=== PATIENT | male | born 1955 | race Caucasian/White ===

== ENCOUNTER 2017-03-09 07:59 | Inpatient (IN) | payer MEDICARE, BC ==
[~2017-03-09] VITALS: Ht 172.7 cm; Wt 93.0 kg
[~2017-03-09 07:59] MED LIST: AMLODIPINE BESY10 MG PO; GLIMEPIRIDE2 MG PO; GLIPIZIDE10 MG PO; LASIX20 MG PO; NEXIUM40 MG; PREDNISONE20 MG PO; SODIUM BICARBO454 GM PO
[2017-03-09] MEDS ORDERED: DEXTROSE 50% SYRINGE 50 ML IV STA (08:27)
[2017-03-09 08:32] LABS: BASOPHILS % 0.1 % (0.0-1.0); HEMATOCRIT 37.1 % (38.2-49.6); HEMOGLOBIN 12.5 g/dL (14.0-18.0); LYMPHOCYTES # (AUTO) 0.6 (1.0-3.2); LYMPHOCYTES % 3.2 % (18.0-39.1); MEAN CORPUSCULAR HEMOGLOBIN 32.9 pg (28-32); MEAN CORPUSCULAR HGB CONC 33.7 g/dL (31-35); MEAN CORPUSCULAR VOLUME 97.6 fL (81-99); MONOCYTES # (AUTO) 0.4 (0.2-0.8); MONOCYTES % 2.4 % (4.4-11.3); NEUTROPHILS # (AUTO) 16.2 (2.1-6.9); NEUTROPHILS % 93.4 % (38.7-80.0); PLATELET COUNT 135 x10e3/uL (140-360); RED CELL DISTRIBUTION WIDTH 15.9 % (11.7-14.4)
[2017-03-09 08:53] LABS: ALBUMIN 3.4 g/dL (3.5-5.0); ALBUMIN/GLOBULIN RATIO 0.8 (0.8-2.0); ANION GAP 24.4 mmol/L (8-16); CALCIUM 9.3 mg/dL (8.4-10.2); CREATININE, SERUM 9.68 mg/dL (0.72-1.25); POTASSIUM 4.4 mmol/L (3.5-5.1)
--- NOTE | 2017-03-09 08:58 | Diagnostic Imaging Report ---
PROCEDURE: CHEST SINGLE (PORTABLE) COMPARISON: 09/28/2014. INDICATIONS: SHORT OF BREATH, LOW BLOOD SUGAR FINDINGS: Lungs are well-inflated. Patchy consolidation laterally within the left midlung with loss of the left heart border at the apex.. No pleural effusion or pneumothorax. Stable cardiomediastinal contour with tortuosity of the thoracic aorta. Heart size is normal for technique. No acute osseous abnormality. CONCLUSION: Lingular pneumonia. Followup chest radiograph in 6-8 weeks is suggested to document resolution. Dictated by: Schuyler Mondragon M.D. on 03/09/2017 at 9:06 Electronically approved by: Schuyler Mondragon M.D. on 03/09/2017 at 9:06
[2017-03-09] MEDS ORDERED: CEFTRIAXONE SOD 1 GM VIAL IV SCH ×2 (09:45→12:15)
[2017-03-09] MEDS ORDERED: AZITHROMYCIN 500MG/NS 250 ML 250 ML IV ONE (09:45)
[2017-03-09] MEDS ORDERED: SODIUM CHLORIDE 0.9% 1000ML 1,000 ML IV SCH (12:07)
[2017-03-09] MEDS ORDERED: AZITHROMYCIN 500MG/SOD CHL 0.9% 250ML BAG IV SCH (12:15)
[2017-03-09] MEDS ORDERED: ALBUTEROL SULF 0.083% NEB SOLN 3 ML NEB NEB SCH (12:15)
[2017-03-09] MEDS: AZITHROMYCIN 500MG/NS 250 ML 250 ML IV SCH (12:28)
[2017-03-09] MEDS: IPRATROPIUM BROMIDE 0.02% 2.5 ML NEB NEB SCH ×2 (12:51→16:55)
[2017-03-09] MEDS: ALBUTEROL SULF 0.083% NEB SOLN 3 ML NEB NEB SCH ×2 (12:52→16:55)
[2017-03-09] MEDS: DEXTROSE 50% SYRINGE 50 ML IV PRN ×2 (14:10→17:09)
[2017-03-09] MEDS ORDERED: ATORVASTATIN CA20 MG PO (16:45)
[2017-03-09] MEDS ORDERED: ASPIR 8181 MG PO (16:45)
[2017-03-09] MEDS ORDERED: PLAVIX75 MG PO (16:45)
[2017-03-09] MEDS ORDERED: METOPROLOL SUCC25 MG PO (16:45)
[2017-03-09] MEDS: INSULIN REGULAR, HUMAN 100 UNIT/1 ML 3ML VIAL SQ SCH ×2 (17:09→20:59)
[2017-03-09] MEDS ORDERED: IPRATROPIUM BROMIDE 0.02% 2.5 ML NEB NEB SCH (18:00)
[2017-03-09] MEDS: DEXTROSE 5%/0.45% SOD CHL 1,000 ML IV SCH (18:06)
--- NOTE | 2017-03-09 18:58 | History and Physical ---
A 61-year-old male comes in with hypoglycemia and hyperglycemia. HISTORY OF PRESENT ILLNESS: Mr. Yuri Velazquez is a 61-year-old gentleman with a history of end-stage renal disease, who did not do his dialysis for the last Wednesday, which he was supposed to because of chills and rigors. The patient missed dialysis, and continued taking his medication. Today in the morning, the patient was feeling weak, fatigued and fell on his back. Checked his blood sugar and it was in the 30s. Fell on his back and EMS was activated. Came in and saw that his blood sugars were in the 30s. Transferred him here. Was found to have hypoglycemia, and also pneumonia. MEDICATIONS: At home are: 1. Amlodipine 10 mg. 2. Aspirin 81 mg. 3. Atorvastatin 20 mg. 4. Clopidogrel 75 mg. 5. Nexium 40 mg. 6. Lasix 20 mg. 7. Glimepiride 10 mg. 8. Glipizide 10 mg. 9. Metoprolol 25 mg. 10. Prednisone 20 mg. 11. Sodium bicarb 454 mg. 12. 100 mg twice a day. SURGICAL HISTORY: History of fistula in the past. The patient also had stents put in recently by Dr. Givens. MEDICAL HISTORY: History of hypertension, history of coronary artery disease, history of hyperlipidemia, history of reflux esophagitis, history of diabetes mellitus, end-stage renal disease. REVIEW OF SYSTEMS: Negative for chest pain. Positive for shortness of breath. Positive for some nausea. No vomiting. No diarrhea. No constipation or rectal bleeding. Positive for chills and rigors. No hematochezia. No hematemesis. No diplopia. No blurry vision. SOCIAL HISTORY: No ETOH. No IV drug abuse. PHYSICAL EXAMINATION GENERAL: The patient is alert and oriented times 3. VITAL SIGNS: He is also having some chills as we speak. Pulse is 94, respirations 18, blood pressure 144/80, and pulse ox 98%, temperature not recorded right now. Temperature is 97.9. HEENT: Normocephalic and atraumatic. Pupils reactive to light and accommodation. CV: S1 and S2. Tachy. ABDOMEN: Soft, nontender and nondistended. LUNGS: Positive for rhonchi bilaterally. Short inspiratory wheezes too. EXTREMITIES: No clubbing. No cyanosis. No edema. Decreased pulses in both bilateral extremities, but palpable. IMAGING: Chest x-ray shows lingular pneumonia. LABORATORY VALUES: White count is 17,000, hemoglobin 12.5, hematocrit 33.1. Neutrophil count was 16.2. Chemistry: Sodium 141, bicarb low at 20, BUN 18, creatinine 9.68. Estimated GFR of 5. Glucose is 48. Repeat was 77 and 86. Total bili was 0.9. AST and ALT normal. Albumin was low at 3.4. ASSESSMENT 1. Pneumonia, lingular. 2. Hypoglycemia secondary to use of glimepiride. Put the patient on D5-1/2 normal saline at 70 mL an hour. Once dialysis is done, the patient can be taken off of that. For right now, will continue the patient on Rocephin and Zithromax. Home medications will be restarted. Further recommendation per clinical course. Also, albuterol and Atrovent treatments, and O2 protocol will be reinstated. Job#: [id number] PR
[2017-03-09] MEDS: CEFTRIAXONE SOD 1 GM VIAL IV SCH (20:58)
[2017-03-09] MEDS: ATORVASTATIN 40 MG TAB PO SCH (20:59)
[2017-03-09] MEDS ORDERED: ATORVASTATIN 20 MG TAB PO SCH (21:00)
[2017-03-09] MEDS ORDERED: SODIUM CHLORIDE 0.9% 1000ML 2,000 ML ONE (22:29)
[2017-03-10] VITALS (8 sets, daily range): BP systolic 108–127; BP diastolic 60–75
[2017-03-10] MEDS: DEXTROSE 50% SYRINGE 50 ML IV PRN (00:17)
[2017-03-10] MEDS: IPRATROPIUM BROMIDE 0.02% 2.5 ML NEB NEB SCH ×4 (02:25→21:05)
[2017-03-10] MEDS: ALBUTEROL SULF 0.083% NEB SOLN 3 ML NEB NEB SCH ×6 (02:25→23:00)
[2017-03-10] MEDS: DEXTROSE 5%/0.45% SOD CHL 1,000 ML IV SCH (06:39)
[2017-03-10] MEDS: TRAMADOL HCL 50 MG TAB PO PRN ×2 (06:43→12:13)
[2017-03-10] MEDS: INSULIN REGULAR, HUMAN 100 UNIT/1 ML 3ML VIAL SQ SCH ×4 (07:30→21:14)
[2017-03-10] MEDS ORDERED: SODIUM CHLORIDE 0.9% 1000ML 2,000 ML ONE (08:01)
[2017-03-10] MEDS: METOPROLOL SUCCINATE 25 MG TAB XL PO SCH (09:00)
[2017-03-10] MEDS: AMLODIPINE BESYLATE 10 MG TAB PO SCH ×2 (09:00→15:56)
[2017-03-10] MEDS ORDERED: OSELTAMIVIR PHOSPHATE 75 MG CAP PO SCH (09:00)
[2017-03-10] MEDS ORDERED: SODIUM BICARBONATE PO SCH (09:00)
[2017-03-10] MEDS: AZITHROMYCIN 500MG/NS 250 ML 250 ML IV SCH (10:43)
[2017-03-10] MEDS: CEFTRIAXONE SOD 1 GM VIAL IV SCH ×2 (10:43→21:14)
[2017-03-10] MEDS: CLOPIDOGREL BISULFATE 75 MG TAB PO SCH (10:45)
[2017-03-10] MEDS: PANTOPRAZOLE SOD 40 MG TABEC PO SCH (10:45)
[2017-03-10] MEDS: ASPIRIN 81 MG CHEW TAB PO SCH (10:45)
[2017-03-10] MEDS: SODIUM BICARBONATE 650 MG TAB PO SCH ×2 (10:45→16:54)
[2017-03-10] MEDS ORDERED: SODIUM CHLORIDE 0.9% 1000ML 1,000 ML IV PRN (11:30)
[2017-03-10] MEDS ORDERED: MANNITOL 25% 12.5GM/50 ML VIAL IV PRN (11:30)
[2017-03-10] MEDS ORDERED: HEPARIN SOD (PORCINE) 1000 UNIT/ML SDV IV PRN (11:30)
[2017-03-10] MEDS ORDERED: ALBUMIN HUMAN 50 ML IV PRN (11:30)
[2017-03-10] MEDS ORDERED: VANCOMYCIN HCL 1 GM in SODIUM CHLORIDE 0.9% 250ML 250 ML IV SCH ×2 (14:45→15:00)
--- NOTE | 2017-03-10 15:38 | Consultation ---
DATE OF CONSULTATION: REASON FOR CONSULTATION: Pneumonia. HISTORY OF PRESENT ILLNESS: This is a very pleasant, 61-year-old white gentleman who has history of end-stage disease on hemodialysis. Apparently, he missed his dialysis day on Wednesday. History of hypertension. History of hypercholesterolemia and asthma. The patient is telling me that he is coming with 2 days' history of fever, chills, not feeling well, shortness of breath, cough. He came to the emergency room. In the emergency room, he had a glucose of 30. He was evaluated. He was admitted. Infectious disease was consulted today. He said he is feeling better. PAST MEDICAL HISTORY: Hypertension, coronary artery disease, hyperlipidemia, reflux esophagitis, end-stage renal disease on hemodialysis, diabetes mellitus. PAST SURGICAL HISTORY: IV access for dialysis, AV fistula. ALLERGIES: NKA. SOCIAL HISTORY: He denies smoking, drug abuse or alcohol abuse. FAMILY HISTORY: Hypertension. HOME MEDICATIONS: Amlodipine, aspirin, atorvastatin, clopidogrel, Nexium, Lasix, glipizide and prednisone. Medication list reviewed. LABORATORY DATA: Reviewed. His white count is 17.3, hemoglobin 12.5, hematocrit 37. His influenza A was positive. His blood cultures are showing gram-positive cocci. PHYSICAL EXAMINATION GENERAL: He is alert and oriented, does not seem to be in acute distress. VITALS: Stable, currently afebrile. HEENT: He is not icteric. NECK: Supple. CHEST: A few crackles bilateral. COR: No murmur. ABDOMEN: Soft. Bowel sounds present. EXTREMITIES: No edema. SKIN: No rash. IMPRESSION 1. Sepsis. 2. Influenza. 3. Chronic kidney disease. 4. Bacteremia, gram-positive cocci, concern about the source. 5. Pneumonia. Will put him on vancomycin. Continue Rocephin. Continue azithromycin. Continue Tamiflu. Will adjust for his kidney function. Will follow with you. Recheck CBC. Recheck chem panel. Further recommendations depending on his finding of the cultures. Job#: [id number]
[2017-03-10] MEDS: ATORVASTATIN 40 MG TAB PO SCH (21:14)
[2017-03-11] VITALS (7 sets, daily range): BP systolic 107–143; BP diastolic 58–89
[2017-03-11] MEDS: IPRATROPIUM BROMIDE 0.02% 2.5 ML NEB NEB SCH ×4 (03:00→20:15)
[2017-03-11] MEDS: ALBUTEROL SULF 0.083% NEB SOLN 3 ML NEB NEB SCH ×5 (03:00→20:15)
[2017-03-11] MEDS: INSULIN REGULAR, HUMAN 100 UNIT/1 ML 3ML VIAL SQ SCH ×4 (07:30→20:45)
[2017-03-11 08:03] LABS: BASOPHILS % 0.6 % (0.0-1.0); EOSINOPHILS % 0.6 % (0.0-6.0); HEMATOCRIT 31.8 % (38.2-49.6); HEMOGLOBIN 10.6 g/dL (14.0-18.0); LYMPHOCYTES # (AUTO) 1.2 (1.0-3.2); MEAN CORPUSCULAR HEMOGLOBIN 32.8 pg (28-32); MEAN CORPUSCULAR HGB CONC 33.3 g/dL (31-35); MEAN CORPUSCULAR VOLUME 98.5 fL (81-99); MONOCYTES # (AUTO) 0.3 (0.2-0.8); MONOCYTES % 6.5 % (4.4-11.3); NEUTROPHILS # (AUTO) 3.5 (2.1-6.9); NEUTROPHILS % 68.9 % (38.7-80.0); PLATELET COUNT 117 x10e3/uL (140-360); RED BLOOD COUNT 3.23 x10e6/uL (4.3-5.7); RED CELL DISTRIBUTION WIDTH 16.1 % (11.7-14.4)
[2017-03-11] MEDS: ASPIRIN 81 MG CHEW TAB PO SCH (08:26)
[2017-03-11] MEDS: SODIUM BICARBONATE 650 MG TAB PO SCH ×2 (08:26→17:26)
[2017-03-11] MEDS: CLOPIDOGREL BISULFATE 75 MG TAB PO SCH (08:26)
[2017-03-11] MEDS: CEFTRIAXONE SOD 1 GM VIAL IV SCH ×2 (08:26→20:45)
[2017-03-11] MEDS: AZITHROMYCIN 500MG/NS 250 ML 250 ML IV SCH (08:26)
[2017-03-11] MEDS: OSELTAMIVIR PHOSPHATE 75 MG CAP PO SCH (08:26)
[2017-03-11] MEDS: PANTOPRAZOLE SOD 40 MG TABEC PO SCH (08:26)
[2017-03-11 08:30] LABS: ANION GAP 18.3 mmol/L (8-16); CALCIUM 8.8 mg/dL (8.4-10.2); CREATININE, SERUM 7.17 mg/dL (0.72-1.25); POTASSIUM 4.3 mmol/L (3.5-5.1)
[2017-03-11] MEDS: AMLODIPINE BESYLATE 10 MG TAB PO SCH ×2 (09:00→17:26)
[2017-03-11] MEDS: METOPROLOL SUCCINATE 25 MG TAB XL PO SCH (09:00)
[2017-03-11] MEDS: TRAMADOL HCL 50 MG TAB PO PRN (09:07)
[2017-03-11] MEDS: ATORVASTATIN 40 MG TAB PO SCH (20:45)
[2017-03-12 00:32] VITALS: BP 140/83
[2017-03-12] MEDS: IPRATROPIUM BROMIDE 0.02% 2.5 ML NEB NEB SCH ×5 (02:45→19:15)
[2017-03-12] MEDS: ALBUTEROL SULF 0.083% NEB SOLN 3 ML NEB NEB SCH ×6 (02:45→23:00)
[2017-03-12 04:28] VITALS: BP 136/82
[2017-03-12] MEDS: PANTOPRAZOLE SOD 40 MG TABEC PO SCH (07:30)
[2017-03-12] MEDS: INSULIN REGULAR, HUMAN 100 UNIT/1 ML 3ML VIAL SQ SCH ×4 (07:30→21:00)
[2017-03-12 08:00] VITALS: BP 149/69
[2017-03-12] MEDS: CLOPIDOGREL BISULFATE 75 MG TAB PO SCH (09:00)
[2017-03-12] MEDS: AMLODIPINE BESYLATE 10 MG TAB PO SCH ×2 (09:00→17:34)
[2017-03-12] MEDS: CEFTRIAXONE SOD 1 GM VIAL IV SCH ×2 (09:00→22:25)
[2017-03-12] MEDS: SODIUM BICARBONATE 650 MG TAB PO SCH ×2 (09:00→17:33)
[2017-03-12] MEDS: AZITHROMYCIN 500MG/NS 250 ML 250 ML IV SCH (09:00)
[2017-03-12] MEDS: METOPROLOL SUCCINATE 25 MG TAB XL PO SCH (09:00)
[2017-03-12] MEDS: ASPIRIN 81 MG CHEW TAB PO SCH (09:00)
[2017-03-12 12:00] VITALS: BP 140/70
[2017-03-12 16:00] VITALS: BP 145/87
[2017-03-12] MEDS: OSELTAMIVIR PHOSPHATE 75 MG CAP PO SCH (17:32)
[2017-03-12 20:00] VITALS: BP 150/79
[2017-03-12] MEDS: ATORVASTATIN 40 MG TAB PO SCH (22:25)
[2017-03-12] MEDS: TRAMADOL HCL 50 MG TAB PO PRN (22:36)
[2017-03-13] VITALS: BP 138/68
[2017-03-13] MEDS: IPRATROPIUM BROMIDE 0.02% 2.5 ML NEB NEB SCH ×4 (02:00→21:45)
[2017-03-13] MEDS: ALBUTEROL SULF 0.083% NEB SOLN 3 ML NEB NEB SCH ×5 (02:00→21:45)
[2017-03-13 04:00] VITALS: BP 128/77
[2017-03-13 08:00] VITALS: BP 147/81
[2017-03-13] MEDS: PANTOPRAZOLE SOD 40 MG TABEC PO SCH (09:01)
[2017-03-13] MEDS: INSULIN REGULAR, HUMAN 100 UNIT/1 ML 3ML VIAL SQ SCH ×4 (09:40→21:30)
[2017-03-13] MEDS: AMLODIPINE BESYLATE 10 MG TAB PO SCH ×2 (09:51→17:34)
[2017-03-13] MEDS: AZITHROMYCIN 500MG/NS 250 ML 250 ML IV SCH (09:51)
[2017-03-13] MEDS: OSELTAMIVIR PHOSPHATE 75 MG CAP PO SCH (09:51)
[2017-03-13] MEDS: CLOPIDOGREL BISULFATE 75 MG TAB PO SCH (09:51)
[2017-03-13] MEDS: ASPIRIN 81 MG CHEW TAB PO SCH (09:51)
[2017-03-13] MEDS: SODIUM BICARBONATE 650 MG TAB PO SCH ×2 (09:51→17:34)
[2017-03-13] MEDS: CEFTRIAXONE SOD 1 GM VIAL IV SCH ×2 (09:51→21:30)
[2017-03-13] MEDS: METOPROLOL SUCCINATE 25 MG TAB XL PO SCH (09:52)
[2017-03-13 12:00] VITALS: BP 130/65
[2017-03-13 16:00] VITALS: BP 84/63
[2017-03-13 20:00] VITALS: BP 139/71
[2017-03-13] MEDS: ATORVASTATIN 40 MG TAB PO SCH (21:30)
[2017-03-14] MEDS: ALBUTEROL SULF 0.083% NEB SOLN 3 ML NEB NEB SCH ×6 (02:45→23:30)
[2017-03-14] MEDS: IPRATROPIUM BROMIDE 0.02% 2.5 ML NEB NEB SCH ×5 (02:45→23:30)
[2017-03-14 04:00] VITALS: BP 145/80
[2017-03-14 08:00] VITALS: BP 149/88
[2017-03-14] MEDS: CEFTRIAXONE SOD 1 GM VIAL IV SCH ×2 (08:53→20:52)
[2017-03-14] MEDS: PANTOPRAZOLE SOD 40 MG TABEC PO SCH (08:53)
[2017-03-14] MEDS: CLOPIDOGREL BISULFATE 75 MG TAB PO SCH (08:54)
[2017-03-14] MEDS: SODIUM BICARBONATE 650 MG TAB PO SCH ×2 (08:54→16:51)
[2017-03-14] MEDS: METOPROLOL SUCCINATE 25 MG TAB XL PO SCH (08:54)
[2017-03-14] MEDS: OSELTAMIVIR PHOSPHATE 75 MG CAP PO SCH (08:54)
[2017-03-14] MEDS: AMLODIPINE BESYLATE 10 MG TAB PO SCH ×2 (08:54→16:51)
[2017-03-14] MEDS: AZITHROMYCIN 500MG/NS 250 ML 250 ML IV SCH (08:54)
[2017-03-14] MEDS: ASPIRIN 81 MG CHEW TAB PO SCH (08:54)
[2017-03-14] MEDS: INSULIN REGULAR, HUMAN 100 UNIT/1 ML 3ML VIAL SQ SCH ×4 (08:57→20:53)
[2017-03-14 16:00] VITALS: BP 134/80
[2017-03-14 20:00] VITALS: BP_SYST 106; BP_SYST 143; BP_DIAS 62; BP_DIAS 88
[2017-03-14] MEDS: ATORVASTATIN 40 MG TAB PO SCH (20:53)
[2017-03-15] VITALS: BP 141/80
[2017-03-15] MEDS: ALBUTEROL SULF 0.083% NEB SOLN 3 ML NEB NEB SCH ×4 (02:47→14:58)
[2017-03-15 04:00] VITALS: BP 136/81
[2017-03-15] MEDS: IPRATROPIUM BROMIDE 0.02% 2.5 ML NEB NEB SCH ×2 (07:00→13:00)
[2017-03-15] MEDS: INSULIN REGULAR, HUMAN 100 UNIT/1 ML 3ML VIAL SQ SCH ×3 (07:30→16:27)
[2017-03-15] MEDS: PANTOPRAZOLE SOD 40 MG TABEC PO SCH (07:30)
[2017-03-15 08:00] VITALS: BP 136/81
[2017-03-15 08:23] VITALS: BP 136/78
[2017-03-15] MEDS: CLOPIDOGREL BISULFATE 75 MG TAB PO SCH (09:00)
[2017-03-15] MEDS ORDERED: MANNITOL 25% 12.5GM/50 ML VIAL IV PRN (09:00)
[2017-03-15] MEDS: SODIUM BICARBONATE 650 MG TAB PO SCH ×2 (09:00→16:28)
[2017-03-15] MEDS ORDERED: ALBUMIN HUMAN 12.5GM / 50ML IV PRN (09:00)
[2017-03-15] MEDS: AMLODIPINE BESYLATE 10 MG TAB PO SCH ×2 (09:00→16:28)
[2017-03-15] MEDS ORDERED: SODIUM CHLORIDE 0.9% 1000ML 2,000 ML IV PRN (09:00)
[2017-03-15] MEDS: OSELTAMIVIR PHOSPHATE 75 MG CAP PO SCH (09:00)
[2017-03-15] MEDS: CEFTRIAXONE SOD 1 GM VIAL IV SCH (09:00)
[2017-03-15] MEDS ORDERED: SODIUM CHLORIDE 0.9% 250ML 500 ML IV PRN (09:00)
[2017-03-15] MEDS: ASPIRIN 81 MG CHEW TAB PO SCH (09:00)
[2017-03-15] MEDS: AZITHROMYCIN 500MG/NS 250 ML 250 ML IV SCH (09:00)
[2017-03-15] MEDS: METOPROLOL SUCCINATE 25 MG TAB XL PO SCH (09:00)
[2017-03-15 11:46] LABS: BASOPHILS % 0.4 % (0.0-1.0); EOSINOPHILS # (AUTO) 0.2 (0.0-0.4); EOSINOPHILS % 2.2 % (0.0-6.0); HEMATOCRIT 33.2 % (38.2-49.6); HEMOGLOBIN 11.4 g/dL (14.0-18.0); LYMPHOCYTES # (AUTO) 1.2 (1.0-3.2); LYMPHOCYTES % 13.7 % (18.0-39.1); MEAN CORPUSCULAR HEMOGLOBIN 32.7 pg (28-32); MEAN CORPUSCULAR HGB CONC 34.3 g/dL (31-35); MEAN CORPUSCULAR VOLUME 95.1 fL (81-99); MONOCYTES # (AUTO) 0.4 (0.2-0.8); MONOCYTES % 4.9 % (4.4-11.3); NEUTROPHILS # (AUTO) 6.5 (2.1-6.9); NEUTROPHILS % 77.8 % (38.7-80.0); RED BLOOD COUNT 3.49 x10e6/uL (4.3-5.7); RED CELL DISTRIBUTION WIDTH 15.3 % (11.7-14.4)
[2017-03-15 11:48] LABS: PLATELET COUNT 150 x10e3/uL (140-360)
[2017-03-15 12:20] VITALS: BP 109/75
[2017-03-15 12:20] LABS: ANION GAP 14.7 mmol/L (8-16); CALCIUM 8.9 mg/dL (8.4-10.2); CREATININE, SERUM 3.78 mg/dL (0.72-1.25); POTASSIUM 3.7 mmol/L (3.5-5.1)
[2017-03-15] MEDS ORDERED: VANCOMYCIN 1GM/NS 250 ML 250 ML IV SCH (14:00)
--- NOTE | 2017-03-15 15:45 | Progress Note ---
DATE: March 15, 2017 Mr. Velazquez does not want me to examine him, but he is overall doing much better. He has no complaints and he wants to talk to his doctor. He was very comfortable. He just had hemodialysis. Laboratory data reviewed and chart reviewed. PHYSICAL EXAMINATION: Refused. IMPRESSION: 1. Gram-positive cocci bacteremia, resolved. 2. Influenza, doing well. 3. Pneumonia, doing well. PLAN: Can discharge home with Z-Darrell and Augmentin for 5 more days. Job#: [id number]
[2017-03-15] MEDS ORDERED: AUGMENTIN 875-1 EACH PO (16:10)
[2017-03-15] MEDS ORDERED: AZITHROMYCIN250 MG PO (16:10)
[2017-03-15 16:33] VITALS: BP 119/74
[2017-03-15] MEDS ORDERED: VANCOMYCIN HCL 1 GM in SODIUM CHLORIDE 0.9% 250ML 250 ML IV SCH (16:45)
== END 2017-03-15 17:33 | disposition home or self-care (01) | DRG 871 ==
LOC: ER 07:59 → ERHOLD 12:34 → MED/SURG2 03-10 00:26
PROVIDERS: ADMIT Internal Medicine; ATTEND Internal Medicine
PROC: 5A1D70Z Performance of Urinary Filtration, Intermittent, Less than 6 Hours Per Day (ICD-10-PCS; principal; 2017-03-09)
DX: A41.9 Sepsis, unspecified organism (principal); N18.6 End stage renal disease; J11.00 Influenza due to unidentified influenza virus with unspecified type of pneumonia; E11.22 Type 2 diabetes mellitus with diabetic chronic kidney disease; E11.649 Type 2 diabetes mellitus with hypoglycemia without coma; I12.0 Hypertensive chronic kidney disease with stage 5 chronic kidney disease or end stage renal disease; Z99.2 Dependence on renal dialysis; J45.909 Unspecified asthma, uncomplicated; D64.9 Anemia, unspecified; T38.3X5A Adverse effect of insulin and oral hypoglycemic [antidiabetic] drugs, initial encounter; Z79.4 Long term (current) use of insulin; Z87.891 Personal history of nicotine dependence
CPT/HCPCS: 36415; 71010; 80048; 80053; 82948; 85025; 86706; 87040; 87071; 87186; 87205; 87400; 93005; 99284; J0456; J0696; J2150; J3370; J7030; J7050; J7799

== ENCOUNTER 2018-04-14 00:05 | Emergency (ER) | payer MEDICARE ==
[~2018-04-14] VITALS: Ht 172.7 cm; Wt 97.5 kg
[~2018-04-14 00:05] MED LIST changes: +ASPIR 8181 MG PO; +ATORVASTATIN CA20 MG PO; +AUGMENTIN 875-1 EACH PO; +AZITHROMYCIN250 MG PO; +METOPROLOL SUCC25 MG PO; +PLAVIX75 MG PO
--- OUTSIDE RECORDS SUMMARY | 2018-04-14 00:07 | XMS REPORT ---
Author Author [facility] Address Unknown Phone Unavailable Care Team Providers Care It Quality Assurance Analyst Name Role Phone Cris LINTON Unavailable Unavailable Problems This patient has no known problems. Allergies, Adverse Reactions, Alerts This patient has no known allergies or adverse reactions. Medications This patient has no known medications. Results Test Description Test Time Test Comments Text Results Atomic Results Result Comments CHEST SINGLE (PORTABLE) [place] [address] Patient Name: MICHAEL MAGANA MR #: [id number] : 1955 Age/Sex: 61/M Req #: [id number] Adm Physician: Ordered by: CLIFTON LINTON MD Report #: [id number] Location: ER Room/Bed: Procedure: [id number] DX/CHEST SINGLE (PORTABLE) Exam Date: 03/09/17 Exam Time: 0830 REPORT STATUS: Signed PROCEDURE: CHEST SINGLE (PORTABLE) COMPARISON: 09/28/2014. INDICATIONS: SHORT OF BREATH, LOW BLOOD SUGAR FINDINGS: Lungs are well-inflated. Patchy consolidation laterally within the left midlung with loss of the left heart border at the apex.. No pleural effusion or pneumothorax. Stable cardiomediastinal contour with tortuosity of the thoracic aorta. Heart size is normal for technique. No acute osseous abnormality. CONCLUSION: Lingular pneumonia. Followup chest radiograph in 6-8 weeks is suggested to document resolution. Dictated by: Safia Zaragoza M.D. on 03/09/2017 at 9:06 Electronically approved by: Safia Zaragzoa M.D. on 03/09/2017 at 9:06 Dictated By: SAFIA ZARAGOZA MD 5 Transcribed By: TITUS on 03/09/17905 COPY TO: CLIFTON LINTON MD
[2018-04-14] MEDS ORDERED: PREDNISONE 20 MG TAB PO ONE (00:45)
== END 2018-04-14 03:50 | disposition home or self-care (01) ==
LOC: FSED 00:05
DX: R21 Rash and other nonspecific skin eruption (principal); I10 Essential (primary) hypertension; E11.9 Type 2 diabetes mellitus without complications; N28.9 Disorder of kidney and ureter, unspecified
CPT/HCPCS: 99282

== ENCOUNTER → 2018-08-23 | Day surgery (SDC) | payer MEDICARE, OTHER ==
[~2018-08-23] MED LIST changes: +CO Q-10200 MG PO; +FISH OIL PO; +GABAPENTIN300 MG PO; +MIDAZOLAM HCL 2 MG/2 ML VIAL ONE; +MORPHINE SULFATE INJ 10 MG/ML ONE; +OR PHACO EYE KIT ONE; +PREOP PHACO EYE KIT ONE; +PRO AIR INH; +RENVELA0.8 GM PO; +SODIUM CHLORIDE 0.9% 500ML 500 ML ONE; +TASIGNA150 MG PO; +ULTRAM 50MG50 MG PO; +VIT D PO
[2018-08-23 13:00] VITALS: BP 130/76
== END | disposition home or self-care (01) ==
LOC: OR 08:33
PROVIDERS: ATTEND Ophthalmology
DX: H25.11 Age-related nuclear cataract, right eye (principal); E11.22 Type 2 diabetes mellitus with diabetic chronic kidney disease; I12.0 Hypertensive chronic kidney disease with stage 5 chronic kidney disease or end stage renal disease; N18.6 End stage renal disease; I48.91 Unspecified atrial fibrillation; J45.909 Unspecified asthma, uncomplicated; M25.511 Pain in right shoulder; Z88.6 Allergy status to analgesic agent; Z88.1 Allergy status to other antibiotic agents; Z99.2 Dependence on renal dialysis; Z79.4 Long term (current) use of insulin; Z79.02 Long term (current) use of antithrombotics/antiplatelets; Z79.82 Long term (current) use of aspirin; Z85.6 Personal history of leukemia; Z87.891 Personal history of nicotine dependence
CPT/HCPCS: 36415; 66984; 84132; J2250; J2270; J7040; V2632

== ENCOUNTER → 2018-09-06 | Day surgery (SDC) | payer MEDICARE, OTHER ==
[2018-09-06 13:15] VITALS: BP 133/69
== END | disposition home or self-care (01) ==
LOC: OR 09:44
PROVIDERS: ATTEND Ophthalmology
DX: H25.12 Age-related nuclear cataract, left eye (principal); C91.10 Chronic lymphocytic leukemia of B-cell type not having achieved remission; E11.22 Type 2 diabetes mellitus with diabetic chronic kidney disease; I12.0 Hypertensive chronic kidney disease with stage 5 chronic kidney disease or end stage renal disease; N18.6 End stage renal disease; J45.909 Unspecified asthma, uncomplicated; I48.91 Unspecified atrial fibrillation; I25.10 Atherosclerotic heart disease of native coronary artery without angina pectoris; Z88.6 Allergy status to analgesic agent; Z88.1 Allergy status to other antibiotic agents; Z79.4 Long term (current) use of insulin; Z79.84 Long term (current) use of oral hypoglycemic drugs; Z79.02 Long term (current) use of antithrombotics/antiplatelets; Z79.82 Long term (current) use of aspirin; Z95.5 Presence of coronary angioplasty implant and graft
CPT/HCPCS: 36415; 66984; 82948; 84132; J2250; J2270; J7040; V2632

== ENCOUNTER 2019-04-25 14:00 | Inpatient (IN) | payer MEDICARE, OTHER ==
[2019-04-18 10:27] LABS: BASOPHILS # (AUTO) 0.1 (0.0-0.1); BASOPHILS % 0.9 % (0.0-1.0); EOSINOPHILS # (AUTO) 1.7 (0.0-0.4); EOSINOPHILS % 14.4 % (0.0-6.0); HEMATOCRIT 35.5 % (38.2-49.6); HEMOGLOBIN 11.6 g/dL (14.0-18.0); LYMPHOCYTES # (AUTO) 1.9 (1.0-3.2); LYMPHOCYTES % 15.8 % (18.0-39.1); MEAN CORPUSCULAR HEMOGLOBIN 33.3 pg (28-32); MEAN CORPUSCULAR HGB CONC 32.7 g/dL (31-35); MONOCYTES # (AUTO) 0.7 (0.2-0.8); MONOCYTES % 6.1 % (4.4-11.3); NEUTROPHILS # (AUTO) 7.3 (2.1-6.9); NEUTROPHILS % 61.5 % (38.7-80.0); PLATELET COUNT 154 x10e3/uL (140-360); RED BLOOD COUNT 3.48 x10e6/uL (4.3-5.7); RED CELL DISTRIBUTION WIDTH 21.7 % (11.7-14.4)
[2019-04-18 10:48] LABS: ALBUMIN 3.8 g/dL (3.5-5.0); ALBUMIN/GLOBULIN RATIO 1.2 (0.8-2.0); ANION GAP 19.5 mmol/L (8-16); CALCIUM 8.5 mg/dL (8.4-10.2); CREATININE, SERUM 6.28 mg/dL (0.72-1.25); POTASSIUM 4.5 mmol/L (3.5-5.1)
[2019-04-18 13:18] LABS: BAND NEUTROPHILS % (MANUAL) 1 %; EOSINOPHILS % (MANUAL) 9 % (0-7); LYMPHOCYTES % (MANUAL) 18 % (19-48); MONOCYTES % (MANUAL) 4 % (3.4-9.0); NEUTROPHILS % (MANUAL) 67 % (40-74)
[2019-04-18 13:19] LABS: RBC MORPHOLOGY COMMENT NORMAL
[2019-04-18 13:20] LABS: PLATELET ESTIMATE ADEQUATE; PLATELET MORPHOLOGY COMMENT FEW LARGE
[2019-04-25] VITALS (16 sets, daily range): BP systolic 132–155; BP diastolic 65–87
[~2019-04-25] VITALS: Ht 167.6 cm; Wt 92.5 kg
[~2019-04-25 14:00] MED LIST changes: +GABAPENTIN400 MG PO; +IBUPROFEN200 MG PO; -MIDAZOLAM HCL 2 MG/2 ML VIAL ONE; -MORPHINE SULFATE INJ 10 MG/ML ONE; -OR PHACO EYE KIT ONE; -PREOP PHACO EYE KIT ONE; +PROAIR HFA INH8.5 GM INH; -SODIUM CHLORIDE 0.9% 500ML 500 ML ONE; +VITAMIN D32000 UNI1 PO
[2019-04-25] MEDS ORDERED: HEPARIN SOD/SOD CHLORIDE 2,000 ML ONE (15:28)
[2019-04-25] MEDS ORDERED: MIDAZOLAM HCL 2 MG/2 ML VIAL ONE (15:28)
[2019-04-25] MEDS ORDERED: FENTANYL CITRATE/PF 100MCG/2 ML INJ ONE (15:28)
[2019-04-25] MEDS ORDERED: LIDOCAINE HCL 2% LOCAL 20 ML VIAL ONE (15:28)
[2019-04-25] MEDS ORDERED: SODIUM CHLORIDE 0.9% 1000ML 1,000 ML ONE (15:29)
[2019-04-25] MEDS ORDERED: IOPAMIDOL 300MG/ML 100 ML INFUS..BTL IV ONE (15:29)
[2019-04-25] MEDS ORDERED: ASPIRIN 325 MG TAB ONE (16:26)
[2019-04-25] MEDS ORDERED: PRASUGREL 10 MG TAB ONE (16:26)
[2019-04-25] MEDS ORDERED: PROTAMINE SULFATE 10 MG/ML 5 ML VIAL ONE (16:39)
--- NOTE | 2019-04-25 17:45 | NUR ---
1745spoke with Dr Givens ,Renal 1800 ADA ordered. states plan to dc pt in am for dialysis at [facility]. mitch/rn
--- NOTE | 2019-04-25 19:26 | NUR ---
Report called to Magdy Leigh 1 pt transferred via stretcher on telemetry pt A/A vss denies pain, dressing intact LT groin no s/sx hematoma bleeding noted.
--- NOTE | 2019-04-25 19:35 | NUR ---
Pt arrived to the unit from general laborer s/p peripheral angiogram. Pt alert and oriented x3. On strict bedrest till 2300. Pressure gauze dressing on left groin appear clean and dry. Pt having intermittent pain on right foot. Right foot covered with gauze and kerlix. Ulcer wound on right big toe and covered with dressing. Left upper arm fistula noted for hemodialysis. Call santamaria within reach. Bed alarm active.
--- NOTE | 2019-04-25 20:59 | Operative Report ---
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 PROCEDURES PERFORMED: 1. Unilateral extremity angiogram with third-order catheter placement from the left femoral artery to the right superficial femoral artery. 2. Stent placed in the right femoral artery. COMPLICATIONS: None. RECOMMENDATIONS: Dual-antiplatelet therapy for life. DESCRIPTION OF PROCEDURE: Access was obtained in the left femoral artery. A 6-Jordanian sheath was placed, advanced to the right femoral artery with third-order catheter placement. Aneurysm heavily calcified in the proximal right femoral artery was noted. The patient received heparin for anticoagulation. The aneurysm was crossed using a Glidewire. Wire was exchanged to a supporting wire. Predilatation with 5 mm balloon following which a single covered Viabahn stent 6 x 50 mm was deployed, post dilated with a 6 mm balloon with exclusion of the aneurysm. Left groin sheath was secured in place. The patient observed in the hospital overnight. Jose Alfredo Givens MD KSB/MODL /[id number]
[2019-04-25] MEDS ORDERED: TRAMADOL HCL 50 MG TAB PO SCH (23:15)
[2019-04-25] MEDS ORDERED: IBUPROFEN 200 MG TAB PO PRN (23:15)
[2019-04-25] MEDS ORDERED: ALBUTEROL SULFATE HFA 8GM INHALATION AEROSOL INH PRN (23:15)
[2019-04-25] MEDS: TRAMADOL HCL 50 MG TAB PO PRN (23:25)
[2019-04-26] VITALS (8 sets, daily range): BP systolic 112–159; BP diastolic 58–75
--- NOTE | 2019-04-26 05:00 | NUR ---
Dr. Cat came and visited pt in room. MD aware of pt condition. MD ordered nurse to undress the dressing on right foot around 0530 to assess the wound on the toes.
--- NOTE | 2019-04-26 05:30 | NUR ---
Dressing on right foot taken off. Gangrenous and ulcerated wounds noted on right big toe and 3rd right toe.
--- NOTE | 2019-04-26 05:35 | NUR ---
Dr. Cat came and saw pt. MD aware of pt condition. MD explained to patient that he will be the attending physician and that patient will have to stay and possibly be seen by Dr. Erickson ([employer]) for possible debridement of wounds on toes. Pt agreed to the plan.
--- NOTE | 2019-04-26 05:40 | NUR ---
Nurse performed dressing change on toes on right foot. 4x4 gauze inserted in between toes of right foot then covered with extra gauze and wrapped with kerlix. Dressing clean, dry and intact at this time.
[2019-04-26] MEDS: TRAMADOL HCL 50 MG TAB PO PRN ×2 (06:00→20:55)
[2019-04-26] MEDS ORDERED: CEFEPIME HCL 1 GM VIAL IV SCH (06:30)
--- NOTE | 2019-04-26 06:31 | Consultation ---
DATE OF CONSULTATION: HISTORY OF PRESENT ILLNESS: The patient is status post a femoral artery repair. He has some complaints of right foot pain from a bad toe, otherwise is unremarkable. PAST MEDICAL HISTORY: Significant for diabetes, end-stage renal disease, hypertension, hyperlipidemia. MEDICATIONS: See MAR. ALLERGIES: FENTANYL AND CLINDAMYCIN. SOCIAL HISTORY: Nonsmoker, nondrinker. FAMILY HISTORY: Hypertension. PHYSICAL EXAMINATION: VITAL SIGNS: Temperature 98.0, pulse 81, blood pressure 140/75, and saturations 92% on room air. GENERAL: No apparent distress. CARDIOVASCULAR: Regular rate and rhythm. NECK: Supple. LUNGS: Clear to auscultation bilaterally. ABDOMEN: Good bowel sounds. Soft, nontender. EXTREMITIES: No clubbing or cyanosis. Right foot shows avulsed toenail with some mild bleeding at the toe area. NEUROLOGIC: Nonfocal. ASSESSMENT AND PLAN: 1. Status post right femoral artery repair. Continue with postprocedure care per Dr. Givens. 2. End-stage renal disease. Continue with current care. 3. Diabetes. Continue with current care and monitoring. 4. Hyperlipidemia. Continue with his atorvastatin. 5. Hypertension. Continue with his medication. 6. Right toe pain. The patient would like to have Dr. Erickson see the patient. Please see hospital chart for full details. MD RAYMOND Villa/MODL /[id number]
--- NOTE | 2019-04-26 07:00 | NUR ---
bedside rounds complete no distress noted, updated on poc vocied understanding, denies pain at this time , r hand 20g no ss of infiltration noted, no other co voiced call light in reach will continue to monitor
[2019-04-26] MEDS ORDERED: DEXTROSE 50% SYRINGE 50 ML IV PRN (07:45)
[2019-04-26] MEDS ORDERED: CEFEPIME 1GM/NS 0.9% 50 ML 50 ML IV SCH (08:00)
[2019-04-26] MEDS ORDERED: VANCOMYCIN 1GM/NS 250 ML 250 ML IV SCH (09:00)
[2019-04-26] MEDS: UBIDECARENONE 200 MG PO SCH (09:00)
[2019-04-26 09:35] LABS: BASOPHILS % 0.2 % (0.0-1.0); EOSINOPHILS # (AUTO) 1.1 (0.0-0.4); EOSINOPHILS % 6.3 % (0.0-6.0); HEMATOCRIT 34.5 % (38.2-49.6); LYMPHOCYTES # (AUTO) 0.5 (1.0-3.2); LYMPHOCYTES % 2.8 % (18.0-39.1); MEAN CORPUSCULAR HGB CONC 31.9 g/dL (31-35); MEAN CORPUSCULAR VOLUME 103.6 fL (81-99); MONOCYTES # (AUTO) 0.7 (0.2-0.8); MONOCYTES % 3.8 % (4.4-11.3); NEUTROPHILS # (AUTO) 15.5 (2.1-6.9); NEUTROPHILS % 86.2 % (38.7-80.0); PLATELET COUNT 203 x10e3/uL (140-360); RED BLOOD COUNT 3.33 x10e6/uL (4.3-5.7); RED CELL DISTRIBUTION WIDTH 22.4 % (11.7-14.4)
[2019-04-26] MEDS ORDERED: SODIUM CHLORIDE 0.9% 250ML 250 ML ONE (09:35)
[2019-04-26] MEDS: SEVELAMER CARBONATE 800 MG TAB PO SCH ×3 (09:41→17:10)
[2019-04-26] MEDS: GLIMEPIRIDE 2 MG TAB PO SCH (09:41)
[2019-04-26] MEDS: ASPIRIN 81 MG CHEW TAB PO SCH (09:42)
[2019-04-26] MEDS: ATORVASTATIN 20 MG TAB PO SCH (09:42)
[2019-04-26] MEDS: AMLODIPINE BESYLATE 10 MG TAB PO SCH (09:43)
[2019-04-26] MEDS: CLOPIDOGREL BISULFATE 75 MG TAB PO SCH (09:43)
[2019-04-26] MEDS: OMEGA 3 POLYUNSAT FATTY ACIDS 1000 MG SOFTGEL PO SCH (09:43)
[2019-04-26] MEDS: METOPROLOL SUCCINATE 25 MG TAB XL PO SCH (09:47)
[2019-04-26] MEDS: NILOTINIB HCL 150 MG PO SCH ×2 (09:48→22:28)
[2019-04-26] MEDS: CHOLECALCIFEROL 1,000 UNIT TAB PO SCH (09:48)
--- NOTE | 2019-04-26 10:04 | NUR ---
right foot cleansed with diluted iodine, covered with 4x4 and kerlix, pt tolerated well, r hand 20g infiltrated, r ac 20g x 2 sticks tolerated well. left groin dsg intact, pedial pulses palpable, will continue to monitor
[2019-04-26] MEDS ORDERED: SODIUM CHLORIDE 0.9% 1000ML 2,000 ML ONE (11:15)
[2019-04-26] MEDS: INSULIN REGULAR, HUMAN 100 UNIT/1 ML 3ML VIAL SQ SCH ×3 (11:30→20:44)
[2019-04-26] MEDS: LINEZOLID 600 MG/D5W 300ML 300 ML IV SCH (12:28)
--- NOTE | 2019-04-26 12:37 | Diagnostic Imaging Report ---
EXAM: FOOT RIGHT COMPLETE DATE: 04/26/2019 9:16 AM INDICATION: Gangrene COMPARISON: None FINDINGS: There is an material overlies the forefoot. There is no evidence for acute fracture or dislocation. No osseous destructive process is identified. Degenerative changes noted within the midfoot and at the first interphalangeal joint. Mild vascular calcifications noted. There is soft tissue swelling without evidence for radiopaque foreign body. IMPRESSION: No radiographic evidence for osteomyelitis. If there is persistent clinical concern, further evaluation could be formed with dedicated MRI examination. Signed by: Dr. Regan Rodriguez MD on 04/26/2019 12:35 PM
--- NOTE | 2019-04-26 13:36 | Consultation ---
DATE OF CONSULTATION: REASON FOR CONSULTATION: Gangrene of the toe. HISTORY OF PRESENT ILLNESS: This patient, who is a 63-year-old white male, history of diabetes mellitus, hypertension, atherosclerotic disease, peripheral vascular disease, had right femoral artery repair. The patient, who also have end-stage renal disease, diabetes mellitus, hyperlipidemia, hypertension, comes in with right toe pain. Apparently, he has been sick for a while. There are gangrenous changes with bad odor. The patient came to the emergency room, where he is being admitted. The patient is currently lying in bed comfortably. PAST MEDICAL HISTORY: Diabetes mellitus, hypertension, end-stage renal disease with neuropathy, peripheral vascular disease, severe. PAST SURGICAL HISTORY: Multiple procedures on his artery. ALLERGIES: CLINDAMYCIN. SOCIAL HISTORY: There is no smoking, drug abuse, or alcohol abuse. FAMILY HISTORY: Hypertension and diabetes. REVIEW OF SYSTEMS: HEENT: Negative. PULMONARY: Negative. CARDIAC: Negative. : Negative. Besides the pain, he denies any other systems at present time. LABORATORY DATA: White count 17.9 and hemoglobin of 11. His sodium 143, potassium 4.5, and creatinine 6.28. MEDICATION LIST: He is on vitamin D, Toprol, and Plavix. He is on cefepime 1 g q.12 and vancomycin q.24. PHYSICAL EXAMINATION: GENERAL: He is currently alert and oriented. Does not seem to be in acute distress. VITAL SIGNS: Stable, currently afebrile. HEENT: He is not icteric. NECK: Supple. CHEST: Clear bilateral. COR: S1 and S2. No S3, S4, or murmur. ABDOMEN: Soft. Bowel sounds present. No tenderness. EXTREMITIES: No edema. The foot, there are gangrenous changes on the toe. There is redness and swelling noted. IMPRESSION: 1. Gangrene of toe with superinfection, cellulitis, probably going to end up with amputation at the level determined by vascular workup. 2. End-stage renal disease, may end up with dialysis. Renal has been consulted. Would recommend to discontinue cefepime and vancomycin for the time being since he has renal failure. We will put him on Zyvox for the time being and cefepime gram a day. Obtain blood cultures. Obtain x-ray of the foot. Vascular workup as above. 3. Neuropathy. 4. Diabetes mellitus. 5. Hypertension. 6. We will follow with you. Thank you for asking me to see this patient. MD TAMAR Corbin/MARCIA /[id number]
--- NOTE | 2019-04-26 14:21 | NUR ---
WOUND CARE CONSULT FOR 63 YO MALE HX OF PERIPHERAL INTERVENTION CATARINA 19 CONSERVATIVE PUP STATUS AND INTERVENTIONS AND VISCO MATTRESS LABS: WBC-PENDING HGB_ PENDING GLUCOSE-PENDING [id number] SKIN ASSESSMENT COMPLETE PATIENT PRESENTS WITH DARK NECROTIC 1ST ,2ND, 3RD RIGHT FOOT TOES RECOMMENDATIONS: NURSING TO CONTINUE TO MAINTAIN CONSERVATIVE PUP STATUS AND INTERVENTIONS AND VISCO MATTRESS NURSING TO CONTINUE TO ASSIST PATIENT OUT OF BED FOR MEALS AND MUCH TOLERATED NURSING TO CONTINUE TO ASSIST PATIENT NEEDED WITH MEALS AND NUTRITIONAL SUPPLEMENTS TO ENSURE PROPER REQUIREMENTS FOR HEALING NURSING TO CONTINUE TO OFFLOAD FEET AND HEELS NEEDED WITH PILLOW SUSPENSION WHEN IN BED PODIATRY CONSULTED ORDERS FOR TREATMENT LISTED IN PATIENT RECORDS Addendum: 04/26/19 at 1430 by Chilango Finley RN Amended: Links added.
[2019-04-26 14:48] LABS: ANION GAP 20.6 mmol/L (8-16); CALCIUM 7.7 mg/dL (8.4-10.2); CREATININE, SERUM 8.73 mg/dL (0.72-1.25); POTASSIUM 4.6 mmol/L (3.5-5.1)
--- NOTE | 2019-04-26 15:27 | Consultation ---
DATE OF CONSULTATION: 04/26/2019 REASON FOR CONSULTATION: Cellulitis with gangrenous changes noted to the right foot with the patient being a ver-ieilatn-cpmzdszve diabetes. HISTORY OF PRESENT ILLNESS: This is a pleasant 63-year-old white male, who was seen at bedside, who underwent surgical repair of his right femoral artery secondary to aneurysm per Dr. Givens. The patient relates he has had a discolored toe for several weeks now and noticed some blood yesterday. He is denying any history of fever, chills, nausea, or vomiting at this time. PAST MEDICAL HISTORY: Remarkable for end-stage renal disease, hypertension, hyperlipidemia, and xpo-yrarcsd-lvqiwcghy diabetes with hypercholesterolemia. PAST SURGICAL HISTORY: Remarkable for thoracentesis, heart catheterization, right lower extremity stenting, and repair of femoral artery per Dr. Givens. ALLERGIES: TO FENTANYL AND CLINDAMYCIN. SOCIAL HISTORY: Denies any smoking, drinking, or recreational drug use. Lives alone. Has no kids. FAMILY HISTORY: Remarkable for diabetes. CURRENT MEDICATIONS: Note listed in the chart including cefepime and vancomycin IV. REVIEW OF SYSTEMS: CARDIAC: He is denying any palpitations or arrhythmias. RESPIRATORY: Denies any shortness of breath or productive cough. GASTROINTESTINAL: Denies any diarrhea or constipation. PHYSICAL EXAMINATION: VITAL SIGNS: Afebrile, pulse rate 70, respirations 16, blood pressure 123/68, and O2 saturation 93%. Podiatric physical examination reveals the following: VASCULATURE: Pedal pulses of both the DP and PT are diminished to both lower extremities. Has gangrenous changes to the 1st, 2nd, and 3rd toes, right foot. DERMATOLOGICAL: As described above with severe foul smell noted to the forefoot aspect of the right foot secondary to the above. NEUROLOGICAL: Reveals a decreased and protective sensation when utilizing [place] 5.07 monofilament wire. MUSCULOSKELETAL: Reveals muscle mass to be asymmetrical. Some footdrop noted to the right lower extremity compared to the left with muscle strength to be 4/5 to the left lower extremity, 0-1/5 to all muscle groups of the right foot with equines deformity present. LABORATORY DATA: Noted has a white blood cell count of 11.8, hemoglobin 11.6, hematocrit 35.5 with a platelet count of 154. ASSESSMENT: Gangrenous changes with cellulitis right foot, peripheral arterial disease, diabetic neuropathy, equinus deformity, and footdrop. PLAN: We will order x-rays three views right foot. CBC with diff will be reordered with an INR. We will start diluted wet-to-dry Betadine b.i.d. to the right lower extremity. The patient will end up needing surgical intervention. We will discuss with Dr. Givens before definitive procedure is done. ELISA Alves/MARCIA /[id number]
--- NOTE | 2019-04-26 19:00 | NUR ---
RECEIVED PATIENT IN BEDSIDE SHIFT REPORT. PATIENT RESTING IN BED AT THIS TIME, RECEIVING HEMODIALYSIS. PAIN REPORTED, BUT PATIENT VERBALIZES HE WILL WAIT FOR PAIN MEDS UNTIL AFTER HD IS COMPLETE. DRESSING TO R FOOT C/D/I. NO S&S OF DISTRESS NOTED. BED LOCKED IN LOWEST POSITION, SIDE RAILS UPX2, CALL LIGHT IN REACH.
--- NOTE | 2019-04-26 20:23 | Consultation ---
DATE OF CONSULTATION: 04/26/2019 HISTORY OF PRESENT ILLNESS: Mr. Velazquez is a 63-year-old gentleman known to our Nephrology service with underlying history of end-stage renal disease secondary to type 2 diabetes, and dialysis at [facility] on Wednesday, Wednesday, and Wednesday. Apparently brought in here with pseudoaneurysm of right leg, has a prior PCI and stenting to right superficial femoral artery. Multiple comorbidities including history of CML, currently on Tasigna 150 mg capsule twice a day under the care of Dr. Kerr. History of hypertension, hyperlipidemia, type 2 diabetes, end-stage renal disease, history of prior [place]. Allergies to clindamycin and fentanyl. Currently awake, alert, resting, in no apparent distress. Has a dressing noted on right foot. Also, apparently slipped and has broken one of his toenails. Dr. Cat aware. LABORATORY DATA: Labs show white count 17.9, hemoglobin 11. Potassium is 4.5 with creatinine of 6.28. These labs were done on 04/18/2019. No repeat labs are done, so I am going to order stat chemistries right now. CURRENT MEDICATIONS: Include Renagel 800 mg p.o. t.i.d. with meals, Tasigna 150 mg p.o. q.12, coenzyme Q10 200 mg daily, insulin sliding scale, pantoprazole 25 mg daily, ibuprofen p.r.n. pain. He is on Amaryl 4 mg p.o. once a day, Plavix 75 mg daily, vitamin D3, atorvastatin, aspirin, amlodipine 10 mg daily, received one time dose of IV vancomycin. He is on cefepime 1 g IV daily, on linezolid 600 mg IV q.12. PHYSICAL EXAMINATION: GENERAL: Awake, alert, and oriented x3, lying supine, in no apparent distress. VITAL SIGNS: Blood pressure 122/58, pulse rate 74, afebrile. HEAD AND NECK: Cornea clear. Oral mucosa moist. LUNGS: Bibasilar rales. HEART: S1, S2 audible. ABDOMEN: Otherwise soft and nontender. No apparent visceromegaly. EXTREMITIES: Lower extremity, no edema. IMPRESSION: End-stage renal disease, mild fluid overload, multiple comorbidities. PLAN: Hemodialysis, dialysis nurse aware. Orders given. Stat labs ordered. Nurse to call me with the results. MD NICKI Perez/MARCIA /[id number]
--- NOTE | 2019-04-26 21:00 | NUR ---
HEMODIALYSIS COMPLETE. 3L REMOVED PER DIALYSIS NURSE.
--- NOTE | 2019-04-26 23:30 | NUR ---
PATIENT STOOD AT SIDE OF BED SO BEDDING COULD BE REARRANGED, PAIN IN HIS RIBS INCREASED DRAMATICALLY WITH MOVEMENT, CAUSING HIM TO BE NAUSEATED. PATIENT VOMITED 100ML OF EMESIS. SPOKE WITH MD FABIAN FOR PRN MEDS, NEW ORDERS RECEIVED.
[2019-04-26] MEDS: ONDANSETRON HCL 4 MG ORAL DISINTEGRATING TAB PO PRN (23:47)
[2019-04-26] MEDS: HYDROCODONE/APAP 10MG-325MG TAB PO PRN (23:47)
[2019-04-27] VITALS (8 sets, daily range): BP systolic 102–130; BP diastolic 59–75
[2019-04-27] MEDS: LINEZOLID 600 MG/D5W 300ML 300 ML IV SCH ×3 (00:09→23:13)
[2019-04-27 05:49] LABS: BASOPHILS # (AUTO) 0.1 (0.0-0.1); BASOPHILS % 0.4 % (0.0-1.0); EOSINOPHILS # (AUTO) 2.6 (0.0-0.4); EOSINOPHILS % 15.6 % (0.0-6.0); HEMOGLOBIN 11.3 g/dL (14.0-18.0); LYMPHOCYTES # (AUTO) 1.1 (1.0-3.2); LYMPHOCYTES % 6.6 % (18.0-39.1); MEAN CORPUSCULAR HEMOGLOBIN 32.4 pg (28-32); MEAN CORPUSCULAR HGB CONC 30.5 g/dL (31-35); MONOCYTES # (AUTO) 0.6 (0.2-0.8); MONOCYTES % 3.8 % (4.4-11.3); NEUTROPHILS # (AUTO) 12.1 (2.1-6.9); NEUTROPHILS % 72.9 % (38.7-80.0); PLATELET COUNT 172 x10e3/uL (140-360); RED BLOOD COUNT 3.49 x10e6/uL (4.3-5.7)
[2019-04-27 06:01] LABS: INR 1.08; PROTHROMBIN TIME 14.7 seconds (11.9-14.5)
[2019-04-27 06:02] LABS: PARTIAL THROMBOPLASTIN TIME 33.6 seconds (23.8-35.5)
[2019-04-27 06:09] LABS: ALBUMIN 3.4 g/dL (3.5-5.0); ALBUMIN/GLOBULIN RATIO 1.2 (0.8-2.0); ANION GAP 17.5 mmol/L (8-16); CALCIUM 8.3 mg/dL (8.4-10.2); CREATININE, SERUM 5.34 mg/dL (0.72-1.25); POTASSIUM 4.5 mmol/L (3.5-5.1)
--- NOTE | 2019-04-27 07:00 | NUR ---
BEDSIDE SHIFT REPORT RECEIVED, PT IN STABLE CONDITION, DENIES PAIN AT THIS TIME, LEFT FISTULA BRUIT AUSCULTATED, THRILL PALPATED, DSG TO RIGHT FOOT, NO OTHER CO VOICED CALL LIGHT IN REACH WILL CONTINUE TO MONITOR
[2019-04-27] MEDS: INSULIN REGULAR, HUMAN 100 UNIT/1 ML 3ML VIAL SQ SCH ×4 (07:30→20:14)
[2019-04-27] MEDS: GLIMEPIRIDE 2 MG TAB PO SCH (08:43)
[2019-04-27] MEDS: SEVELAMER CARBONATE 800 MG TAB PO SCH ×3 (08:43→17:27)
[2019-04-27] MEDS: UBIDECARENONE 200 MG PO SCH (08:43)
[2019-04-27] MEDS: CEFEPIME 1GM/NS 0.9% 50 ML 50 ML IV SCH (08:43)
[2019-04-27] MEDS: ATORVASTATIN 20 MG TAB PO SCH (08:43)
[2019-04-27] MEDS: ASPIRIN 81 MG CHEW TAB PO SCH (08:43)
[2019-04-27] MEDS: OMEGA 3 POLYUNSAT FATTY ACIDS 1000 MG SOFTGEL PO SCH (08:44)
[2019-04-27] MEDS: AMLODIPINE BESYLATE 10 MG TAB PO SCH (08:44)
[2019-04-27] MEDS: CLOPIDOGREL BISULFATE 75 MG TAB PO SCH (08:44)
[2019-04-27] MEDS: METOPROLOL SUCCINATE 25 MG TAB XL PO SCH (08:45)
[2019-04-27] MEDS: CHOLECALCIFEROL 1,000 UNIT TAB PO SCH (08:46)
[2019-04-27] MEDS: NILOTINIB HCL 150 MG PO SCH ×3 (08:46→22:00)
[2019-04-27] MEDS ORDERED: CEFEPIME HCL 1 GM VIAL IV SCH (09:00)
--- NOTE | 2019-04-27 12:05 | Progress Note ---
DATE: 04/27/2019 SUBJECTIVE: The patient is seen at bedside, doing somewhat better. Denies any history of fever, chills, nausea, or vomiting. Still having some swelling to the right lower extremity. OBJECTIVE: VITAL SIGNS: Afebrile, pulse rate 72, respirations 18, blood pressure 122/69, and O2 saturation 99%. EXTREMITIES: Has gangrenous changes noted to the 1st, 2nd, and 3rd toes, right foot. Right great toe the worst with grade 4 ulceration down to possibly bone. No evidence of osteomyelitis on the x-rays yet. Pedal pulses diminished. LABORATORY DATA: Noted. White blood cell count is now 16.6, hemoglobin 11.3 with a platelet count of 172. X-rays of the right foot were negative for any gas in the tissue. ASSESSMENT: Peripheral arterial disease with gangrene, cellulitis, and grade 4 ulcer, right foot. PLAN: We will continue local wound care. Continue IV antibiotics. Definitive procedure will be done sometime next week, which may even include transmetatarsal amputation with Achilles tendon lengthening and no guarantees can be given. We will communicate with Dr. Cat and Dr. Givens. ELISA Alves/MARCIA /[id number]
--- NOTE | 2019-04-27 13:24 | NUR ---
spoke with dr ritter re: dr rosario wants surgery performed wednesday afternoon or another day due to wednesday is pts dialysis day. dr rosario states sundays are only for emergency dialysis only, md dr ritter spoke with dr rosario on the phone. surgery still scheduled for wednesday at 0700 at this time, pt will receive dialysis after surgery. plavix on hold due to sx on wednesday
[2019-04-27] MEDS: HYDROCODONE/APAP 10MG-325MG TAB PO PRN (17:37)
--- NOTE | 2019-04-27 19:00 | NUR ---
RECEIVED PATIENT IN BEDSIDE SHIFT REPORT. PATIENT RESTING IN BED AT THIS TIME. NO PAIN REPORTED. NO S&S OF DISTRESS NOTED. DRESSING TO R FOOT C/D/I. BED LOCKED IN LOWEST POSITION, SIDE RAILS UPX2, CALL LIGHT IN REACH.
[2019-04-28] VITALS (9 sets, daily range): BP systolic 113–133; BP diastolic 59–91
[2019-04-28] MEDS: HYDROCODONE/APAP 10MG-325MG TAB PO PRN ×2 (01:01→05:22)
[2019-04-28] MEDS: ONDANSETRON HCL 4 MG ORAL DISINTEGRATING TAB PO PRN (05:54)
--- NOTE | 2019-04-28 07:08 | NUR ---
Received patient lying in bed with eyes open. Respiration even and unlabored without SOB. Call light in reach.
[2019-04-28] MEDS: INSULIN REGULAR, HUMAN 100 UNIT/1 ML 3ML VIAL SQ SCH ×4 (07:30→21:00)
[2019-04-28] MEDS: ASPIRIN 81 MG CHEW TAB PO SCH ×2 (09:00→09:07)
[2019-04-28] MEDS: AMLODIPINE BESYLATE 10 MG TAB PO SCH (09:00)
[2019-04-28] MEDS: METOPROLOL SUCCINATE 25 MG TAB XL PO SCH (09:00)
[2019-04-28] MEDS: UBIDECARENONE 200 MG PO SCH (09:00)
[2019-04-28] MEDS: SEVELAMER CARBONATE 800 MG TAB PO SCH ×3 (09:06→16:47)
[2019-04-28] MEDS: CHOLECALCIFEROL 1,000 UNIT TAB PO SCH (09:07)
[2019-04-28] MEDS: ATORVASTATIN 20 MG TAB PO SCH (09:07)
[2019-04-28] MEDS: OMEGA 3 POLYUNSAT FATTY ACIDS 1000 MG SOFTGEL PO SCH (09:07)
[2019-04-28] MEDS: CEFEPIME 1GM/NS 0.9% 50 ML 50 ML IV SCH (09:07)
[2019-04-28 09:53] LABS: ANION GAP 17.7 mmol/L (8-16); CREATININE, SERUM 7.37 mg/dL (0.72-1.25); POTASSIUM 4.7 mmol/L (3.5-5.1)
[2019-04-28] MEDS: NILOTINIB HCL 150 MG PO SCH ×2 (10:00→22:00)
[2019-04-28] MEDS: LINEZOLID 600 MG/D5W 300ML 300 ML IV SCH (13:02)
--- NOTE | 2019-04-28 15:10 | NUR ---
Report given to HERMES Bautista the receiving nurse.
--- NOTE | 2019-04-28 15:15 | NUR ---
Betadine wet to dry changed and kerlix applied to right foot. Respiration even and unlabored without SOB.
--- NOTE | 2019-04-28 15:27 | Progress Note ---
DATE: 04/28/2019 SUBJECTIVE: The patient at bedside, doing well. Denies any history of fever, chills, nausea, vomiting, chest pain or shortness of breath. OBJECTIVE: VITALS SIGNS: Afebrile, pulse rate 56, respirations 18, blood pressure 115/73, O2 saturation 94%. LABORATORY DATA: Labs show white blood cell count of 16.6, hemoglobin 11.3. INR of 1.08. Gangrenous changes noted to the right great toe and distal aspect of 3rd toe right foot with some changes also noted to the 2nd digit, right foot. There is erythema surrounding the 1st MPJ. Pedal pulses are diminished. Skin temperature warm and cool to touch. ASSESSMENT: Gangrene and cellulitis with osteo. PLAN: We will continue to the let the foot demarcate. Definitive procedure will be decided on Wednesday. Has decreased dorsiflexion of the right foot when compared to the left secondary to foot drop with also tightness of his Achilles tendon, so tentative procedures will be possible transmetatarsal amputation with Achilles tendon lengthening. We will continue to treat conservatively with local wound care, IV antibiotics. The patient will be getting dialyzed today. ELISA Alves/MARCIA /[id number]
--- NOTE | 2019-04-28 15:29 | NUR ---
Patient's blood sugar per fingerstick is 55. Given D50 IV as ordered PRN. Respiration even and unlabored.
--- NOTE | 2019-04-28 15:45 | NUR ---
Transported patient to room 295, all personal belongings are taken.
--- NOTE | 2019-04-28 17:36 | NUR ---
Pt received from [facility] at this time. 0 s/s of acute distress noted. Pt is aox4 and able to verbalize needs. Dressing to right foot is dry and intact.
--- NOTE | 2019-04-28 19:10 | NUR ---
RECEIVED THE PATIENT IN REPORT.LYEING IN THE BED.NO RESP.DISTRESS NO PAIN VOICED.BED LOCKED AND IN LOWEST POSITION.PHONE AND CALL LIGHT WITHIN REACH.INSTRUCTED TO CALL FOR ASSISTANCE NEEDED.STABLE CONDITION.
--- NOTE | 2019-04-28 20:00 | NUR ---
BLOOD SUGAR 50.PROVIDED APPLLE JUICE.KEEP MONITOR THE PATIENT.
[2019-04-29] VITALS (7 sets, daily range): BP systolic 101–140; BP diastolic 59–74
[2019-04-29] MEDS: LINEZOLID 600 MG/D5W 300ML 300 ML IV SCH ×2 (00:24→12:17)
[2019-04-29] MEDS: HYDROCODONE/APAP 10MG-325MG TAB PO PRN ×4 (00:30→22:26)
--- NOTE | 2019-04-29 00:36 | NUR ---
Hemodialysis completed.3 litre removed.
[2019-04-29] MEDS: TRAMADOL HCL 50 MG TAB PO PRN (02:20)
--- NOTE | 2019-04-29 04:00 | NUR ---
Patient is nauseated.medication given.blood sugar checked and noted 122.medicated with norco 10 mg po.
[2019-04-29] MEDS: ONDANSETRON HCL 4 MG ORAL DISINTEGRATING TAB PO PRN (04:40)
--- NOTE | 2019-04-29 07:00 | NUR ---
BED SIDE SHIFT REPORT GIVEN TO ONCOMING RN.
--- NOTE | 2019-04-29 07:20 | NUR ---
Bedside rounding has been completed and the pt. currently has no complaint.
[2019-04-29] MEDS: INSULIN REGULAR, HUMAN 100 UNIT/1 ML 3ML VIAL SQ SCH ×4 (07:30→21:00)
--- NOTE | 2019-04-29 08:50 | Progress Note ---
DATE: SUBJECTIVE: The patient is a 64-year-old gentleman with a history of end-stage renal disease on dialysis, comes in with the right lower extremity ulcer. The patient is scheduled for possible surgery of toe amputation on Wednesday by Dr. Huan Erickson. The patient is on IV antibiotic and was seen by Dr. Mendoza, currently getting IV antibiotics and schedule for dialysis tomorrow. The patient has dialysis yesterday. In good spirits. No chest pain. No shortness of breath. Pain in the lower extremities controlled with hydrocodone. PHYSICAL EXAMINATION: VITAL SIGNS: Temperature is 98.9, respirations of 18, blood pressure is 107/59, and pulse oximetry of 92%. HEENT: Normocephalic and atraumatic. Pupils are reactive to light and accommodation. CVS: S1 and S2 normal. Regular rate and rhythm. ABDOMEN: Nontender and nondistended. LUNGS: Clear to auscultation. EXTREMITIES: Right lower extremity in bandage. Bilateral lower extremity with erythema, decreased pulses. The patient also has excoriations on bilateral lower extremities. Foot wrapped. IMAGING STUDIES: X-ray shows no osteomyelitis. ASSESSMENT: Mr. Yuri Velazquez with: 1. End-stage renal disease. 2. Right foot diabetic infection foot ulcer. 3. Hypertension. 4. Hyperlipidemia. 5. Uncontrolled diabetes mellitus. 6. Neuropathy. 7. Gangrene of the toe superinfection and cellulitis. PLAN: Again, the patient is scheduled for surgery. Dialysis to be continued by Renal team. The patient is also getting Zyvox and cefepime a gram a day. Cultures are pending. The patient's vascular workup shows obstruction. The patient had a pseudoaneurysm and also a stent put in. As per Cardiology, the patient has had LV dysfunction with a calculated EF of 44%. Continue to monitor the patient. Further recommendation per clinical course. Currently on antibiotic. Labs to be done regularly and further information on clinical course. MD JUNG FloresJ/MODL /[id number]
[2019-04-29] MEDS: UBIDECARENONE 200 MG PO SCH (09:00)
[2019-04-29] MEDS: ASPIRIN 81 MG CHEW TAB PO SCH (09:00)
[2019-04-29] MEDS: SEVELAMER CARBONATE 800 MG TAB PO SCH ×3 (09:07→16:26)
[2019-04-29] MEDS: CEFEPIME 1GM/NS 0.9% 50 ML 50 ML IV SCH (09:07)
[2019-04-29] MEDS: OMEGA 3 POLYUNSAT FATTY ACIDS 1000 MG SOFTGEL PO SCH (09:08)
[2019-04-29] MEDS: AMLODIPINE BESYLATE 10 MG TAB PO SCH (09:08)
[2019-04-29] MEDS: ATORVASTATIN 20 MG TAB PO SCH (09:08)
[2019-04-29] MEDS: CHOLECALCIFEROL 1,000 UNIT TAB PO SCH (09:09)
[2019-04-29] MEDS: METOPROLOL SUCCINATE 25 MG TAB XL PO SCH (09:09)
[2019-04-29] MEDS: NILOTINIB HCL 150 MG PO SCH ×2 (09:15→21:55)
[2019-04-29 09:39] LABS: CALCIUM 8.4 mg/dL (8.4-10.2); CREATININE, SERUM 5.2 mg/dL (0.72-1.25)
--- NOTE | 2019-04-29 18:22 | Progress Note ---
DATE: 04/29/2019 SUBJECTIVE: The patient at bedside, doing somewhat better, having some discomfort to the right lower extremity, has gangrenous changes of foul smell noted to the 1st, 2nd, and 3rd digit, right foot. Positive edema with equinus deformity secondary to drop foot with a tight Achilles tendon, very hard to get past 90 degrees. ASSESSMENT: Gangrene, cellulitis with the equinus deformity. PLAN: We will continue local wound care with diluted wet-to-dry Betadine. Continue IV antibiotics. The patient will be taken for surgical intervention on Wednesday, which will consist of I and D, transmetatarsal amputation with rotational flap closure with Achilles tendon lengthening. The patient understands no guarantees or warranties can be given. The patient may be scheduled for a 2-hour dialysis tomorrow. ELISA Alves/MARCIA /[id number]
[2019-04-29] MEDS ORDERED: GABAPENTIN400 MG PO (22:02)
[2019-04-29] MEDS ORDERED: FLUCONAZOLE100 MG PO (22:04)
[2019-04-30] VITALS (8 sets, daily range): BP systolic 118–152; BP diastolic 67–89
[2019-04-30] MEDS: LINEZOLID 600 MG/D5W 300ML 300 ML IV SCH ×2 (01:00→14:00)
[2019-04-30] MEDS: INSULIN REGULAR, HUMAN 100 UNIT/1 ML 3ML VIAL SQ SCH ×4 (07:30→21:43)
[2019-04-30] MEDS: UBIDECARENONE 200 MG PO SCH (08:35)
[2019-04-30] MEDS: OMEGA 3 POLYUNSAT FATTY ACIDS 1000 MG SOFTGEL PO SCH (08:39)
[2019-04-30] MEDS: ATORVASTATIN 20 MG TAB PO SCH (08:39)
[2019-04-30] MEDS: SEVELAMER CARBONATE 800 MG TAB PO SCH ×3 (08:39→16:29)
[2019-04-30] MEDS: CHOLECALCIFEROL 1,000 UNIT TAB PO SCH (08:40)
[2019-04-30] MEDS: TRAMADOL HCL 50 MG TAB PO PRN ×3 (08:44→21:48)
[2019-04-30] MEDS: ASPIRIN 81 MG CHEW TAB PO SCH (08:46)
[2019-04-30] MEDS: NILOTINIB HCL 150 MG PO SCH ×2 (08:47→21:42)
[2019-04-30 09:17] LABS: ANION GAP 19.3 mmol/L (8-16); CALCIUM 7.8 mg/dL (8.4-10.2); CREATININE, SERUM 6.94 mg/dL (0.72-1.25); POTASSIUM 5.3 mmol/L (3.5-5.1)
--- NOTE | 2019-04-30 09:28 | NUR ---
Paged to notify K5.3. Dr. Person chronic disease epidemiologist. Awaiting call back
[2019-04-30] MEDS: CEFEPIME 1GM/NS 0.9% 50 ML 50 ML IV SCH (10:00)
--- NOTE | 2019-04-30 10:03 | NUR ---
Dr. Person aware of K5.3. No new orders at this time
[2019-04-30] MEDS ORDERED: SODIUM CHLORIDE 0.9% 1000ML 2,000 ML ONE (10:23)
--- NOTE | 2019-04-30 11:24 | Progress Note ---
DATE: SUBJECTIVE: A 64-year-old man with right-sided diabetic foot ulcer and cellulitis, currently on antibiotic. The patient had a good night, was his birthday yesterday. The patient just looked depressed, asked about it, he is worried about his foot and ongoing processes. OBJECTIVE: VITAL SIGNS: Temperature is 97.6, pulse of 78, respirations of 18, blood pressure is 151/89, and pulse oximetry of 93%. HEENT: Normocephalic and atraumatic. Pupils reactive to light and accommodation. CVS: S1 and S2 normal. Regular rate and rhythm. LUNGS: Clear to auscultation bilaterally. ABDOMEN: Nontender and nondistended. EXTREMITIES: Right side in a bandage and also erythema present in bilateral lower extremities with poor flow. ASSESSMENT: Mr. Yuri Velazquez with: 1. End-stage renal disease. 2. Right diabetic foot ulcer. 3. Hypertension. 4. Hyperlipidemia. 5. Peripheral arterial disease. 6. Neuropathy. 7. Gangrene. PLAN: 1. The patient is scheduled for the dialysis today. 2. Schedule for surgery tomorrow. 3. Continue on Zyvox and cefepime. 4. PAD, status post stent. Continue on current medications. The patient is on statins and will need anticoagulation after the surgery. Further recommendation per clinical course. Also, he is on insulin for diabetes coverage. MD RAMILA Flores/MODL /[id number]
[2019-04-30] MEDS: HYDROCODONE/APAP 10MG-325MG TAB PO PRN ×2 (11:35→19:16)
[2019-04-30] MEDS: METOPROLOL SUCCINATE 25 MG TAB XL PO SCH (16:29)
[2019-04-30] MEDS: AMLODIPINE BESYLATE 10 MG TAB PO SCH (16:29)
--- NOTE | 2019-04-30 17:01 | Progress Note ---
DATE: SUBJECTIVE: Mr. Velazquez is doing better. No new complaints, comfortable. REVIEW OF SYSTEMS: Unremarkable. The patient who has right foot diabetic ulcer with osteomyelitis, peripheral vascular disease, end-stage renal disease, on hemodialysis. The patient is on hemodialysis, cleared for surgery tomorrow. He is on Zyvox and cefepime. PHYSICAL EXAMINATION: GENERAL: He is currently alert, oriented, does not seem in acute distress. VITAL SIGNS: Stable, currently afebrile. HEENT: Not icteric. NECK: Supple. CHEST: Clear. HEART: S1, S2. No S3, S4, or murmur. ABDOMEN: Soft. IMPRESSION: 1. Osteomyelitis of right foot. 2. End-stage renal disease with dialysis. Amputation in the morning. Continue IV antibiotic for now. Depending on his progress further recommendations to follow. MD TAMAR Corbin/MODL /[id number]
--- NOTE | 2019-04-30 19:12 | NUR ---
Report given to oncoming nurse of patient's status. No s/s of acute distress noted.
--- NOTE | 2019-04-30 19:30 | NUR ---
RECIEVED BEDSIDE SHIFT REPORT, PATIENT SITTING ON SIDE OF BED WITH EYES CLOSED. MEDICATED FOR PAIN BY PREVIOUS SHIFT. DISCUSSED WITH PATIENT SAFETY AND FALL PRECAUTIONS AND MY CONCERNS FOR HIM SITTING ON THE SIDE OF THE BED AFTER NARCOTIC ADMINISTRATION, ASKED PATIENT TO KEEP ALL EXREAMITIES ON THE BED. PATIENT REFUSED AND STATED "I'M FINE I AM, DO NOT FUSS AT ME".
--- NOTE | 2019-04-30 20:02 | Progress Note ---
DATE: 04/30/2019 SUBJECTIVE: The patient is seen at bedside, getting dialyzed. Denies any history of fever, chills, nausea, or vomiting. OBJECTIVE: VITAL SIGNS: Afebrile, pulse 84, respirations 20, blood pressure 152/82, and O2 saturation 90%. EXTREMITIES: Has gangrenous changes to the forefoot aspect of right foot along the 1st, 2nd, and 3rd toes. Has equinus deformity secondary to foot drop with a tight Achilles tendon right lower extremity. Pedal pulses diminished. Skin temperature warm and cool to touch with some foul smell present to the forefoot aspect right foot. LABS: Noted. Last PT/INR was 1.08 on 04/27. Has a blood glucose of 211. White blood cell count of 16.6 as of 04/27/2019. ASSESSMENT: Gangrene, abscess, cellulitis, possible osteomyelitis with equinus deformity. PLAN: The patient will be taken for surgical intervention tomorrow. The patient is instructed no guarantees can be given. Surgery will consist of an I and D, transmetatarsal amputation, rotational flap closure with Achilles tendon lengthening. INR, PT, and PTT with potassium level be ordered at 5:00 a.m. also with a CBC with diff. The patient is willing to take the risk. Consent will be signed willingly. ELISA Alves/MARCIA /[id number]
--- NOTE | 2019-04-30 22:21 | NUR ---
PATIENT RESTING IN BED, SLIDING SCALE COVERAGE REQUIRED FOR BLOOD SUGAR OF 163. RE-ADDRESSED PLAN FOR NPO AFTER MIDNIGHT AND OFFERED PATIENT A SNACK, PATIENT REFUSED.
[2019-05-01] VITALS (8 sets, daily range): BP systolic 136–157; BP diastolic 68–86
[2019-05-01] MEDS ORDERED: SODIUM CHLORIDE 0.9% 250ML 250 ML ONE (00:23)
[2019-05-01] MEDS: LINEZOLID 600 MG/D5W 300ML 300 ML IV SCH ×2 (00:29→17:10)
[2019-05-01] MEDS: HYDROCODONE/APAP 10MG-325MG TAB PO PRN ×4 (00:31→23:41)
[2019-05-01 04:58] LABS: BASOPHILS # (AUTO) 0.1 (0.0-0.1); BASOPHILS % 0.5 % (0.0-1.0); EOSINOPHILS # (AUTO) 2.4 (0.0-0.4); EOSINOPHILS % 15.8 % (0.0-6.0); HEMATOCRIT 33.1 % (38.2-49.6); HEMOGLOBIN 10.6 g/dL (14.0-18.0); LYMPHOCYTES % 6.8 % (18.0-39.1); MEAN CORPUSCULAR HEMOGLOBIN 32.5 pg (28-32); MEAN CORPUSCULAR VOLUME 101.5 fL (81-99); MONOCYTES % 6.3 % (4.4-11.3); NEUTROPHILS # (AUTO) 10.7 (2.1-6.9); NEUTROPHILS % 69.4 % (38.7-80.0); PLATELET COUNT 149 x10e3/uL (140-360); RED BLOOD COUNT 3.26 x10e6/uL (4.3-5.7); RED CELL DISTRIBUTION WIDTH 20.8 % (11.7-14.4)
[2019-05-01 05:07] LABS: INR 1.08; PROTHROMBIN TIME 14.7 seconds (11.9-14.5)
[2019-05-01] MEDS ORDERED: LIDOCAINE HCL 1% LOCAL INJ 20 ML VIAL ONE (06:24)
[2019-05-01] MEDS ORDERED: MUPIROCIN 2% OINT 22 GM TUBE ONE (06:24)
[2019-05-01] MEDS ORDERED: BUPIVACAINE HCL 0.5% INJ 30 ML VIAL INJ ONE (06:24)
[2019-05-01] MEDS ORDERED: BETAMETHASONE DISODIUM PHOS 6 MG/ML VIAL ONE (06:25)
[2019-05-01 06:31] LABS: ANION GAP 17.2 mmol/L (8-16); CALCIUM 8.5 mg/dL (8.4-10.2); CREATININE, SERUM 6.31 mg/dL (0.72-1.25); POTASSIUM 4.2 mmol/L (3.5-5.1)
--- NOTE | 2019-05-01 06:38 | NUR ---
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
[2019-05-01] MEDS: INSULIN REGULAR, HUMAN 100 UNIT/1 ML 3ML VIAL SQ SCH ×4 (07:30→21:00)
[2019-05-01 07:53] LABS: EOSINOPHILS % (MANUAL) 17 % (0-7); LYMPHOCYTES % (MANUAL) 8 % (19-48); NEUTROPHILS % (MANUAL) 75 % (40-74)
[2019-05-01] MEDS: UBIDECARENONE 200 MG PO SCH (09:00)
[2019-05-01] MEDS: METOPROLOL SUCCINATE 25 MG TAB XL PO SCH (09:00)
[2019-05-01] MEDS: CLOPIDOGREL BISULFATE 75 MG TAB PO SCH (09:00)
[2019-05-01] MEDS: AMLODIPINE BESYLATE 10 MG TAB PO SCH (09:00)
[2019-05-01] MEDS: ASPIRIN 81 MG CHEW TAB PO SCH (09:12)
[2019-05-01] MEDS: CHOLECALCIFEROL 1,000 UNIT TAB PO SCH (09:12)
[2019-05-01] MEDS: OMEGA 3 POLYUNSAT FATTY ACIDS 1000 MG SOFTGEL PO SCH (09:12)
[2019-05-01] MEDS: ATORVASTATIN 20 MG TAB PO SCH (09:12)
[2019-05-01] MEDS: SEVELAMER CARBONATE 800 MG TAB PO SCH ×3 (09:13→18:47)
[2019-05-01] MEDS: CEFEPIME 1GM/NS 0.9% 50 ML 50 ML IV SCH (09:50)
[2019-05-01] MEDS: NILOTINIB HCL 150 MG PO SCH ×2 (10:00→21:10)
--- NOTE | 2019-05-01 12:45 | Diagnostic Imaging Report ---
EXAM: Right upper quadrant abdominal ultrasound INDICATION: Right upper quadrant pain COMPARISON: None. TECHNIQUE: Transverse and longitudinal images of the right upper quadrant abdomen were obtained FINDINGS: Liver: Size: 15.9 cm in the right midclavicular line, normal Appearance: Increased echogenicity, mildly nodular surface contour Mass: No focal masses Gallbladder: The patient was not fasting and the gallbladder is contracted. Gallbladder wall measures 4 mm. Bile Ducts: Intrahepatic Ducts: No dilatation Extrahepatic Ducts: Common bile duct measures 4 mm Pancreas: Visualized portions of the pancreatic head, neck and proximal body are normal. Kidney: The right kidney measures 10.5 cm without evidence of hydronephrosis or stone. Vessels: Aorta: Visualized portions are normal Inferior Vena Cava: Visualized portions are normal Main Portal Vein: 1.3 cm, normal size with hepatopetal flow. Free Fluid: No ascites or pleural effusion IMPRESSION: Hepatic steatosis. Mildly nodular liver surface contour may represent early cirrhosis. Contracted gallbladder. The patient was not fasting. Negative sonographic Moses's sign. Signed by: Brigido Lee MD on 05/01/2019 12:42 PM
[2019-05-01] MEDS ORDERED: SODIUM CHLORIDE 0.9% 1000ML 2,000 ML ONE (13:46)
--- NOTE | 2019-05-01 13:50 | Progress Note ---
DATE: 05/01/2019 SUBJECTIVE: Mostly concerned with chest pain particularly when he takes deep breath. He tells me he has a rib fracture. 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 He does have some nausea. He was scheduled for debridement and followed by flap closure of his right foot that has since been held. He is on IV antibiotics. He denies any dyspnea as such. PHYSICAL EXAMINATION: GENERAL: Appears to be in some pain. VITAL SIGNS: Temperature 97.4, blood pressure 152/86, and pulse 78. EXTREMITIES: Trace edema. Right foot in bandage. CHEST: Clear, perhaps slightly diminished breath sounds at the bases. NEUROLOGIC: Appears to be alert, appropriate. Speech is normal. LABORATORY DATA: Potassium is 4.2, serum CO2 is 28, creatinine is 6.3, BUN 28. No phosphorus is available. ASSESSMENT: 1. End-stage renal disease secondary to hyperparathyroid and underlying chronic myeloid leukemia. 2. Per patient rib fracture. 3. Hypertension. 4. History of diabetes with end-organ damage. 5. Secondary hyperparathyroid. PLAN: 1. Start [facility], hemodialysis today, 4-hour run, 3-4 L fluid removal. 2. Potassium bath, blood flow rate 350 mL/minute. Dialysate flow rate 700 mL/minute. We will follow along. MD JULIAN VivasK/MARCIA /[id number]
--- NOTE | 2019-05-01 19:15 | NUR ---
Patient visited in room during nursing rounds. Patient alert and oriented x3. Pt has no IV access and pt refuse new IV insertion. Dr Cueto aware. Pt also refuses telemetry and Dr. Cueto aware. S/P hemodialysis today per report with access on left upper arm fistula. Pt ambulatory with standyby assist. Call santamaria within reach.
--- NOTE | 2019-05-01 19:32 | Progress Note ---
DATE: SUBJECTIVE: Mr. Welch is a 64-year-old gentleman comes in with cellulitis of the right lower extremity with diabetic foot ulcer, scheduled for surgery today. The patient had some chest pain, therefore, schedule was placed to Wednesday. Currently, no chest pain. No shortness of breath. Complained of right upper quadrant pain. PHYSICAL EXAMINATION: VITAL SIGNS: Temperature is 98.7, pulse of 89, respirations of 19, blood pressure is 157/68, pulse oximeter of 94%. HEENT: Normocephalic and atraumatic. Pupils are reactive to light and accommodation. CVS: S1 and S2 normal. Regular rate and rhythm. ABDOMEN: Nontender and nondistended. EXTREMITIES: No clubbing. Positive for edema, positive for erythema. Positive for bandage. LABORATORY VALUES: White count 15,000, hemoglobin of 10.6, hematocrit of 33.1. BUN 28 and creatinine of 6.31. ASSESSMENT: Mr. Velazquez with osteomyelitis of the right foot. Right foot diabetic ulcer, end-stage renal disease. The patient was supposed to get surgery, we have switched it to Wednesday for incision and drainages and transmetatarsal amputation. We will continue to monitor the patient. Further recommendation per clinical course. The patient is currently on Zyvox. For further information, look in the chart. MD RAMILA Flores/MODL /[id number]
--- NOTE | 2019-05-01 19:32 | Progress Note ---
DATE: 05/01/2019 SUBJECTIVE: The patient is seen at bedside, having some back pain. He is denying any history of fever, chills, nausea, or vomiting. Still has some discomfort to the right lower extremity. The patient had his surgery canceled due to the fact that he related he had chest pain this morning. Upon questioning him, he relates he may have been misunderstood and maybe had related back pain. OBJECTIVE: VITAL SIGNS: Afebrile, pulse rate 81, respirations 21, blood pressure 136/79, and O2 saturation 98%. EXTREMITIES: Ulcerations and status of right foot the same. Has equinus deformity with gangrenous changes and abscess noted to the forefoot aspect of the right foot with some foul smell present. Pedal pulses are diminished. Skin temperature warm and cool to touch. ASSESSMENT: 1. Gangrene, abscess, equinus deformity with possible osteo with grade 4 ulcer down to bone, right great toe. 2. Peripheral arterial disease, gangrene osteo, cellulitis with equinus deformity, right foot. PLAN: 1. We will continue local wound care with diluted wet-to-dry Betadine. Continue IV antibiotics. CBC with diff will be reordered tomorrow. The patient getting dialyzed at this point. Potassium level was noted to be 4.2. 2. The patient will be reschedule for surgical intervention on Wednesday morning following cardiac clearance per Dr. Givens/Dr. Tompkins. Continue local wound care. Continue offloading. Continue IV antibiotics. We will continue to follow. ELISA Alves/MARCIA /[id number]
[2019-05-02] VITALS (7 sets, daily range): BP systolic 132–165; BP diastolic 60–96
--- NOTE | 2019-05-02 05:00 | NUR ---
Removed old dressing to right foot. Gangrenous ulcer wounds noted on right big toe, right 2nd toe, and 3rd tight toe and were cleaned with NS, placed gauze between toes and wrapped with kerlix.
[2019-05-02 06:16] LABS: HEMATOCRIT 32.9 % (38.2-49.6); HEMOGLOBIN 10.4 g/dL (14.0-18.0); MEAN CORPUSCULAR HEMOGLOBIN 31.9 pg (28-32); MEAN CORPUSCULAR HGB CONC 31.6 g/dL (31-35); MEAN CORPUSCULAR VOLUME 100.9 fL (81-99); PLATELET COUNT 185 x10e3/uL (140-360); RED BLOOD COUNT 3.26 x10e6/uL (4.3-5.7); RED CELL DISTRIBUTION WIDTH 20.8 % (11.7-14.4)
[2019-05-02 06:30] LABS: CALCIUM 8.8 mg/dL (8.4-10.2); CREATININE, SERUM 5.33 mg/dL (0.72-1.25)
[2019-05-02] MEDS: HYDROCODONE/APAP 10MG-325MG TAB PO PRN ×3 (07:12→20:14)
--- NOTE | 2019-05-02 07:12 | NUR ---
Notified Dr Cueto when he here for rounds, regarding patient refused IV and Tele monitor. No new orders now, keep monitoring patient, he is not in any distress
[2019-05-02] MEDS: INSULIN REGULAR, HUMAN 100 UNIT/1 ML 3ML VIAL SQ SCH ×4 (07:38→20:20)
[2019-05-02] MEDS: SEVELAMER CARBONATE 800 MG TAB PO SCH ×3 (08:43→17:02)
[2019-05-02] MEDS: ATORVASTATIN 20 MG TAB PO SCH (08:46)
[2019-05-02] MEDS: OMEGA 3 POLYUNSAT FATTY ACIDS 1000 MG SOFTGEL PO SCH (08:46)
[2019-05-02] MEDS: CHOLECALCIFEROL 1,000 UNIT TAB PO SCH (08:46)
[2019-05-02] MEDS: AMLODIPINE BESYLATE 10 MG TAB PO SCH (08:46)
[2019-05-02] MEDS: CLOPIDOGREL BISULFATE 75 MG TAB PO SCH (08:46)
[2019-05-02] MEDS: METOPROLOL SUCCINATE 25 MG TAB XL PO SCH (08:46)
[2019-05-02] MEDS: ASPIRIN 81 MG CHEW TAB PO SCH (08:46)
[2019-05-02] MEDS: CEFEPIME 1GM/NS 0.9% 50 ML 50 ML IV SCH (09:00)
[2019-05-02] MEDS: UBIDECARENONE 200 MG PO SCH (09:00)
[2019-05-02] MEDS: TRAMADOL HCL 50 MG TAB PO PRN ×2 (09:18→21:50)
--- NOTE | 2019-05-02 09:41 | NUR ---
Dr Tompkins here for rounds for cardiac clearance, stated 'Patient is OK to go for surgery'.
[2019-05-02] MEDS: NILOTINIB HCL 150 MG PO SCH ×2 (11:52→21:50)
[2019-05-02] MEDS: LINEZOLID 600 MG/D5W 300ML 300 ML IV SCH ×2 (13:29)
--- NOTE | 2019-05-02 15:06 | Progress Note ---
DATE: 05/02/2019 SUBJECTIVE: The patient at bedside, doing significantly better. Denies any history of fever, chills, nausea, vomiting, or chest pain. Does have a little back pain due to the patient relates a broken rib. OBJECTIVE: VITAL SIGNS: Afebrile, pulse rate 84, respirations 18, blood pressure 160/96, and O2 saturation 95%. EXTREMITIES: Has gangrenous changes with abscess to the forefoot aspect, right foot with equines deformity second drop foot with a tight Achilles tendon. LABORATORY DATA: Labs show white blood cell count dropping to 14.15, hemoglobin 10.4 with a platelet count of 185. Potassium of 4.0. ASSESSMENT: Abscess, grade 4 ulcer osteo with gangrene dorsal aspect right foot with equinus type of deformity with drop foot and tight Achilles tendon with decreased pedal pulses. PLAN: The patient will be kept n.p.o. after midnight tonight. CBC with diff will be reordered. INR, PT, PTT, and the potassium levels will be done tomorrow morning. The proposed surgery plus risks and complications were reviewed in great detail with the patient. The patient was given time to ask questions. All questions were answered. The patient understands no warrantees or guarantees can be given. The proposed surgery will be I and D of abscess, transmetatarsal amputation, rotational flap closure with Achilles tendon lengthening. ELISA Alves/MARCIA /[id number]
[2019-05-02] MEDS: HYDROMORPHONE 1MG/1ML INJ IV PRN ×2 (15:58→23:53)
[2019-05-02 16:14] LABS: BASOPHILS # (AUTO) 0.1 (0.0-0.1); BASOPHILS % 0.7 % (0.0-1.0); EOSINOPHILS # (AUTO) 1.1 (0.0-0.4); EOSINOPHILS % 8.1 % (0.0-6.0); HEMATOCRIT 31.5 % (38.2-49.6); HEMOGLOBIN 10.4 g/dL (14.0-18.0); LYMPHOCYTES % 7.4 % (18.0-39.1); MEAN CORPUSCULAR HEMOGLOBIN 32.7 pg (28-32); MEAN CORPUSCULAR VOLUME 99.1 fL (81-99); MONOCYTES % 7.1 % (4.4-11.3); NEUTROPHILS # (AUTO) 10.5 (2.1-6.9); NEUTROPHILS % 75.5 % (38.7-80.0); PLATELET COUNT 185 x10e3/uL (140-360); RED BLOOD COUNT 3.18 x10e6/uL (4.3-5.7); RED CELL DISTRIBUTION WIDTH 20.4 % (11.7-14.4)
--- NOTE | 2019-05-02 17:37 | Consultation ---
DATE OF CONSULTATION: Cardiology Consultation REASON FOR CONSULTATION: Chest pain. 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 He is scheduled to undergo a transmetatarsal amputation. Per nursing staff, he reported chest pain. Upon talking with the patient, the patient states that he has right flank pain and back discomfort. The patient states that he fell and hit his back on a coffee table at home. He also reports that he has mild episodes of confusion and he states that he likely said chest pain when he really meant back and flank pain. Currently for me, he is denying any chest pain or chest discomfort. Otherwise, feeling well. REVIEW OF SYSTEMS: A 12-point review of system was conducted, is negative except as stated above in the HPI. PAST FAMILY HISTORY: Noncontributory. SOCIAL HISTORY: No illicit drug, alcohol, or tobacco use. ALLERGIES: CLINDAMYCIN, FENTANYL. MEDICATIONS: See medication reconciliation form. PHYSICAL EXAMINATION: VITAL SIGNS: Temperature is 98.2, heart rate is 98, respirations are 20, blood pressure is 135/82, oxygen saturation 96% on room air. GENERAL: Chronically ill-appearing man, seated at bedside, in no apparent distress. Alert and oriented x3. HEAD: Normocephalic, atraumatic. Eyes, the extraocular muscles are intact. Conjunctivae are clear. NECK: No jugular venous distention. No bruits. CARDIOVASCULAR: Regular rate and rhythm. No murmurs. LUNGS: Diminished breath sounds at bases. ABDOMEN: Soft, nontender, nondistended. EXTREMITIES: Right foot wound is dressed and wrapped. NEUROLOGIC: No focal deficits noted. LABORATORY DATA: Reviewed. Troponin is negative x2. A 12-lead electrocardiogram showed normal sinus rhythm with anterior infarct, age undetermined, which is stable from his previous electrocardiogram. Coronary angiography recently showed moderate coronary artery disease and no intervention was deemed necessary. Echocardiogram recently showed stable left ventricular ejection fraction of 40% to 45%. IMPRESSION: 1. Musculoskeletal pain. 2. Coronary artery disease. 3. Chronic systolic congestive heart failure. 4. Hypertension. 5. Hyperlipidemia. 6. Right diabetic foot wound with osteomyelitis. RECOMMENDATIONS: This patient may proceed with scheduled surgery. He ruled out for acute myocardial infarction. He has had stable cardiac testing and no intervention is required at this point in time. He may proceed with [id number] risk. DO MARCUS Santa/MARCIA /[id number]
--- NOTE | 2019-05-02 19:15 | NUR ---
Patient visited in room during nursing rounds. Patient alert and oriented x3. Pt scheduled for surgery tomorrow (05/03/19) on right foot and hemodialysis after surgery.Pt ambulatory with standy-by assist. Call santamaria within reach.
--- NOTE | 2019-05-02 21:54 | Progress Note ---
DATE: SUBJECTIVE: The patient is here for cellulitis and osteomyelitis of the right foot. The patient complains of back pain today, scale of 9/10. The patient received IV Dilaudid. The patient is feeling better now, scheduled for surgery for transmetatarsal amputation tomorrow. Currently, otherwise no complaints. The patient has some depression, voiced reasoning for antidepressant, but the patient refused to have one at this time. OBJECTIVE: VITAL SIGNS: Temperature is 97.9, pulse of 71, respirations of 21, blood pressure is 132/71, pulse oximetry of 96% on room air. HEENT: Normocephalic and atraumatic. Pupils reactive. CVS: S1 and S2 normal. Regular rate and rhythm. ABDOMEN: Protuberant. EXTREMITIES: Bandage to right lower extremity. LABORATORY VALUES: White count is 13,000, hemoglobin 10.4, hematocrit 31.5. Chemistries show sodium 138, potassium 4.0, BUN of 25, creatinine of 5.33. ASSESSMENT: 1. Mr. Yuri Velazquez with abscess, ulceration and gangrene of the right foot with osteomyelitis. The patient with a foot drop. Plan surgery tomorrow. 2. End-stage renal disease. Continue dialysis. 3. Peripheral artery disease. 4. Coronary artery disease. 5. Hypertension. 6. Hyperlipidemia. PLAN: Continue medications. Scheduled for surgery tomorrow. Proceed with surgery, the patient is at moderate risk for surgery. MD RAMILA Flores/MODL /[id number]
[2019-05-02] MEDS ORDERED: SODIUM CHLORIDE 0.9% 250ML 250 ML ONE (23:54)
[2019-05-03] VITALS (8 sets, daily range): BP systolic 127–175; BP diastolic 68–89
--- NOTE | 2019-05-03 06:30 | NUR ---
Changed dressing on right foot with gauze and kerlix. Wound has funky smell and very gangrenous. Pt scheduled for surgery this morning.
[2019-05-03 06:40] LABS: INR 1.1; PROTHROMBIN TIME 14.9 seconds (11.9-14.5)
[2019-05-03 06:54] LABS: ANION GAP 20.2 mmol/L (8-16); CALCIUM 8.6 mg/dL (8.4-10.2); CREATININE, SERUM 7.08 mg/dL (0.72-1.25); POTASSIUM 4.2 mmol/L (3.5-5.1)
[2019-05-03] MEDS ORDERED: BUPIVACAINE HCL 0.5% INJ 30 ML VIAL INJ ONE (07:03)
[2019-05-03] MEDS ORDERED: LIDOCAINE HCL 1% LOCAL INJ 20 ML VIAL ONE (07:03)
[2019-05-03] MEDS ORDERED: BETAMETHASONE DISODIUM PHOS 6 MG/ML VIAL ONE (07:03)
[2019-05-03] MEDS ORDERED: SODIUM CHLORIDE 0.9% 500ML 500 ML ONE (07:05)
[2019-05-03] MEDS ORDERED: BACITRACIN ZINC 15 GM OINT ONE (07:15)
[2019-05-03] MEDS ORDERED: MUPIROCIN 2% OINT 22 GM TUBE ONE (07:15)
[2019-05-03] MEDS ORDERED: BACITRACIN 50,000 UNIT VIAL ONE (07:15)
[2019-05-03] MEDS: INSULIN REGULAR, HUMAN 100 UNIT/1 ML 3ML VIAL SQ SCH ×4 (07:30→21:00)
[2019-05-03] MEDS: SEVELAMER CARBONATE 800 MG TAB PO SCH ×3 (08:00→16:46)
[2019-05-03] MEDS ORDERED: CEFEPIME 1GM/NS 0.9% 50 ML 50 ML IV ONE (08:42)
[2019-05-03] MEDS: CEFEPIME 1GM/NS 0.9% 50 ML 50 ML IV SCH (08:46)
[2019-05-03] MEDS: CLOPIDOGREL BISULFATE 75 MG TAB PO SCH (09:00)
[2019-05-03] MEDS: UBIDECARENONE 200 MG PO SCH (09:00)
--- NOTE | 2019-05-03 09:26 | Diagnostic Imaging Report ---
EXAM: FOOT RIGHT AP LAT DATE: 05/03/2019 8:19 AM INDICATION: Postop COMPARISON: 04/26/2019 FINDINGS/IMPRESSION: There are expected postsurgical changes from interval transmetatarsal amputation of all 5 digits within the right foot. There is no evidence for acute fracture or dislocation. There is diffuse soft tissue edema without evidence for radiopaque foreign body. Signed by: Dr. Regan Rodriguez MD on 05/03/2019 9:23 AM
[2019-05-03] MEDS: ASPIRIN 81 MG CHEW TAB PO SCH (09:40)
[2019-05-03] MEDS: ATORVASTATIN 20 MG TAB PO SCH (09:40)
[2019-05-03] MEDS: CHOLECALCIFEROL 1,000 UNIT TAB PO SCH (09:40)
[2019-05-03] MEDS: OMEGA 3 POLYUNSAT FATTY ACIDS 1000 MG SOFTGEL PO SCH (09:41)
[2019-05-03] MEDS: METOPROLOL SUCCINATE 25 MG TAB XL PO SCH (09:41)
[2019-05-03] MEDS: AMLODIPINE BESYLATE 10 MG TAB PO SCH (09:41)
--- NOTE | 2019-05-03 09:52 | Progress Note ---
DATE: SUBJECTIVE: The patient is a 64-year-old gentleman with right foot cellulitis, abscess, osteomyelitis and infection. The patient is scheduled for a transmetatarsal ectomy today with Dr. Erickson. Currently pain control is obtained by Dilaudid and [place]. No chest pain. No shortness of breath at this time. OBJECTIVE: VITAL SIGNS: Temperature is 97.3, pulse of 90, respirations of 18, blood pressure is 175/85. HEENT: Normocephalic and atraumatic. Pupils are reactive to light and accommodation. CVS: S1 and S2 normal. Regular rate and rhythm. ABDOMEN: Nontender, nondistended. EXTREMITIES: Right lower extremity foot great toe with gangrene. Decreased pulses. LAB[place]ORY [place]: [place] [address], hemoglobin of 10.4, hematocrit 31.5. Chemistries; sodium 137, potassium 4.2, BUN of 44, creatinine of 7.08. ASSESSMENT: Mr. Yuri Velazquez with: 1. Acute osteomyelitis of the right foot, scheduled for transmetatarsal ectomy on antibiotics. 2. End-stage renal disease. 3. Hypertension. 4. Hyperlipidemia. 5. Peripheral arterial disease, status post stent. 6. Obesity. 7. depression. PLAN: Scheduled for surgery today. Continue with ongoing treatment. Consultants on board. Dialysis tomorrow. MD RAMILA Flores/CRISTHIANL /[id number]
[2019-05-03] MEDS ORDERED: SODIUM CHLORIDE 0.9% 1000ML 2,000 ML ONE (10:29)
[2019-05-03] MEDS: NILOTINIB HCL 150 MG PO SCH ×2 (10:59→21:10)
[2019-05-03] MEDS ORDERED: EPOETIN ALFA-EPBX 10,000 UNIT/ML VIAL SC ONE (12:00)
[2019-05-03] MEDS: LINEZOLID 600 MG/D5W 300ML 300 ML IV SCH ×2 (12:00)
--- NOTE | 2019-05-03 13:42 | Progress Note ---
DATE: 05/03/2019 SUBJECTIVE: He is due for dialysis today. He is status post transmetatarsal amputation of the right foot with Achilles tendon lengthening. He denies any dyspnea. He was found to have osteomyelitis of the right foot additionally. PHYSICAL EXAMINATION: GENERAL: Sitting up, no distress. He appears to recover from anesthesia. Alert, appropriate. VITAL SIGNS: Temperature 97.3, pulse 82, blood pressure 140/79. CHEST: Clear. EXTREMITIES: Trace edema on the right, none on the left. ABDOMEN: Benign. NEURO: Appears to be alert, appropriate. LABORATORY DATA: Last hemoglobin was 10.4. Last potassium was 4.2. ASSESSMENT: 1. End-stage renal disease, hypertension, underlying diabetes, history of chronic myeloid leukemia. 2. Peripheral vascular disease with repair of right femoral artery aneurysm and covered stent placement. 3. Gangrene, which did not get better with supportive care, now requiring transmetatarsal amputation. 4. Secondary hyperparathyroidism, history of poorly controlled phosphorus in the past. PLAN: 1. Hemodialysis today. 2. 4 hour run. 3. F160 filter. 4. Blood flow rate 350 mL/minute. 5. Dialysate flow rate 400 mL/minute. 6. Try to remove 3-4 L of fluid with a 2k bath 7. Keep salt and water restricted. 8. One dose of DUNG. MD JULIAN VivasK/CRISTHIANL /[id number] MTDD
--- NOTE | 2019-05-03 13:58 | NUR ---
Nutrition Screen Note RD Recommendation for Physician: -Continue current diet per MD. -Consider adding 1800 ADA diet pending glucose trends. Plan of Care: RD following, monitoring for tolerance and adequacy. Education provided. Nutrition reason for involvement: (LOS) Primary Diagnose(s): PAD PMH: End-stage renal disease secondary to type 2 diabetes, and dialysis Ht: 66 in Wt: 204 lb BMI: 32.9 kg/m2 IBW: [address] Assessment: (05/03) 64 YOM admitted for PAD with PMH listed above. The pt was seen resting in bed, he just came back from his surgery. Pt reported that he has a good appetite but does not always like the restrictions here. Educated pt on the renal diet and provided him with educational handout. He verbalized understanding. The pt reported no V/C/D/chewing or swallowing issues as well as any food allergies. The pt did report some nausea. Chart reviewed. Labs and meds reviewed. Spoke about pt in rounds- pt will probably receive dialysis today. Pt has been consuming 25-100% of his meals per FS. POC GM: 127-143. Will continue to monitor. Current Diet: renal Malnutrition Evaluation (05/03) The patient does not meet criteria for a specified degree of malnutrition at this time. Will re-evaluate at follow-up as appropriate. Diet Education Needs Assessment: Diet education indicated, pt accepted. Diet Adequacy: (Meeting calorie needs, Meeting protein needs Learner(s): pt Barriers: none Cultural/Language Modifications: none Readiness: acceptance Method: discussion, handout Topics: Renal diet on dialysis Understanding/Compliance: verbalized understanding, anticipate poor to fair compliance Nutrition Care Level: low Signed: Liliya Mcdaniel RD, LD
[2019-05-03] MEDS: HYDROCODONE/APAP 10MG-325MG TAB PO PRN ×2 (15:05→19:36)
--- NOTE | 2019-05-03 15:47 | Operative Report ---
DATE OF PROCEDURE: 05/03/2019 SURGEON: Huan Erickson DPM PREOPERATIVE DIAGNOSES: 1. Grade 4 ulcer with osteomyelitis and gangrene, right foot. 2. Equinus deformity, right foot. 3. Osteomyelitis, right foot. 4. Abscess, right foot. POSTOPERATIVE DIAGNOSES: Confirmed. OPERATIVE PROCEDURES: 1. I and D of abscess down to bone. 2. Achilles tendon lengthening, right foot. 3. Transmetatarsal amputation, right foot. 4. Rotational flap closure, right foot. 5. Intraoperative use of fluoroscopy. 6. Application of posterior splint. ANESTHESIA: General. HEMOSTASIS: Pneumatic calf tourniquet at 250 mmHg. PROCEDURE IN DETAIL: The patient was taken into the operating room, placed on the operating room table in supine position. Following induction of general anesthesia by the anesthesiologist, Webril wraps were placed on the patient's right calf followed by application of right calf tourniquet. The right lower extremity was then prepped and draped in the usual aseptic manner following procedures then performed: Procedure #1: I and D of abscess, right foot. Attention was directed to the distal aspect of the 1st metatarsophalangeal joint. A 3 cm linear incision was performed down to bone. Abscess was encountered and cultured for aerobic and anaerobic growth. Severe foul smell and drainage noted. Procedure #2: Achilles tendon lengthening, right foot. Attention was then directed to the posterior aspect of the right ankle and right leg, where three stab incisions were performed 2 cm from the insertion of the Achilles tendon into the posterior aspect of the calcaneus and 2 cm apart. The most distal and most proximal stab incision was entered midline through the tendon and exited laterally. A stab incision was then inserted into the 4 cm dank and entered midline through the tendon and exited medially. At this point, the foot was then dorsiflexed at 90 degrees and the Achilles tendon was felt to lengthen. Procedure #3: Transmetatarsal amputation, right foot. Attention was then redirected back to the dorsal aspect of the right foot where a curvilinear incision was performed overlying the dorsal aspect of metatarsals 1 through 5. Incision was deepened down to the bone utilizing a periosteal elevator. All soft tissue attachments were released from the metatarsal shaft. Preserving the metatarsal parabola, the forefoot was then disarticulated utilizing an oscillating saw. Secondary to the necrosis. The forefoot was then sent for pathological analysis. Procedure #4: Rotational flap closure. The plantar flap had to be modified to allow for proper closure with minimal skin tension. The incision was then deepened dorsal medially and plantar laterally to create a plantar flap to allow for proper closure with minimal skin tension. The flap was then dorsally displaced and after properly and copiously flushing the area with saline and at this point, the calf tourniquet was then released and all ligators or pumpers were ligated or bovied as necessary. The plantar flap was then reapproximated utilizing 3-0 Vicryl and 3-0 nylon for subcutaneous tissue and skin respectively. Procedure #5: Intraoperative use of fluoroscopy was used to make sure proper parabola was preserved. Closure was obtained as described above utilizing 3-0 Vicryl and 3-0 nylon. Procedure #6: After properly anesthetizing the foot and utilizing a sterile dressing, a properly placed posterior splint was applied keeping the foot at 90 degrees with respect to the leg to try for any type of postop complications and allow for preservation of the Achilles tendon lengthening. The patient was then transferred from the OR to recovery room with vital signs stable and neurovascular status intact. No intraoperative complications were encountered. Blood loss from the surgery was minimal. The patient is to remain in the hospital for a couple of days for IV antibiotics and patient will remain nonweightbearing with the crutches for at least 2-4 weeks minimal. ELISA Alves/CRISTHIANL /[id number]
[2019-05-03] MEDS: HYDROMORPHONE 1MG/1ML INJ IV PRN (18:03)
[2019-05-03] MEDS ORDERED: ONDANSETRON HCL INJ 2MG/ML 2ML 2 MG/ML VIAL ONE (18:41)
[2019-05-03] MEDS ORDERED: PROPOFOL IV EMULSION 10 MG/ML 20 ML VIAL ONE (18:41)
[2019-05-03] MEDS ORDERED: LIDOCAINE HCL 2% LOCAL INJ 5 ML SDV VIAL INJ ONE (18:41)
[2019-05-03] MEDS ORDERED: SEVOFLURANE INHAL SOLN 250 ML PEN BTL ONE (18:41)
--- NOTE | 2019-05-03 19:15 | NUR ---
Patient visited in room during nursing rounds. Patient alert and oriented x3. S/P total amputation of all right toes and achilles lengthening. Right leg to foot covered with surgical dressing and katie wrap bandage appearing clean and dry. Pt also had hemodialysis today. Pt on bedrest at this time with both legs elevated (with pillow) especially the right leg. Call santamaria within reach.
[2019-05-03] MEDS ORDERED: MIDAZOLAM HCL 2 MG/2 ML VIAL ONE (20:07)
[2019-05-04] VITALS (8 sets, daily range): BP systolic 121–169; BP diastolic 65–80
[2019-05-04] MEDS: HYDROMORPHONE 1MG/1ML INJ IV PRN ×4 (06:07→18:40)
[2019-05-04 06:56] LABS: CALCIUM 8.6 mg/dL (8.4-10.2); CREATININE, SERUM 5.16 mg/dL (0.72-1.25)
[2019-05-04] MEDS: INSULIN REGULAR, HUMAN 100 UNIT/1 ML 3ML VIAL SQ SCH ×4 (07:30→21:37)
--- NOTE | 2019-05-04 07:35 | NUR ---
PATIENT IN BED WITH HEAD OF BED ELEVATED, NO DISTRESS NOTED. DRESSING INTACT TO RIGHT FOOT. BED IN LOWER POSITION, CALL LIGHT AT REACH.
[2019-05-04] MEDS: SEVELAMER CARBONATE 800 MG TAB PO SCH ×3 (08:45→17:21)
[2019-05-04] MEDS: UBIDECARENONE 200 MG PO SCH (09:00)
[2019-05-04 09:04] LABS: BASOPHILS # (AUTO) 0.1 (0.0-0.1); EOSINOPHILS # (AUTO) 1.4 (0.0-0.4); EOSINOPHILS % 10.1 % (0.0-6.0); HEMATOCRIT 34.3 % (38.2-49.6); HEMOGLOBIN 10.8 g/dL (14.0-18.0); LYMPHOCYTES # (AUTO) 1.2 (1.0-3.2); LYMPHOCYTES % 9.2 % (18.0-39.1); MEAN CORPUSCULAR HEMOGLOBIN 32.1 pg (28-32); MEAN CORPUSCULAR HGB CONC 31.5 g/dL (31-35); MEAN CORPUSCULAR VOLUME 102.1 fL (81-99); MONOCYTES # (AUTO) 1.1 (0.2-0.8); NEUTROPHILS # (AUTO) 9.5 (2.1-6.9); NEUTROPHILS % 70.6 % (38.7-80.0); PLATELET COUNT 217 x10e3/uL (140-360); RED BLOOD COUNT 3.36 x10e6/uL (4.3-5.7); RED CELL DISTRIBUTION WIDTH 20.6 % (11.7-14.4)
[2019-05-04] MEDS: CEFEPIME 1GM/NS 0.9% 50 ML 50 ML IV SCH (09:35)
[2019-05-04] MEDS: ASPIRIN 81 MG CHEW TAB PO SCH (09:36)
[2019-05-04] MEDS: ATORVASTATIN 20 MG TAB PO SCH (09:37)
[2019-05-04] MEDS: CHOLECALCIFEROL 1,000 UNIT TAB PO SCH (09:37)
[2019-05-04] MEDS: AMLODIPINE BESYLATE 10 MG TAB PO SCH (09:37)
[2019-05-04] MEDS: CLOPIDOGREL BISULFATE 75 MG TAB PO SCH (09:37)
[2019-05-04] MEDS: OMEGA 3 POLYUNSAT FATTY ACIDS 1000 MG SOFTGEL PO SCH (09:37)
[2019-05-04] MEDS: METOPROLOL SUCCINATE 25 MG TAB XL PO SCH (09:38)
[2019-05-04] MEDS: HYDROCODONE/APAP 10MG-325MG TAB PO PRN ×3 (09:40→21:55)
[2019-05-04] MEDS: NILOTINIB HCL 150 MG PO SCH ×2 (10:24→22:00)
--- NOTE | 2019-05-04 10:54 | NUR ---
PATIENT ASSISTED TO THE RESTROOM AND BACK TO BED. REFUSED TELEMETRY BOX AFTER 2 ATTEMPTS. IN BED WITH CALL LIGHT AT REACH.
[2019-05-04] MEDS: LINEZOLID 600 MG/D5W 300ML 300 ML IV SCH ×2 (12:20)
--- NOTE | 2019-05-04 15:13 | NUR ---
MD IN TO SEE PATIENT. NO NEW ORDER RECEIVED.
--- NOTE | 2019-05-04 16:44 | Progress Note ---
DATE: 05/04/2019 SUBJECTIVE: The patient is seen at bedside, doing significantly better. Denies any history of fever, chills, nausea, or vomiting. OBJECTIVE: VITAL SIGNS: Afebrile. Vital signs are stable. GENERAL: Dressing dry and intact to the right lower extremity. ASSESSMENT: Status post right foot surgery multiple procedures including I and D of abscess, transmetatarsal amputation, Achilles tendon lengthening with rotational flap closure. PLAN: CBC with diff will be ordered today. The patient's white blood cell becomes normal. Okay to be discharged when okay with Dr. Henry. ELISA Alves/MARCIA /[id number]
--- NOTE | 2019-05-04 17:20 | Progress Note ---
DATE: SUBJECTIVE: Mr. Velazquez is doing well. No new complaints. REVIEW OF SYSTEMS: Otherwise unremarkable. He did underwent a TMA and the culture showing gram-positive cocci, gram-negative bacilli. We do not have all cultures results yet. His white count is come down to 13.4 with a hemoglobin of 10. Sodium 135, potassium 4.0. His review of systems otherwise unremarkable. PHYSICAL EXAMINATION: GENERAL: He is currently alert, oriented, does not seem to be in acute distress. VITAL SIGNS: Stable. Currently afebrile. HEENT: Not icteric. NECK: Supple. CHEST: Clear bilateral. HEART: S1, S2. No S3, S4, or murmur. ABDOMEN: Soft. Bowel sounds present. No tenderness. EXTREMITIES: No edema. IMPRESSION: 1. Osteomyelitis status post TMA. Can discharge home with doxycycline 100 mg p.o. b.i.d. for 2 weeks, Cipro 250 mg p.o. b.i.d. for 2 weeks plus local care. 2. End-stage renal disease, on hemodialysis. 3. Discussed with the medical team. Other medical problem as above stable. MD TAMAR Corbin/MARCIA /[id number]
--- NOTE | 2019-05-04 18:05 | Progress Note ---
DATE: SUBJECTIVE: A 64-year-old man, status post podiatric surgery, transmetatarsalectomy. The patient is doing well. No complaints. Pain controlled, in good spirits. Talking about discharge and also wanting home health aide and home health at home. Otherwise, no complaints. OBJECTIVE: VITAL SIGNS: Temperature is 96.4, pulse of 69, respirations of 16, and blood pressure is 131/73. HEENT: Normocephalic and atraumatic. Pupils are reactive to light and accommodation. CVS: S1 and S2 normal. Regular rate and rhythm. ABDOMEN: Nontender and nondistended. EXTREMITIES: Right lower extremity in bandage, status post surgery. MICROBIOLOGY: Gram-negative rods and Streptococcus species isolated in wound. LABORATORY VALUES: White count is 13,000, hemoglobin of 10.8, and hematocrit of 34.3. Chemistries; potassium 4 and sodium 135. ASSESSMENT: 1. Acute osteomyelitis, status post transmetatarsalectomy, on antibiotics. 2. End-stage renal disease. 3. Hypertension. 4. Hyperlipidemia. 5. Peripheral arterial disease. 6. Obesity. 7. Depression. PLAN: Continue to monitor the patient. Physical therapy, wound care, antibiotics, and dialysis as per Renal team. Further recommendation per clinical course. MD RAMILA Flores/MODL /[id number]
--- NOTE | 2019-05-04 19:25 | NUR ---
Patient states he wants to use the rest room, beside commode arranged for patient, patient stated he will not use the s word, patient was also asked if he needs help to go to the rest room he got mad and stated get out of my room, patient refused bed alarm, tank shop supervisor was made aware. Patient is currently sitting on his bed. patient educated on fall risk and also his Doctor has placed him on non weight bearing on affected leg(R).
--- NOTE | 2019-05-04 21:46 | NUR ---
patient refusing tele, Dr. Cat office called, waiting for call back, acid supervisor made aware.
[2019-05-05] VITALS (8 sets, daily range): BP systolic 120–161; BP diastolic 59–78
[2019-05-05] MEDS: HYDROMORPHONE 1MG/1ML INJ IV PRN ×5 (00:12→18:57)
--- NOTE | 2019-05-05 01:43 | NUR ---
Patient trying to get out of bed to bathroom, informed of the availability of beside commode and urinal, patient refused, also refusing cosmetic sales assistant to rest room, supervisor net making informed.
[2019-05-05] MEDS: HYDROCODONE/APAP 10MG-325MG TAB PO PRN ×4 (04:10→21:50)
--- NOTE | 2019-05-05 06:55 | NUR ---
patient endorsed to next shift for continuity of care.
--- NOTE | 2019-05-05 07:10 | NUR ---
PATIENT IN STABLE CONDITION WITH NO S/S OF RESPIRATORY DISTRESS PATIENT REFUSED BED ALARM. DRESSING TO RIGHT FOOT IS DRY AND INTACT. NON-WEIGHT BEARING TO RIGHT FOOT. CALL LIGHT IS WITHIN REACH, PATIENT INSTRUCTED TO CALL FOR ASSISTANCE NEEDED.
[2019-05-05] MEDS: INSULIN REGULAR, HUMAN 100 UNIT/1 ML 3ML VIAL SQ SCH ×4 (07:30→21:50)
[2019-05-05] MEDS: CLOPIDOGREL BISULFATE 75 MG TAB PO SCH (08:19)
[2019-05-05] MEDS: CHOLECALCIFEROL 1,000 UNIT TAB PO SCH (08:19)
[2019-05-05] MEDS: UBIDECARENONE 200 MG PO SCH (08:20)
[2019-05-05] MEDS: ASPIRIN 81 MG CHEW TAB PO SCH (08:20)
[2019-05-05] MEDS: ATORVASTATIN 20 MG TAB PO SCH (08:20)
[2019-05-05] MEDS: SEVELAMER CARBONATE 800 MG TAB PO SCH ×3 (08:20→16:51)
[2019-05-05] MEDS: OMEGA 3 POLYUNSAT FATTY ACIDS 1000 MG SOFTGEL PO SCH (08:20)
[2019-05-05] MEDS: CEFEPIME 1GM/NS 0.9% 50 ML 50 ML IV SCH (08:25)
[2019-05-05] MEDS ORDERED: SODIUM CHLORIDE 0.9% 1000ML 1,000 ML ONE (08:54)
[2019-05-05] MEDS: NILOTINIB HCL 150 MG PO SCH ×2 (10:00→21:50)
[2019-05-05 10:11] LABS: ANION GAP 19.7 mmol/L (8-16); CALCIUM 8.3 mg/dL (8.4-10.2); CREATININE, SERUM 6.25 mg/dL (0.72-1.25); POTASSIUM 3.7 mmol/L (3.5-5.1)
[2019-05-05] MEDS: LINEZOLID 600 MG/D5W 300ML 300 ML IV SCH ×2 (12:33)
--- NOTE | 2019-05-05 14:00 | Progress Note ---
DATE: 05/05/2019 SUBJECTIVE: Seen on dialysis. He is in quite a bit of pain. Potassium has been adequate. PHYSICAL EXAMINATION: GENERAL: Lying in bed, appears to be in some pain. VITAL SIGNS: Temperature is 98.6, blood pressure 140/69, O2 saturation 97%, pulse 72, regular. EXTREMITIES: Trace edema on the right. Evidence of amputation with bandage on the right foot. No edema on the left. CHEST: Clear, but appears to be splinting on the left, presumably from his old rib fracture. CARDIAC: Normal heart tones. Rhythm sounds regular. NEUROLOGIC: Alert and appropriate. Speech is normal. LABORATORY DATA: Hemoglobin is 10.8 yesterday, potassium 3.7, serum CO2 of 24. ASSESSMENT: 1. End-stage renal disease. 2. Chronic myeloid leukemia. 3. Peripheral vascular disease. 4. Type 2 diabetes. 5. End-organ damage. 6. Hypertension. PLAN: 1. Original plan was for 3-1/2 hours of dialysis. We will cut short if he is unable to tolerate the pain. Recheck a potassium on Wednesday. Plan was for 3-1/2 hours. 2. F160 filter. 3. Blood flow rate 400 mL/minute. 4. Dialysate flow rate 800 mL/minute. 5. 3 to 4 L fluid removal. 6. Two potassium baths. MD JULIAN VivasK/MODL /[id number]
--- NOTE | 2019-05-05 14:54 | NUR ---
ORDERS RECEIVED FOR HOME WOUND CARE. CM MET W THE PT AT THE BEDSIDE. PHYSICAL THERAPY ASKED THAT THE PT RECEIVE HOME PT AND NEEDS A WALKER AND WC. STATES THEY WILL INFORM [facility]. DISCUSSED HOME WOUND CARE ORDER WRITTEN BY DR. MELGAR. PT STATES HE WOULD LIKE TO USE THE AGENCY THE RECOMMENDED. CHOICE LETTER WAS SIGNED FOR [facility] @ OFF: [phone] / FAX: [phone]; CONTACT WENDY @ [phone]. PT ALSO SIGNED CHOICE FOR DME. STATES HE ONLY HAS CRUTCHES AND HAS NOT NEEDED DME IN THE PAST.
[2019-05-05] MEDS ORDERED: SODIUM CHLORIDE 0.9% 1000ML 2,000 ML IV PRN (15:30)
[2019-05-05] MEDS ORDERED: ALBUMIN 25% 12.5GM 0.25 GM/ML BTL IV PRN (15:30)
[2019-05-05] MEDS ORDERED: SODIUM CHLORIDE 0.9% 250ML 500 ML IV PRN (15:30)
--- NOTE | 2019-05-05 15:31 | Progress Note ---
DATE: 05/05/2019 SUBJECTIVE: The patient is seen at bedside, doing significantly better. Denies any history of fever, chills, nausea, or vomiting. OBJECTIVE: VITAL SIGNS: Afebrile, pulse rate 68, respirations 20, blood pressure 128/66, O2 saturation 94%. Dressing dry and intact. ASSESSMENT: Status post two days right foot surgery, multiple procedures including I and D, rotational flap closure, Achilles tendon lengthening with transmetatarsal amputation. PLAN: After dialysis if okay with Dr. Cueto, the patient can go home. We will continue wound care with [facility]. The patient to follow up within one week in the office. Strict nonweightbearing. ELISA Alves/CRISTHIANL /[id number]
[2019-05-05] MEDS: METOPROLOL SUCCINATE 25 MG TAB XL PO SCH (16:51)
[2019-05-05] MEDS: AMLODIPINE BESYLATE 10 MG TAB PO SCH (16:51)
--- NOTE | 2019-05-05 18:57 | NUR ---
PATIENT IN STABLE CONDITION WITH NO S/S OF RESPIRATORY DISTRESS. DILAUDID ADMINISTERED TO PATIENT FOR GENERALIZE PAIN 10/15. PATIENT REFUSED BED ALARM. DRESSING TO RIGHT FOOT REMAINS INTACT, CLEAN, AND DRY. CALL LIGHT IS WITHIN REACH, PATIENT INSTRUCTED TO CALL FOR ASSISTANCE NEEDED. BEDSIDE SHIFT REPORT GIVEN TO ONCOMING NURSE.
--- NOTE | 2019-05-05 19:52 | Progress Note ---
DATE: SUBJECTIVE: This patient came in with acute osteomyelitis, gangrene of the foot. The patient is status post surgery with Podiatry. Pain is controlled. No chest pain. No shortness of breath. No nausea, vomiting, or diarrhea. Medications reviewed. The patient is on hydrocodone, cefepime, and Zyvox. Also had dialysis today. Currently, no chest pain. No shortness of breath. No nausea, vomiting, or diarrhea. No constipation. No rectal bleeding. No hematochezia. No hematemesis. OBJECTIVE: VITAL SIGNS: Temperature is 98.5, pulse of 82, respirations 20, blood pressure is 161/76, and pulse oximeter 96%. HEENT: Normocephalic and atraumatic. Pupils reactive to light and accommodation. CVS: S1 and S2 normal. Regular rate and rhythm. ABDOMEN: Nontender and nondistended. EXTREMITIES: No clubbing, no cyanosis, no edema. Decreased sensation. BACK: Status post incision and drainage with some drainage still present. LABORATORY DATA: The patient's blood sugars were running in the 200+. White count is 13,000 yesterday, hemoglobin of 10.8, hematocrit of 34.3. Chemistry, sodium 135, potassium of 3.7, BUN of 45, and creatinine of 6.25. with incision and drainage and right lower extremity with surgery bandage in place. ASSESSMENT: 1. Mr. Yuri Velazquez with end stage renal disease. 2. Acute osteomyelitis status post surgery. 3. Hypertension. 4. Hyperlipidemia. 5. Peripheral artery disease. 6. Obesity. 7. Depression. PLAN: Continue to monitor the patient. Antibiotics on board. Dialysis as per Renal team. Further recommendation per clinical course. We will continue to monitor the patient. Discharge planning as per Case Management and plan to discharge with IV antibiotics. MD RAMILA Flores/CRISTHIANL /[id number]
--- NOTE | 2019-05-05 20:02 | NUR ---
Received bedside report from day nurse. Patient awake and resting in bed, no s/s of distress or c/o pain at this time. Refusing bed alarm. Educated on safety precautions. Call light placed within reach, instructed to call for assistance if needed, verbalized understanding. Will continue to monitor.
[2019-05-06] VITALS (8 sets, daily range): BP systolic 115–159; BP diastolic 62–74
[2019-05-06] MEDS: LINEZOLID 600 MG/D5W 300ML 300 ML IV SCH (01:00)
[2019-05-06] MEDS: HYDROMORPHONE 1MG/1ML INJ IV PRN ×4 (01:00→19:12)
[2019-05-06] MEDS: ONDANSETRON HCL 4 MG ORAL DISINTEGRATING TAB PO PRN ×2 (02:42→21:49)
[2019-05-06] MEDS: HYDROCODONE/APAP 10MG-325MG TAB PO PRN ×4 (04:30→21:09)
--- NOTE | 2019-05-06 07:09 | NUR ---
Bedside report given to day nurse. Patient awake and sitting up on side of bed, no s/s of distress at this time. All safety measures in place.
--- NOTE | 2019-05-06 07:15 | NUR ---
pt up on side of bed,pain level 3,
[2019-05-06] MEDS: INSULIN REGULAR, HUMAN 100 UNIT/1 ML 3ML VIAL SQ SCH ×4 (07:30→21:09)
--- NOTE | 2019-05-06 08:35 | NUR ---
CONTACTED WENDY @ [phone], LET HIM KNOW THE PT IS STILL AT HOSPITAL, HE STATES THEY WILL SET UP DME, HOME HEALTH AND PHYSICAL THERAPY FAXED ORDERS TO HIM. PT READY FOR DISCHARGE PER CASE MANAGEMENT SIDE.
[2019-05-06] MEDS: OMEGA 3 POLYUNSAT FATTY ACIDS 1000 MG SOFTGEL PO SCH (09:00)
[2019-05-06] MEDS: UBIDECARENONE 200 MG PO SCH (09:00)
--- NOTE | 2019-05-06 09:44 | Progress Note ---
DATE: SUBJECTIVE: The patient is here, status post surgery for right foot osteomyelitis and gangrene. No complaints today. Pain is controlled at 2/10. Has been getting pain medication. The patient is very eager and anxious about going home and need of physical therapy and need of a wheelchair and DME to be set up. Currently, no complaints other than that. OBJECTIVE: VITAL SIGNS: Temperature is 97.6, pulse of 70, respirations of 18, and blood pressure is 120/71. HEENT: Normocephalic and atraumatic. Pupils are reactive. CVS: S1 and S2 normal. Ejection systolic murmur ABDOMEN: The abdomen is nontender, nondistended, protuberant. EXTREMITIES: Right foot in bandage and in the cast. LABORATORY VALUES: White count is normal from 27. Chemistries; BUN and creatinine of 45 and 6.25 from yesterday. Microbiology shows Proteus vulgaris and Enterococcus avium growth. The patient is currently on linezolid, which is Zyvox and cefepime. The Enterococcus is sensitive to Zyvox and the Proteus is sensitive to Maxipime. PLAN: Continue on the current antibiotic regimen. Physical therapy to be instituted. The patient will need DMEs and rehab set up as an outpatient with home health. Continue with end- stage on hemodialysis. Further recommendation per clinical course. Possible discharge on Wednesday. MD RAMILA Flores/MODL /[id number]
[2019-05-06] MEDS: SEVELAMER CARBONATE 800 MG TAB PO SCH ×3 (09:51→17:00)
[2019-05-06] MEDS: ATORVASTATIN 20 MG TAB PO SCH (09:52)
[2019-05-06] MEDS: CEFEPIME 1GM/NS 0.9% 50 ML 50 ML IV SCH (09:52)
[2019-05-06] MEDS: ASPIRIN 81 MG CHEW TAB PO SCH (09:52)
[2019-05-06] MEDS: AMLODIPINE BESYLATE 10 MG TAB PO SCH (09:52)
[2019-05-06] MEDS: CLOPIDOGREL BISULFATE 75 MG TAB PO SCH (09:53)
[2019-05-06] MEDS: METOPROLOL SUCCINATE 25 MG TAB XL PO SCH (09:54)
[2019-05-06] MEDS: CHOLECALCIFEROL 1,000 UNIT TAB PO SCH (09:54)
[2019-05-06] MEDS: NILOTINIB HCL 150 MG PO SCH ×2 (10:00→21:10)
--- NOTE | 2019-05-06 18:31 | NUR ---
IV RESTARTED TO RT UPPER CHEST 20 G BY CHARGE NURSE.
--- NOTE | 2019-05-06 18:32 | NUR ---
PT UP IN BED ,PAIN LEVEL 3 SEVEROG CD&I,
--- NOTE | 2019-05-06 19:03 | NUR ---
Received bedside report from day nurse. Patient resting in bed, no s/s of distress at this time. Refusing bed alarm. Educated on safety precautions. Call light placed within reach, instructed to call for assistance, verbalized understanding. All safety measures in place. Will continue to monitor.
[2019-05-07] VITALS (9 sets, daily range): BP systolic 111–147; BP diastolic 58–74
[2019-05-07] MEDS: HYDROMORPHONE 1MG/1ML INJ IV PRN ×4 (01:40→20:10)
[2019-05-07] MEDS: HYDROCODONE/APAP 10MG-325MG TAB PO PRN ×4 (04:50→23:12)
--- NOTE | 2019-05-07 06:53 | NUR ---
Bedside report given to day nurse. Patient resting in bed, no s/s of distress at this time. All safety measures in place.
[2019-05-07 07:15] LABS: ANION GAP 20.7 mmol/L (8-16); CALCIUM 8.5 mg/dL (8.4-10.2); CREATININE, SERUM 8.01 mg/dL (0.72-1.25); POTASSIUM 4.7 mmol/L (3.5-5.1)
--- NOTE | 2019-05-07 07:20 | NUR ---
PT UP ON SIDE OF BED ,PAIN LEVEL 3,DSRG TO RT FOOT CD&I.
[2019-05-07] MEDS: INSULIN REGULAR, HUMAN 100 UNIT/1 ML 3ML VIAL SQ SCH ×4 (07:30→20:47)
--- NOTE | 2019-05-07 07:58 | Progress Note ---
DATE: SUBJECTIVE: The patient is a 64-year-old male, status post amputation. The patient is currently doing well. No complaints. No chest pain. The patient also has a wheelchair and DME setup. The patient is awaiting transfer to home. OBJECTIVE: VITAL SIGNS: Temperature is 98.3, pulse of 95, respirations of 18, blood pressure is 120/69, pulse oximetry of 99%. HEENT: Normocephalic and atraumatic. Pupils reactive to light and accommodation. CVS: S1 and S2 normal. Regular rate and rhythm. ABDOMEN: Nontender, nondistended. EXTREMITIES: No clubbing. No cyanosis. Foot with bandage. LABORATORY DATA: The patient's cultures as noted, grew Proteus vulgaris and Enterococcus, sensitive to both antibiotics. ASSESSMENT: Mr. Welch is with: 1. Osteomyelitis of the foot. 2. End-stage renal disease. 3. Hypertension. 4. Hyperlipidemia. 5. Peripheral artery disease. 6. Obesity. PLAN: Continue with wound care. The patient can go home on p.o. antibiotics, doxycycline twice a day for 2 weeks and Cipro 250 twice a day for 2 weeks. Continue with dialysis. Continue to monitor the patient, can be discharged. Further recommendation per clinical course. MD RAMILA Flores/MARCIA /[id number]
[2019-05-07] MEDS: SEVELAMER CARBONATE 800 MG TAB PO SCH ×3 (08:00→17:00)
--- NOTE | 2019-05-07 08:00 | NUR ---
C/O PAIN LEVEL 6 MEDICATED
[2019-05-07] MEDS: UBIDECARENONE 200 MG PO SCH (09:00)
[2019-05-07] MEDS: CLOPIDOGREL BISULFATE 75 MG TAB PO SCH (09:00)
[2019-05-07] MEDS: ASPIRIN 81 MG CHEW TAB PO SCH (09:00)
[2019-05-07] MEDS: METOPROLOL SUCCINATE 25 MG TAB XL PO SCH (09:00)
[2019-05-07] MEDS: AMLODIPINE BESYLATE 10 MG TAB PO SCH (09:00)
[2019-05-07] MEDS: OMEGA 3 POLYUNSAT FATTY ACIDS 1000 MG SOFTGEL PO SCH (09:00)
[2019-05-07] MEDS: CHOLECALCIFEROL 1,000 UNIT TAB PO SCH (09:00)
[2019-05-07] MEDS: ATORVASTATIN 20 MG TAB PO SCH (09:00)
[2019-05-07] MEDS: NILOTINIB HCL 150 MG PO SCH ×2 (09:49→22:00)
--- NOTE | 2019-05-07 10:58 | NUR ---
PT REQUESTING PO PAIN MEDS
--- NOTE | 2019-05-07 18:12 | NUR ---
PT UP IN W/C ,NO S/S DISCOMFORT,DRSG TO RT FOOT CD&I
--- NOTE | 2019-05-07 19:00 | NUR ---
BEDSIDE REPORT TAKEN, PT SITTING ON THE SIDE OF THE BED, RIGHT FOOT DRESSING INTACT, CALL LIGHT IN REACH, TABLE IN REACH
--- NOTE | 2019-05-07 20:15 | NUR ---
INITIAL ASSESSMENT COMPLETE, RIGHT FOOT INTACT DRESSING, IV INTACT TO RIGHT SHOULDER, LEFT FOOT WITH 3+EDEMA, UP TO BATHROOM WITH ASSIST, CALL LIGHT IN REACH, BM TODAY, PUTS OUT URINE, DIALYSIS IN AM, NO OTHER NEEDS,
--- NOTE | 2019-05-07 23:00 | NUR ---
pt awake, sitting up, pain meds given, encouraged to lay down, does not want to at this time, call light in reach, vs wnl
[2019-05-08] MEDS: HYDROMORPHONE 1MG/1ML INJ IV PRN ×2 (02:00→16:44)
--- NOTE | 2019-05-08 02:00 | NUR ---
pt laying in bed, pain meds given, call light in reach, vs wnl,
--- NOTE | 2019-05-08 04:00 | NUR ---
dr Cat here to see pt, vs wnl, call light in reach
[2019-05-08 04:50] VITALS: BP 127/71
[2019-05-08] MEDS: HYDROCODONE/APAP 10MG-325MG TAB PO PRN ×2 (05:05→11:49)
--- NOTE | 2019-05-08 05:25 | NUR ---
pain meds given, continue to monitor pt, vs wnl, call light in reach
--- NOTE | 2019-05-08 06:56 | NUR ---
Received bedside shift report from off going nurse. Patient is resting in bed. No acute distress noted. Call light within reach. Bed in the lowest position.
[2019-05-08] MEDS: INSULIN REGULAR, HUMAN 100 UNIT/1 ML 3ML VIAL SQ SCH ×3 (07:30→16:49)
[2019-05-08 08:00] VITALS: BP 135/69
[2019-05-08] MEDS: SEVELAMER CARBONATE 800 MG TAB PO SCH ×3 (08:28→16:50)
[2019-05-08] MEDS: OMEGA 3 POLYUNSAT FATTY ACIDS 1000 MG SOFTGEL PO SCH (08:29)
[2019-05-08] MEDS: ATORVASTATIN 20 MG TAB PO SCH (08:29)
[2019-05-08] MEDS: CHOLECALCIFEROL 1,000 UNIT TAB PO SCH (08:29)
[2019-05-08] MEDS: UBIDECARENONE 200 MG PO SCH (08:29)
[2019-05-08 08:47] VITALS: BP 135/69
[2019-05-08] MEDS: NILOTINIB HCL 150 MG PO SCH (09:00)
[2019-05-08] MEDS ORDERED: CEFEPIME HCL 1 GM VIAL IV SCH (09:00)
[2019-05-08] MEDS ORDERED: CEFEPIME 1GM/NS 0.9% 50 ML 50 ML IV SCH ×2 (09:00→16:00)
--- NOTE | 2019-05-08 09:34 | NUR ---
Patient started dialysis at this time.
[2019-05-08 11:31] VITALS: BP 157/88
--- NOTE | 2019-05-08 12:53 | Progress Note ---
DATE: 05/08/2019 SUBJECTIVE: Due for dialysis today. No new dyspnea. Still learning to walk, right foot partial amputation noted. PHYSICAL EXAMINATION: VITAL SIGNS: Temperature 97.3, pulse 86, blood pressure 135/69. CHEST: Clear. EXTREMITIES: Trace edema. VASCULAR: Pain in left upper extremity, AV fistula. Right foot is in a bandage. LABORATORY DATA: Hemoglobin is 10.8. Last potassium was 4.7. ASSESSMENT: 1. End-stage renal disease, diabetic nephropathy, at one point had some possibly interstitial nephritis. 2. Chronic myelogenous leukemia. 3. Peripheral vascular disease, status post Achilles tendon transmetatarsal amputation with tendon lengthening and flap closure. PLAN: Hemodialysis today. Try 4 hour run. Blood flow rate 350 mL/minute, dialysate flow rate 700 mL/minute, F160 filter, two potassium bath. We will follow along. MD JULIAN VivasK/MODL /[id number]
--- NOTE | 2019-05-08 13:34 | NUR ---
Dialysis finished at this time. 4L of fluid removed.
--- NOTE | 2019-05-08 13:46 | NUR ---
JONATHAN, BEDSIDE NURSE STATES DR. FABIAN STATED HE WOULD NOT DC THE PT W/O THE WC AND WALKER IN THE ROOM PRIOR TO DC. CALL TO DR. FABIAN. NO ANSWER. LEFT MESSAGE TO INFORM THAT THE PT WILL ONLY BE ABLE TO RECEIVE THE WC OR THE WALKER AT DC. CALL TO [facility]. STATES THEY CAN PROVIDE THE PT A LOANER WC UNTIL THEY CAN GET AUTH FOR THE WC, BUT CAN ONLY DELIVER TO THE PT WHEN THEY ADMIT HIM TOMORROW. NOTIFIED NURSING. AWAITING CALL BACK FROM DR. FABIAN.
--- NOTE | 2019-05-08 13:59 | Progress Note ---
DATE: SUBJECTIVE: Mr. Velazquez is lying in bed comfortably. Discussed with Dr. Erickson. The patient has no new complaints. REVIEW OF SYSTEMS: HEENT: Negative. PULMONARY: Negative. CARDIAC: Negative, status post TMA. PHYSICAL EXAMINATION: GENERAL: Currently alert and oriented, does not seem in acute distress. VITAL SIGNS: Stable, currently afebrile. HEENT: Not icteric. NECK: Supple. CHEST: Clear. HEART: S1, S2. No S3, S4, or murmur. ABDOMEN: Soft. Bowel sounds present. No tenderness. EXTREMITIES: No edema. IMPRESSION: Osteomyelitis, status post TMA. PLAN: 1. Can be discharged home with oral antibiotic tomorrow. Continue with local care. 2. His cultures showed multiple gram-negative, can discharge home with Cipro 250 mg p.o. b.i.d. 3. Chronic kidney disease. 4. Diabetes mellitus with neuropathy. 5. Other medical problem as above. Continue with local care. 6. We will follow. MD TAMAR Corbin/MARCIA /[id number]
--- NOTE | 2019-05-08 14:00 | NUR ---
Nurse asked Dr. Cat if patient is ok for discharge since dialysis finished and home health set up. Per MD patient needs wheelchair and medical equipment in room before he can discharge. Notified case management. Per case management, home health agent will be able to provide equipment tomorrow morning when patient admits with them. Notified Dr. Cat, awaiting on response.
[2019-05-08] MEDS ORDERED: CIPRO500 MG PO (15:28)
--- NOTE | 2019-05-08 15:42 | NUR ---
Per Dr. Emory lane for patient to be discharged home. Per case management, walker will be provided by us. Wheelchair to be delivered to patient's home tomorrow morning by home health.
[2019-05-08 15:52] VITALS: BP 115/69
--- NOTE | 2019-05-08 16:13 | NUR ---
CM ATTEMPTED TO DELIVER WALKER TO THE PT. PT STATES HE HAS NOT BEEN USING THE WALKER IN THE ROOM AND WILL NEED THE WC. MECHE CASTILLO, TANIYA PRESENT. SW WILL ATTEMPT TO GET PT A WC.
[2019-05-08] MEDS: AMLODIPINE BESYLATE 10 MG TAB PO SCH (16:15)
[2019-05-08] MEDS: CLOPIDOGREL BISULFATE 75 MG TAB PO SCH (16:15)
[2019-05-08] MEDS: ASPIRIN 81 MG CHEW TAB PO SCH (16:15)
[2019-05-08] MEDS: METOPROLOL SUCCINATE 25 MG TAB XL PO SCH (16:16)
--- NOTE | 2019-05-08 16:37 | NUR ---
Patient states he can't use a walker, so case management is to provide wheelchair tonight before patient gets discharged.
--- NOTE | 2019-05-08 17:49 | NUR ---
REFERRAL WAS GIVEN TO MENA SALAZAR. STATES HE WILL PROVIDE THE PT A WHEELCHAIR TO [facility] TODAY. MENA OFF: [phone] / FAX: [phone]
--- NOTE | 2019-05-08 17:53 | NUR ---
NOTIFIED [facility] PT IS BEING PROVIDED A WC.
--- NOTE | 2019-05-08 18:40 | NUR ---
Received discharge order from MD. Patient is in stable condition. IV line to right chest discontinued with tip intact, pressure applied to site, no bleeding noted. Wheelchair delivered to patient. Home medications returned, brother at bedside at this time. Discharge teaching provided to patient, he verbalized understanding. Discharge folder with paperwork and prescription on hand. All personal items on hand. Patient accompanied to private auto via wheelchair by staff.
== END 2019-05-08 18:44 | disposition home health service (06) | DRG 853 ==
LOC: CATH LAB 14:00 → MED/SURG 15:59 → OBSVTOIN 04-27 12:53 → MED/SURG3 04-28 15:53
PROVIDERS: ADMIT Internal Medicine; ATTEND Internal Medicine
PROC: 04VK3DZ Restriction of Right Femoral Artery with Intraluminal Device, Percutaneous Approach (ICD-10-PCS; principal; 2019-04-25)
PROC: 5A1D70Z Performance of Urinary Filtration, Intermittent, Less than 6 Hours Per Day (ICD-10-PCS; 2019-04-26)
PROC: 0Y6M0Z9 Detachment at Right Foot, Partial 1st Ray, Open Approach (ICD-10-PCS; 2019-05-03)
PROC: 0Y6M0ZB Detachment at Right Foot, Partial 2nd Ray, Open Approach (ICD-10-PCS; 2019-05-03)
PROC: 0Y6M0ZC Detachment at Right Foot, Partial 3rd Ray, Open Approach (ICD-10-PCS; 2019-05-03)
PROC: 0Y6M0ZD Detachment at Right Foot, Partial 4th Ray, Open Approach (ICD-10-PCS; 2019-05-03)
PROC: 0Y6M0ZF Detachment at Right Foot, Partial 5th Ray, Open Approach (ICD-10-PCS; 2019-05-03)
PROC: 0L8N0ZZ Division of Right Lower Leg Tendon, Open Approach (ICD-10-PCS; 2019-05-03)
PROC: 0J9Q0ZZ Drainage of Right Foot Subcutaneous Tissue and Fascia, Open Approach (ICD-10-PCS; 2019-05-03)
DX: A41.9 Sepsis, unspecified organism (principal); N18.6 End stage renal disease; E11.52 Type 2 diabetes mellitus with diabetic peripheral angiopathy with gangrene; L03.115 Cellulitis of right lower limb; I13.2 Hypertensive heart and chronic kidney disease with heart failure and with stage 5 chronic kidney disease, or end stage renal disease; I50.22 Chronic systolic (congestive) heart failure; M86.171 Other acute osteomyelitis, right ankle and foot; N25.81 Secondary hyperparathyroidism of renal origin; C92.10 Chronic myeloid leukemia, BCR/ABL-positive, not having achieved remission; L02.611 Cutaneous abscess of right foot; I72.4 Aneurysm of artery of lower extremity; E11.22 Type 2 diabetes mellitus with diabetic chronic kidney disease; E11.51 Type 2 diabetes mellitus with diabetic peripheral angiopathy without gangrene; E11.621 Type 2 diabetes mellitus with foot ulcer; E11.69 Type 2 diabetes mellitus with other specified complication; E11.40 Type 2 diabetes mellitus with diabetic neuropathy, unspecified; L97.519 Non-pressure chronic ulcer of other part of right foot with unspecified severity; E11.65 Type 2 diabetes mellitus with hyperglycemia; B96.4 Proteus (mirabilis) (morganii) as the cause of diseases classified elsewhere; B95.2 Enterococcus as the cause of diseases classified elsewhere; M21.371 Foot drop, right foot; M54.9 Dorsalgia, unspecified; I25.118 Atherosclerotic heart disease of native coronary artery with other forms of angina pectoris; E66.9 Obesity, unspecified; W08.XXXA Fall from other furniture, initial encounter; Y92.009 Unspecified place in unspecified non-institutional (private) residence as the place of occurrence of the external cause; Z99.2 Dependence on renal dialysis; Z68.32 Body mass index [BMI] 32.0-32.9, adult; Z79.02 Long term (current) use of antithrombotics/antiplatelets; Z79.82 Long term (current) use of aspirin; Z79.84 Long term (current) use of oral hypoglycemic drugs
CPT/HCPCS: 36247; 36415; 37221; 75710; 76705; 80048; 80053; 82948; 84100; 84132; 84484; 85007; 85025; 85027; 85610; 85730; 86704; 86705; 86707; 87071; 87075; 87186; 87205; 87340; 88304; 88311; 90962; 93005; 96372; 97139; 99152; 99153; C1725; C1874; G0378; J0692; J0720; J1170; J1817; J2001; J2020; J2250; J2405; J2720; J3010; J3370; J7030; J7040; J7050; J7799; Q0162; Q9967

== ENCOUNTER 2019-05-20 16:14 | Inpatient (IN) | payer MEDICARE, OTHER ==
[~2019-05-20] VITALS: Ht 172.7 cm; Wt 92.8 kg
[~2019-05-20 16:14] MED LIST changes: +CIPRO500 MG PO; +FLUCONAZOLE100 MG PO
[2019-05-20] MEDS ORDERED: DEXTROSE 50% SYRINGE 50 ML IV ONE (16:45)
[2019-05-20 17:03] LABS: BASOPHILS # (AUTO) 0.1 (0.0-0.1); BASOPHILS % 0.4 % (0.0-1.0); EOSINOPHILS # (AUTO) 0.9 (0.0-0.4); EOSINOPHILS % 6.5 % (0.0-6.0); LYMPHOCYTES # (AUTO) 0.9 (1.0-3.2); LYMPHOCYTES % 6.1 % (18.0-39.1); MEAN CORPUSCULAR HEMOGLOBIN 32.2 pg (28-32); MEAN CORPUSCULAR HGB CONC 31.4 g/dL (31-35); MEAN CORPUSCULAR VOLUME 102.3 fL (81-99); MONOCYTES # (AUTO) 0.8 (0.2-0.8); MONOCYTES % 5.4 % (4.4-11.3); NEUTROPHILS # (AUTO) 11.3 (2.1-6.9); PLATELET COUNT 281 x10e3/uL (140-360); RED BLOOD COUNT 3.42 x10e6/uL (4.3-5.7); RED CELL DISTRIBUTION WIDTH 20.9 % (11.7-14.4)
[2019-05-20 17:15] LABS: INR 0.95; PROTHROMBIN TIME 13.2 seconds (11.9-14.5)
[2019-05-20] MEDS: DEXTROSE 5% 1,000 ML IV SCH (17:15)
[2019-05-20 17:16] LABS: PARTIAL THROMBOPLASTIN TIME 27.1 seconds (23.8-35.5)
[2019-05-20 17:25] LABS: ALBUMIN/GLOBULIN RATIO 1.1 (0.8-2.0); CREATININE, SERUM 7.88 mg/dL (0.72-1.25); MAGNESIUM 2.6 MG/DL (1.3-2.1)
[2019-05-20 17:33] LABS: CREATINE KINASE MB 8.3 ng/mL (0-5.0)
--- NOTE | 2019-05-20 17:45 | Diagnostic Imaging Report ---
Examination: CT head without contrast Clinical Indication: Confusion. Technique: Transaxial noncontrast images from the skull base through the vertex were obtained. Sagittal and coronal reformatted images were done. Dose modulation, iterative reconstruction, and/or weight based adjustment of the mA/kV was utilized to reduce the radiation dose to as low as reasonably achievable. Comparison: None. Findings: Scalp: No abnormalities. Bones: Intact. No fractures. No blastic or lytic lesions. Brain sulci: Mild volume loss for patient's age. Ventricles: No hydrocephalus. Extra-axial space: No abnormalities. Parenchyma: There are patchy areas of low-attenuation within subcortical and periventricular white matter, nonspecific, but could represent microvascular ischemic disease. Chronic lacunar infarcts of the right frontal periventricular white matter, left caudate body and right cerebellum. No masses, hemorrhage, or acute or chronic cortical based vascular insults. Suprasellar region: No abnormalities. Craniocervical junction: The foramen magnum is patent. No Chiari one malformation. Impression: 1. No acute intracranial finding. 2. Mild chronic microvascular ischemic change and volume loss. Chronic lacunar infarcts as above. Signed by: Dr. Wandy Navarro M.D. on 05/20/2019 5:41 PM
--- NOTE | 2019-05-20 18:00 | Diagnostic Imaging Report ---
Examination: Single AP view of the chest. COMPARISON: None available. INDICATION: AMS IMPRESSION: 1. Lines and Tubes: None 2. Lungs are well inflated and grossly clear. No consolidation or pulmonary edema. 3. Mild prominence of the cardiac silhouette, likely due to portable AP projection. Pulmonary vasculature is normal. 4. No acute bony abnormalities. Signed by: Dr. Zac Sanchez M.D. on 05/20/2019 5:57 PM
[2019-05-20] MEDS ORDERED: DEXTROSE 50% SYRINGE 50 ML IV PRN (18:30)
[2019-05-20] MEDS ORDERED: ONDANSETRON HCL INJ 2MG/ML 2ML 2 MG/ML VIAL IV PRN (18:30)
--- NOTE | 2019-05-20 19:30 | NUR ---
Patient is a dialysis patient. Unable to obtain urine sample at this time.
[2019-05-20 20:52] VITALS: BP 131/84
[2019-05-20 21:00] VITALS: BP 131/84
[2019-05-20] MEDS: INSULIN LISPRO 100 UNIT/1 ML 3ML VIAL SQ SCH (21:00)
--- NOTE | 2019-05-20 21:05 | NUR ---
RECEIVED PATIENT FROM ER. PATIENT IS AAOX3. RESP EVEN AND UNLABORED. NO ACUTE DISTRESS NOTED. PATIENT DENIES OF ANY PAIN OR DISCOMFORT AT THIS TIME. RIGHT FOOT DRESSING NOTED, DRY AND INTACT. PATIENT STATED HE HAD RIGHT TOE AMPUTATION 3 WEEKS AGO. PATIENT STATED HE MISSED DIALYSIS ON WEDNESDAY BECAUSE HE WAS TOO WEAK. TELE IN PLACE NOTED. ORIENTED TO ROOM. CALL LIGHT WITHIN REACH. INSTRUCT TO CALL FOR ASSISTANCE. PATIENT VERBALIZE UNDERSTANDING. BED LOW/LOCKED. BED ALARM IS ON. CONTINUE TO MONITOR CLOSELY
[2019-05-20] MEDS ORDERED: ALBUTEROL SULFATE HFA 8GM INHALATION AEROSOL INH PRN (22:30)
[2019-05-20] MEDS ORDERED: TRAMADOL HCL 50 MG TAB PO SCH (22:30)
[2019-05-20] MEDS ORDERED: IBUPROFEN 200 MG TAB PO PRN (22:30)
[2019-05-20 22:45] VITALS: BP 131/84
[2019-05-20] MEDS ORDERED: TRAMADOL HCL 50 MG TAB PO PRN (22:45)
[2019-05-21] VITALS (8 sets, daily range): BP systolic 128–136; BP diastolic 60–81
[2019-05-21] MEDS: TRAMADOL HCL 50 MG TAB PO PRN ×4 (00:47→21:34)
[2019-05-21 06:33] LABS: BASOPHILS # (AUTO) 0.1 (0.0-0.1); BASOPHILS % 0.4 % (0.0-1.0); EOSINOPHILS # (AUTO) 1.1 (0.0-0.4); EOSINOPHILS % 9.3 % (0.0-6.0); HEMATOCRIT 30.1 % (38.2-49.6); HEMOGLOBIN 9.6 g/dL (14.0-18.0); LYMPHOCYTES # (AUTO) 1.5 (1.0-3.2); LYMPHOCYTES % 12.2 % (18.0-39.1); MEAN CORPUSCULAR HEMOGLOBIN 32.2 pg (28-32); MEAN CORPUSCULAR HGB CONC 31.9 g/dL (31-35); MONOCYTES # (AUTO) 0.7 (0.2-0.8); MONOCYTES % 6.2 % (4.4-11.3); NEUTROPHILS # (AUTO) 8.4 (2.1-6.9); PLATELET COUNT 226 x10e3/uL (140-360); RED BLOOD COUNT 2.98 x10e6/uL (4.3-5.7); RED CELL DISTRIBUTION WIDTH 20.8 % (11.7-14.4)
[2019-05-21] MEDS: DEXTROSE 5% 1,000 ML IV SCH (06:36)
--- NOTE | 2019-05-21 07:00 | NUR ---
received bedside report. pt is sleeping, no s/s of distress. call light within reach and bed safety in place
[2019-05-21 07:20] LABS: ALBUMIN 3.3 g/dL (3.5-5.0); ALBUMIN/GLOBULIN RATIO 1.1 (0.8-2.0); ANION GAP 16.9 mmol/L (8-16); CALCIUM 8.2 mg/dL (8.4-10.2); CREATININE, SERUM 8.21 mg/dL (0.72-1.25); POTASSIUM 3.9 mmol/L (3.5-5.1)
[2019-05-21] MEDS: INSULIN LISPRO 100 UNIT/1 ML 3ML VIAL SQ SCH ×5 (07:26→21:25)
--- NOTE | 2019-05-21 07:58 | NUR ---
spoke with Angie at [facility] and arranged STAT hemodialysis for today 05/21/2019
[2019-05-21] MEDS: CLOPIDOGREL BISULFATE 75 MG TAB PO SCH (08:18)
[2019-05-21] MEDS: ASPIRIN 81 MG CHEW TAB PO SCH (08:18)
[2019-05-21] MEDS: SEVELAMER CARBONATE 800 MG TAB PO SCH ×3 (08:18→17:13)
[2019-05-21] MEDS: ATORVASTATIN 20 MG TAB PO SCH (08:18)
[2019-05-21] MEDS: CHOLECALCIFEROL 1,000 UNIT TAB PO SCH (08:18)
[2019-05-21] MEDS: METOPROLOL SUCCINATE 25 MG TAB XL PO SCH (08:19)
[2019-05-21] MEDS: AMLODIPINE BESYLATE 10 MG TAB PO SCH (08:19)
--- NOTE | 2019-05-21 08:26 | NUR ---
paged Dr. Mahmood for dialysis orders, waiting for call back
--- NOTE | 2019-05-21 08:29 | NUR ---
spoke with covering physician, Dr. Gilmore, and he stated that dialysis needs to be done today and to call the dialysis nurse to come in. Spoke to Bebeto with [facility] dialysis and he stated that he will call for orders
[2019-05-21] MEDS ORDERED: NILOTINIB HCL 150 MG PO SCH (09:00)
--- NOTE | 2019-05-21 11:20 | History and Physical ---
CHIEF COMPLAINT: A 64-year-old gentleman, comes in with acute mental status changes, what is found to be hypoglycemic. HISTORY OF PRESENTING ILLNESS: Mr. Yuri Velazquez, who is a 64-year-old gentleman was in usual state of health until 2 days prior to admission. The patient had nausea, vomiting, and diarrhea, missed his dialysis and the patient did take his all his oral diabetic medicine, was found to be disoriented. He took his blood sugars, it was in the 50s. He called EMS and was brought to the emergency room, and was found to have hyperglycemic episode and the patient also with end-stage renal disease, admitted for both currently. PAST MEDICAL HISTORY: History of uncontrolled diabetes mellitus with neuropathy, history of hypertension, history of hyperlipidemia, history of peripheral artery disease, history of osteoarthritis, history of hyperlipidemia. The patient also has history of leukemia, which he takes chemotherapy. MEDICATIONS: He takes at home are mg q.6 hours as needed, amlodipine 10 mg daily, aspirin 81 mg daily, atorvastatin 20 mg daily, clopidogrel 75 mg daily, ibuprofen 200 mg daily, metoprolol 25 mg daily, Tasigna 150 mg twice a day, Renvela for his dialysis, tramadol 50 mg daily, and Co Q10 daily. PAST SURGICAL HISTORY: History of recent debridement and amputation of his lower toes, bilateral cataract surgery, multiple fistulas, and lung surgery. ALLERGIES: THE PATIENT IS ALLERGIC TO CLINDAMYCIN, FENTANYL. SOCIAL HISTORY: No EtOH. No IV drug abuse. Lives by himself. FAMILY HISTORY: History of diabetes mellitus, pancreatic cancer, liver cancer, and alcohol abuse in family. REVIEW OF SYSTEMS: Negative for chest pain. Positive for disorientation. No shortness of breath. No nausea. No vomiting. No diarrhea. No constipation. No rectal bleeding. No hematochezia at this time. The patient had abrupt bout about 2 days ago of nausea and vomiting. PHYSICAL EXAMINATION: VITAL SIGNS: Temperature is 97.4, pulse of 62, respirations of 19, blood pressure is 128/60, and pulse oximetry of 97%. HEENT: Normocephalic, atraumatic. The patient has a right-sided subconjunctival hemorrhage. CVS: S1 and S2 normal. Regular rate and rhythm. ABDOMEN: Nontender, nondistended. EXTREMITIES: Fistula noted in extremities, otherwise right lower extremity in bandage, status post amputation. LABORATORY VALUES: White count is 11.84, yesterday was 14,000; hemoglobin of 9.6, hematocrit 30.0. Chemistry; shows sodium of 138, potassium 3.9, BUN of 40, creatinine of 8.21. Glucose initially was 53, at this time, he is 49 again. Coags are normal. Chest x-ray shows no acute abnormalities, mild prominence of cardiac silhouette, and no consolidation or pulmonary edema. Brain CT, mild chronic microvascular changes. No acute intracranial findings. ASSESSMENT: Mr. Yuri Velazquez with: 1. Acute mental status changes. 2. Metabolic encephalopathy. 3. Hypoglycemia. 4. End-stage renal disease. 5. History of osteomyelitis, on antibiotics. 6. Diabetes with neuropathy and end-stage renal disease. PLAN: 1. We will take him my office when upright. 2. The patient will probably need dialysis, although not emergent, potassium is normal. No volume overload noted. Restart on his regular home medications. End-stage renal disease continue dialysis and for hyperlipidemia continue lipid management. 3. Further recommendation per clinical course. We will hold back on his sliding scale and/or any oral hypoglycemics, secondary to ongoing hypoglycemia. Carl Cueto MD ASJ/MODL /[id number]
[2019-05-21] MEDS ORDERED: SODIUM CHLORIDE 0.9% 1000ML 2,000 ML ONE (12:19)
[2019-05-21 12:32] LABS: CREATINE KINASE MB 5.6 ng/mL (0-5.0)
[2019-05-21] MEDS ORDERED: POLYETHYLENE GLYCOL 3350 17 GM PACK PO PRN (14:15)
--- NOTE | 2019-05-21 19:15 | NUR ---
BSSR RECEIVED FROM [facility], PATIENT AWAKE ALERT, SITTING ON THE EDGE OF BED, NO REPORTS OF PAIN OR DISCOMFORT AT THIS TIME, RIGHT FOOT DRESSING AND BOOT IN PLACE, DRESSING C/D/I, PATIENT REPORT BM EARLIER TODAY
--- NOTE | 2019-05-21 21:02 | Consultation ---
DATE OF CONSULTATION: 05/21/2019 Nephrology Consultation REASON FOR CONSULT: End-stage kidney disease, nephrology events and progress noted. HISTORY OF PRESENT ILLNESS: Mr. Velazquez is a 64-year-old male with the following problem list: 1. End-stage kidney disease, on chronic hemodialysis on Mondays, Wednesdays, and Fridays. 2. Peripheral arterial disease. 3. Diabetic neuropathy. 4. Diabetes mellitus type 2. 5. Dyslipidemia. 6. Osteoarthritis. 7. History of leukemia, on chemotherapy. The patient had presented to the emergency room after having missed his dialysis treatment and unable to drive since he underwent right foot surgery and he had been burdened by needing to take taxis back and forth to dialysis. He felt ill and had developed nausea and vomiting and did not make it to his dialysis treatment. In the emergency room, he was found to be hypoglycemic. He also thinks that he is constipated. PAST MEDICAL HISTORY: As above per problem list. MEDICATIONS: Per medication list: 1. Amlodipine. 2. Aspirin. 3. Atorvastatin. 4. Clopidogrel. 5. Ibuprofen. 6. Metoprolol. 7. Tasigna. 8. Renvela. 9. Tramadol. 10. Glimepiride. PAST SURGICAL HISTORY: Debridement and amputation of his lower toes on the right, bilateral cataract surgery and injections to the right eye, AV access placement, and lung surgery. ALLERGIES: STATED TO CLINDAMYCIN AND FENTANYL. SOCIAL HISTORY: Denies any tobacco, alcohol, illicit or recreational drug use. FAMILY HISTORY: Mostly noncontributory, but positive for diabetes, pancreatic cancer, liver cancer, and alcohol abuse. REVIEW OF SYSTEMS: He thinks he is constipated. Denied any fever, chills, masses, or rashes. His vomiting has subsided. No chest pain. No shortness of breath. PHYSICAL FINDINGS: GENERAL: Alert, oriented, adult male, sitting up in bed, in no acute distress. VITAL SIGNS: Heart rate 64 per minute, blood pressure 128/60, and afebrile. HEENT: Fundi not visualized. Conjunctivae anicteric. Head, normocephalic and atraumatic. Right eye slightly with mild conjunctivitis. LUNGS: Bilaterally clear to auscultation. HEART: Normal heart sounds. No additional sounds. ABDOMEN: Soft and nontender. No organomegaly. EXTREMITIES: No cyanosis, clubbing, or edema. Dialysis access, left upper arm AV fistula with good function. LABORATORY FINDINGS: Noted and reviewed. ASSESSMENT AND PLAN: 1. End-stage kidney disease. The patient is receiving hemodialysis as per orders. Ultrafiltration as tolerated. 2. Diabetes mellitus type 2. The patient was hypoglycemic on glimepiride, which was discontinued. He should probably avoid all diabetic medications for now due to his total loss of kidney function. 3. Social. The patient probably needs assistance in getting back and forth to his dialysis unit in order to avoid the financial burden. Unfortunately, it seems that his insurance plan does not cover transportation. 4. Anemia of chronic disease. Hematocrit and hemoglobin are in decent range acceptable. 5. Secondary hyperparathyroidism. 6. Hypertension. Blood pressure is well controlled. 7. Disposition. Discussed my evaluation, assessment, and plan of care with the patient in details. All his questions were answered to his satisfaction until he had none. I will follow with you. MD MARCUS Lama/MARCIA /[id number]
--- NOTE | 2019-05-21 23:29 | NUR ---
patient used call light to request assistance to bathroom, patient used walker, non-weight bearing on right foot, boot in place, dressing dry intact, no drainage noted, pt requesting dressing change, request carried out, sheets changed on bed, bed back in lowest position, call light within reach, bed alarm placed on for safety
[2019-05-22] VITALS (12 sets, daily range): BP systolic 123–152; BP diastolic 62–86
[2019-05-22] MEDS: TRAMADOL HCL 50 MG TAB PO PRN ×2 (03:30→19:39)
--- NOTE | 2019-05-22 06:15 | NUR ---
PHARMACY CALLED TO CONFIRM NEW TORADOL ORDER, PER MD FABIAN DOSE IS OKAY PATIENT IS ON DIALYSIS, DOSE VERIFIED OKAY PER TO GIVE MEDICATION DOSE IV
[2019-05-22] MEDS ORDERED: KETOROLAC TROMETHAMINE 30 MG/ML VIAL IV ONE (06:55)
--- NOTE | 2019-05-22 07:04 | Diagnostic Imaging Report ---
Exam: Left hand radiographs-3 views Clinical History: Pain, swelling. Comparison: None. Findings: There is soft tissue edema throughout the hand. No evidence of erosion or periosteal reaction. No evidence of radiopaque foreign body. Well-corticated bony fragments adjacent to the fourth finger proximal phalangeal base and fifth metacarpal base may represent sequela of remote trauma. Suggest clinical correlation. No evidence of acute fracture or malalignment. Moderate degenerative changes at the first carpometacarpal joint and scattered mild interphalangeal joint degenerative changes. Impression: Soft tissue edema in the hand without radiographic evidence of osteomyelitis. No acute osseous abnormality. Degenerative changes and findings of remote trauma as above. Signed by: Dr. Malathi Diaz MD on 05/22/2019 7:01 AM
--- NOTE | 2019-05-22 07:20 | NUR ---
PATIENT SITTING AT BED SIDE WATCHING TV, NO DISTRESS NOTED. SWELLING TO LEFT HAND, RIGHT TMA WITH DRESSING INTACT. BED IN LOWER POSITION, CALL LIGHT AT REACH.
[2019-05-22] MEDS: SEVELAMER CARBONATE 800 MG TAB PO SCH ×3 (08:30→17:15)
[2019-05-22] MEDS: UBIDECARENONE 200 MG PO SCH (09:00)
[2019-05-22] MEDS ORDERED: SODIUM CHLORIDE 0.9% 1000ML 1,000 ML ONE (09:11)
--- NOTE | 2019-05-22 09:23 | NUR ---
Nutrition Screen Note RD Recommendation for Physician: -Continue current diet per MD. -Recommend renal diet pending lab trends. Plan of Care: RD following, monitoring for tolerance and adequacy. Education provided. Nutrition reason for involvement: (Diagnosis- ESRD) Primary Diagnose(s): ESRD, hypoglycemia PMH: History of uncontrolled diabetes mellitus with neuropathy, history of hypertension, history of hyperlipidemia, history of peripheral artery disease, history of osteoarthritis, history of hyperlipidemia. The patient also has history of leukemia, which he takes chemotherapy. Ht: 68 in Wt: 207 lb BMI: 31.5kg/m2 IBW:[address] Assessment: 05/21: 64 YOM admitted for ESRD with PMH listed above. Per H and P, the pt missed dialysis and the pt did not take his oral DM pill d/t vomiting and diarrhea causing him to have low sugars. Currently pt does not need dialysis at this time and they are holding back his DM meds per MD note. POC GM: 61-116. The pt reported a good appetite but reported having some nausea. He did state he had some weight loss d/t following a more restrictive diet at home, he did not report it being significant. The pt denied C/D/chewing or swallowing issues as well as any food allergies. Pt accepted education on the ESRD MNT and reported he has had it before d/t him being on dialysis for 4 years. Pt had no other questions or concerns. Chart reviewed. Labs and meds reviewed. Pt has been consuming 100% of his meals per FS. Pt was here in Apr and was 204 lbs at that time suggesting no weight loss. Will continue to monitor. Current Diet: 1800 ADA diet Malnutrition Evaluation (05/21) The patient does not meet criteria for a specified degree of malnutrition at this time. Will re-evaluate at follow-up as appropriate. Diet Education Needs Assessment: Diet education indicated, pt accepted. Diet Adequacy: Meeting calorie needs, Meeting protein needs, Learner(s): pt Barriers: none Cultural/Language Modifications: none Readiness: acceptance Method: discussion, handout Topics:ESRD MNT Understanding/Compliance: verbalized understanding, anticipate fair compliance Nutrition Care Level: low Signed: Liliya Mcdaniel, RD, LD
[2019-05-22] MEDS: FISH OIL PO SCH (11:00)
--- NOTE | 2019-05-22 11:05 | NUR ---
BED SIDE HEMODIALYSIS IN PROGRESS, CALL LIGHT AT REACH.
[2019-05-22] MEDS: INSULIN LISPRO 100 UNIT/1 ML 3ML VIAL SQ SCH ×3 (11:30→21:00)
--- NOTE | 2019-05-22 11:44 | NUR ---
WENT TO SPEAK TO PT REGARDING TRANSPORTATION FOR DIALYSIS, HE STATES HE DID NOT COME HERE BECAUSE OF LACK OF TRANSPORT, HE STATES IT WAS BECAUSE HE WAS SICK. HE STATES HE HAS MEDICARE AND THE SW AT DIALYSIS SAID HE DOESNT QUALIFY. HE STATES HE IS USING A CAB UNTIL THE WOUND CARE IS DONE THEN HE WILL DRIVE HIMSELF AGAIN.
--- NOTE | 2019-05-22 14:48 | NUR ---
WOUND CONSULTATION: PATIENT APPEARS TO BE SLIGHTLY AGITATED WITH NOTED CONFUSION STATING "I AM OUTPATIENT AND NOT HERE FOR DIALYSIS" WHILE ACTIVELY RECEIVING DIALYSIS. RIGHT FOOT WITH 5 DIGIT AMPUTATION SITE INTACT WITH SUTURES, DRY, NO DISCOLORATION TO JOHANA AMPUTATION SITE. DIALYSIS NURSE STATES DR BOONE (COVERING FOR DR MELGAR) VISUALIZED AMPUTATION SITE PRIOR TO WC TEAM ARRIVING & REWRAPPED WITH DRY GAUZE/KERLIX. WILL CONSULT WITH DR BOONE ON ORDER RECOMMENDATIONS. WBC: 11.88 GLUCOSE: 106 ALB: 3.3 THANK YOU FOR CONSULTATION Addendum: 05/22/19 at 1450 by Brianda Olmedo RN Amended: Links added.
--- NOTE | 2019-05-22 14:55 | Consultation ---
DATE OF CONSULTATION: 05/22/2019 CHIEF COMPLAINT HISTORY OF CHIEF COMPLAINT: Mr. Velazquez is a most pleasant 64-year-old gentleman, who has recently undergone a transmetatarsal amputation of the right foot. That foot is following a normal course of healing from transmetatarsal amputation, the patient's previous medical history includes end-stage renal disease, diabetes, distal peripheral neuropathy, and PAD. He is in his current state of health when he noticed a blood sugar crash, which caused him to be transported by ambulance to the emergency room here, where he was admitted. This patient is currently undergoing dialysis on rounds. He has no other complaints. His right foot following a normal course of healing, dressing change showed well coapted suture line. At this point, I would recommend the sutures be left in place until he is discharged to an outpatient setting. He should follow with Dr. Erickson next week after discharge. ELISA Escamilla/MARCIA /[id number]
--- NOTE | 2019-05-22 15:23 | NUR ---
BEDSIDE HEMODIALYSIS COMPLETED, 2L REMOVED PER DIALYSIS NURSE. B/P 125/66, HR 71.
--- NOTE | 2019-05-22 16:29 | NUR ---
SENT TO R1 FOR LOC DETERMINATION. [facility] case account ending in 3670 has been reviewed and completed by PAS Physicians. Service Line: Level of Care (LOC) / Admission Status Review Initial patient type was submitted as: IN - Inpatient PAS Recommendation: IN
[2019-05-22] MEDS: ATORVASTATIN 20 MG TAB PO SCH (17:10)
[2019-05-22] MEDS: ASPIRIN 81 MG CHEW TAB PO SCH (17:10)
[2019-05-22] MEDS: CHOLECALCIFEROL 1,000 UNIT TAB PO SCH (17:15)
[2019-05-22] MEDS: AMLODIPINE BESYLATE 10 MG TAB PO SCH (17:15)
[2019-05-22] MEDS: METOPROLOL SUCCINATE 25 MG TAB XL PO SCH (17:15)
[2019-05-22] MEDS: CLOPIDOGREL BISULFATE 75 MG TAB PO SCH (17:15)
--- NOTE | 2019-05-22 19:12 | NUR ---
BEDSIDE SHIFT REPORT GIVEN TO ON COMING NURSE.
--- NOTE | 2019-05-22 19:40 | NUR ---
RECEIVED PT SITTING ON THE SIDE OF THE BED AOX3 ,C/O PAIN RT FOOT .CALL LIGHT WITH IN REACH ,CONTINUE TO MONITOR
[2019-05-23] VITALS (8 sets, daily range): BP systolic 132–166; BP diastolic 69–80
[2019-05-23] MEDS: TRAMADOL HCL 50 MG TAB PO PRN ×2 (04:38→16:33)
[2019-05-23] MEDS: CEFTRIAXONE SOD 1 GM/NS 50 ML 50 ML IV SCH (05:45)
[2019-05-23] MEDS ORDERED: SODIUM CHLORIDE 0.9% 250ML 250 ML ONE (06:18)
--- NOTE | 2019-05-23 06:39 | NUR ---
PT C/O PAIN AND GIVEN ORDERED PAIN MEDICATION,CALL LIGHT WITH IN REACH ,CONTINUE TO MONITOR
--- NOTE | 2019-05-23 07:04 | NUR ---
BEDSIDE REPORT GIVEN TOT THE ONCOMING NURSE
[2019-05-23] MEDS: INSULIN LISPRO 100 UNIT/1 ML 3ML VIAL SQ SCH ×4 (07:30→20:31)
[2019-05-23 07:34] LABS: CLARITY,URINE SL CLOUDY (CLEAR); COLOR,URINE YELLOW (YELLOW); LEUKOCYTE ESTERASE ,URINE SMALL (NEGATIVE); NITRITE,URINE NEGATIVE (NEGATIVE)
[2019-05-23 07:35] LABS: PROTEIN,URINE DIPSTICK >=300 (NEGATIVE)
[2019-05-23 07:38] LABS: KETONES,URINE NEGATIVE (NEGATIVE); URINE UROBILINOGEN 0.2 mg/dL (0.2 - 1)
[2019-05-23 07:39] LABS: BILIRUBIN,URINE SMALL (NEGATIVE)
[2019-05-23] MEDS: ATORVASTATIN 20 MG TAB PO SCH (08:37)
[2019-05-23] MEDS: ASPIRIN 81 MG CHEW TAB PO SCH (08:37)
[2019-05-23] MEDS: CLOPIDOGREL BISULFATE 75 MG TAB PO SCH (08:37)
[2019-05-23] MEDS: FISH OIL PO SCH (08:37)
[2019-05-23] MEDS: UBIDECARENONE 200 MG PO SCH (08:37)
[2019-05-23] MEDS: SEVELAMER CARBONATE 800 MG TAB PO SCH ×3 (08:37→17:00)
[2019-05-23] MEDS: AMLODIPINE BESYLATE 10 MG TAB PO SCH (08:37)
[2019-05-23 08:38] LABS: BACTERIA,URINE FEW /HPF; EPITHELIAL CELLS,URINE RARE /LPF
[2019-05-23] MEDS: METOPROLOL SUCCINATE 25 MG TAB XL PO SCH (08:38)
[2019-05-23] MEDS: CHOLECALCIFEROL 1,000 UNIT TAB PO SCH (08:38)
--- NOTE | 2019-05-23 19:25 | NUR ---
Report given to oncoming nurse, walking rounds complete. Pt stable at this time.
--- NOTE | 2019-05-23 19:27 | NUR ---
Report given to oncoming nurse, walking rounds complete. Pt stable at this time.
[2019-05-23] MEDS: GUAIFENESIN 600MG/DEXTROMETHORPHAN 30MG TABSR PO SCH (20:26)
[2019-05-23] MEDS ORDERED: TRAMADOL HCL 50 MG TAB PO NR (20:30)
[2019-05-24] VITALS (7 sets, daily range): BP systolic 110–140; BP diastolic 64–80
[2019-05-24] MEDS: CEFTRIAXONE SOD 1 GM/NS 50 ML 50 ML IV SCH (04:38)
--- NOTE | 2019-05-24 05:33 | Discharge Summary ---
DISCHARGE DIAGNOSES: 1. Hypoglycemia. 2. Diabetes. HISTORY OF PRESENT ILLNESS AND HOSPITAL COURSE: The patient is a gentleman, who unfortunately had a hypoglycemic episode due to his more medications, so he was brought into the hospital. His regimen was all adjusted. He had no further episodes during hospitalization and his sugars maintained well. The patient was seen by Podiatry for followup on his recent TMA on his right foot and that was showing to have good healing results. The patient did have his dialysis while he was in the hospital. At the time of discharge, he was doing well. He was discharged home on a modified regimen of his diabetes regimen. He will follow up in about 2 weeks with me. Please see hospital chart for full details. MD RAYMOND Vilal/MODL /[id number]
[2019-05-24 06:21] LABS: BASOPHILS # (AUTO) 0.1 (0.0-0.1); BASOPHILS % 0.5 % (0.0-1.0); EOSINOPHILS # (AUTO) 0.6 (0.0-0.4); EOSINOPHILS % 6.6 % (0.0-6.0); HEMATOCRIT 31.1 % (38.2-49.6); HEMOGLOBIN 9.5 g/dL (14.0-18.0); LYMPHOCYTES % 10.6 % (18.0-39.1); MEAN CORPUSCULAR HEMOGLOBIN 32.9 pg (28-32); MEAN CORPUSCULAR HGB CONC 30.5 g/dL (31-35); MEAN CORPUSCULAR VOLUME 107.6 fL (81-99); MONOCYTES # (AUTO) 0.8 (0.2-0.8); MONOCYTES % 8.7 % (4.4-11.3); NEUTROPHILS # (AUTO) 6.6 (2.1-6.9); NEUTROPHILS % 72.8 % (38.7-80.0); PLATELET COUNT 168 x10e3/uL (140-360); RED BLOOD COUNT 2.89 x10e6/uL (4.3-5.7); RED CELL DISTRIBUTION WIDTH 21.2 % (11.7-14.4)
[2019-05-24 06:46] LABS: ANION GAP 17.5 mmol/L (8-16); CALCIUM 8.3 mg/dL (8.4-10.2); CREATININE, SERUM 6.22 mg/dL (0.72-1.25); POTASSIUM 4.5 mmol/L (3.5-5.1)
[2019-05-24] MEDS: INSULIN LISPRO 100 UNIT/1 ML 3ML VIAL SQ SCH ×2 (07:30→11:30)
[2019-05-24] MEDS: SEVELAMER CARBONATE 800 MG TAB PO SCH (08:28)
[2019-05-24] MEDS: ATORVASTATIN 20 MG TAB PO SCH (08:28)
[2019-05-24] MEDS: CLOPIDOGREL BISULFATE 75 MG TAB PO SCH (08:28)
[2019-05-24] MEDS: CHOLECALCIFEROL 1,000 UNIT TAB PO SCH (08:28)
[2019-05-24] MEDS: ASPIRIN 81 MG CHEW TAB PO SCH (08:28)
[2019-05-24] MEDS: FISH OIL PO SCH (08:28)
[2019-05-24] MEDS: UBIDECARENONE 200 MG PO SCH (08:28)
[2019-05-24] MEDS: GUAIFENESIN 600MG/DEXTROMETHORPHAN 30MG TABSR PO SCH (08:28)
[2019-05-24] MEDS: AMLODIPINE BESYLATE 10 MG TAB PO SCH (09:00)
[2019-05-24] MEDS: METOPROLOL SUCCINATE 25 MG TAB XL PO SCH (09:00)
[2019-05-24] MEDS ORDERED: SODIUM CHLORIDE 0.9% 1000ML 2,000 ML ONE (09:40)
--- NOTE | 2019-05-24 11:41 | NUR ---
patient is on Dialysis, stable
--- NOTE | 2019-05-24 15:33 | NUR ---
Patient discharged home, Done with Dialysis, not in any distress, IV canula removed with tip intact, no ss of infiltration, family at bed side to pick him. transported via wheelchair to [facility].
== END 2019-05-24 15:20 | disposition home health service (06) | DRG 637 ==
LOC: ER 16:14 → ERHOLD 18:27 → MED/SURG3 20:54 → OBSVTOIN 05-22 11:34
PROVIDERS: ADMIT Internal Medicine; ATTEND Internal Medicine
PROC: 5A1D70Z Performance of Urinary Filtration, Intermittent, Less than 6 Hours Per Day (ICD-10-PCS; principal; 2019-05-21)
PROC: 5A1D70Z Performance of Urinary Filtration, Intermittent, Less than 6 Hours Per Day (ICD-10-PCS; 2019-05-22)
PROC: 5A1D70Z Performance of Urinary Filtration, Intermittent, Less than 6 Hours Per Day (ICD-10-PCS; 2019-05-24)
DX: E11.649 Type 2 diabetes mellitus with hypoglycemia without coma (principal); G93.41 Metabolic encephalopathy; C95.90 Leukemia, unspecified not having achieved remission; M86.8X7 Other osteomyelitis, ankle and foot; I13.2 Hypertensive heart and chronic kidney disease with heart failure and with stage 5 chronic kidney disease, or end stage renal disease; E11.22 Type 2 diabetes mellitus with diabetic chronic kidney disease; N18.6 End stage renal disease; E11.21 Type 2 diabetes mellitus with diabetic nephropathy; E11.42 Type 2 diabetes mellitus with diabetic polyneuropathy; E11.69 Type 2 diabetes mellitus with other specified complication; E78.5 Hyperlipidemia, unspecified; Z99.2 Dependence on renal dialysis; Z89.431 Acquired absence of right foot; N25.81 Secondary hyperparathyroidism of renal origin; E78.00 Pure hypercholesterolemia, unspecified; E66.9 Obesity, unspecified; Z68.31 Body mass index [BMI] 31.0-31.9, adult; D63.1 Anemia in chronic kidney disease; I50.9 Heart failure, unspecified; Z79.82 Long term (current) use of aspirin; Z88.1 Allergy status to other antibiotic agents; Z83.3 Family history of diabetes mellitus; Z82.49 Family history of ischemic heart disease and other diseases of the circulatory system; Z88.8 Allergy status to other drugs, medicaments and biological substances
CPT/HCPCS: 36415; 70450; 71045; 80048; 80053; 81001; 82550; 82553; 82948; 83735; 84484; 85025; 85610; 85730; 86704; 86705; 86706; 87340; 90962; 99251; 99284; G0378; J0696; J1885; J2405; J7030; J7050; J7070; J7799

== ENCOUNTER → 2019-08-10 | Outpatient (CLI) | payer MEDICARE, OTHER ==
[2019-08-10 11:57] LABS: INR 0.96; PARTIAL THROMBOPLASTIN TIME 25.8 seconds (23.8-35.5); PROTHROMBIN TIME 13.3 seconds (11.9-14.5)
--- NOTE | 2019-08-10 12:58 | Diagnostic Imaging Report ---
Ultrasound guided thoracentesis History: Left pleural effusion Technique: Written informed consent was obtained after discussing risks, benefits, and alternatives of the procedure with the patient. Patient was brought to the ultrasound suite and placed on the table in upright position. Pre-procedural ultrasound demonstrates a left pleural effusion. Suitable percutaneous access site was chosen in the posterior left chest. Overlying skin was prepared and draped in the usual sterile fashion. Planned needle tract was anesthetized with dilute Lidocaine for local anesthesia. Using sonographic guidance, an 5 [place] Y[place]h needle was advanced into the left pleural effusion. Pharmacy Technician Instructor images saved in the patient's medical record. Needle was removed, and catheter was advanced. Subsequently, 1.0 L of clear yellow fluid was evacuated. Catheter was removed. Hemostasis achieved at puncture site by direct compression. The patient tolerated the procedure well. There were no complications. Post procedure chest radiograph was ordered. Impression: Technically successful sonographic guided left thoracentesis with evacuation of 1L of fluid. Signed by: Dr. Regan Rodriguez MD on 08/10/2019 12:54 PM
--- NOTE | 2019-08-10 13:10 | Diagnostic Imaging Report ---
EXAM: CHEST SINGLE (PORTABLE) DATE: 08/10/2019 12:49 PM INDICATION: Status post left thoracentesis COMPARISON: 05/20/2019 FINDINGS: There is no evidence for pneumothorax status post left thoracentesis. Trace residual left pleural effusion noted. There are are bibasilar opacities suggestive of atelectasis. There is no evidence for large focal consolidation. The cardiomediastinal silhouette is stable in appearance. No acute osseous abnormality is identified. IMPRESSION: No evidence for pneumothorax status post left-sided thoracentesis. Signed by: Dr. Regan Rodriguez MD on 08/10/2019 1:07 PM
--- NOTE | 2019-08-11 13:47 | NUR ---
called pt for followup s/o thoracentesis. pt states he feels much better and went to dialysis today without getting sob. thank for our care no complaints or questions
== END ==
LOC: US 11:17
PROVIDERS: ATTEND Internal Medicine
DX: J90 Pleural effusion, not elsewhere classified (principal)
CPT/HCPCS: 32555; 36415; 71045; 85014; 85049; 85610; 85730

== ENCOUNTER 2020-04-25 17:13 | Inpatient (IN) | payer MEDICARE, OTHER ==
[~2020-04-25] VITALS: Ht 172.7 cm; Wt 92.5 kg
[2020-04-25 19:51] LABS: BASOPHILS # (AUTO) 0.1 (0.0-0.1); BASOPHILS % 0.4 % (0.0-1.0); EOSINOPHILS # (AUTO) 0.1 (0.0-0.4); EOSINOPHILS % 0.5 % (0.0-6.0); HEMATOCRIT 28.3 % (38.2-49.6); LYMPHOCYTES # (AUTO) 0.8 (1.0-3.2); LYMPHOCYTES % 6.2 % (18.0-39.1); MEAN CORPUSCULAR HEMOGLOBIN 33.8 pg (28-32); MEAN CORPUSCULAR HGB CONC 31.8 g/dL (31-35); MEAN CORPUSCULAR VOLUME 106.4 fL (81-99); MONOCYTES # (AUTO) 0.7 (0.2-0.8); MONOCYTES % 5.1 % (4.4-11.3); NEUTROPHILS # (AUTO) 11.9 (2.1-6.9); NEUTROPHILS % 87.1 % (38.7-80.0); PLATELET COUNT 178 x10e3/uL (140-360); RED BLOOD COUNT 2.66 x10e6/uL (4.3-5.7); RED CELL DISTRIBUTION WIDTH 23.2 % (11.7-14.4)
[2020-04-25 20:08] LABS: ALBUMIN 3.6 g/dL (3.5-5.0); ANION GAP 21.7 mmol/L (8-16); CALCIUM 8.1 mg/dL (8.4-10.2); CREATININE, SERUM 9.94 mg/dL (0.72-1.25)
[2020-04-25 20:11] LABS: POTASSIUM 7.7 mmol/L (3.5-5.1)
[2020-04-25] MEDS ORDERED: SODIUM BICARBONATE 8.4% INJ 50 ML SYR IV STA (20:12)
[2020-04-25] MEDS ORDERED: DEXTROSE 50% SYRINGE 50 ML IV STA (20:12)
[2020-04-25 20:14] LABS: CREATINE KINASE MB 17.9 ng/mL (0-5.0)
[2020-04-25] MEDS ORDERED: SOD POLYSTYRENE SULFONATE SUSP 15 GM/60 ML BTL PO ONE (20:15)
[2020-04-25] MEDS ORDERED: CALCIUM GLUCONATE 10% INJ 13.95 MEQ in SODIUM CHLORIDE 0.9% 100 ML 100 ML IV ONE (20:15)
[2020-04-25] MEDS ORDERED: INSULIN REGULAR, HUMAN 100 UNIT/1 ML 3ML VIAL IV ONE (20:15)
[2020-04-25] MEDS ORDERED: CALCIUM GLUCONATE 10% INJ 0.465 MEQ/ML VIAL ONE (20:25)
[2020-04-25] MEDS ORDERED: DEXTROSE 50% SYRINGE 50 ML IV ONE (20:26)
[2020-04-25] MEDS ORDERED: SODIUM BICARBONATE 8.4% SYRING 50 ML ONE (20:26)
[2020-04-25] MEDS ORDERED: INSULIN REGULAR, HUMAN 100 UNIT/1 ML 3ML VIAL ONE (20:26)
[2020-04-25] MEDS ORDERED: SODIUM CHLORIDE 0.9% 100 ML ONE (20:27)
[2020-04-25] MEDS ORDERED: DEXTROSE 50% SYRINGE 50 ML IV PRN (20:45)
[2020-04-25] MEDS ORDERED: SODIUM CHLORIDE FLUSH 10 ML SYR INJ PRN (20:45)
[2020-04-25] MEDS ORDERED: VANCOMYCIN 1GM/NS 250 ML 250 ML IV ONE (20:45)
[2020-04-25] MEDS ORDERED: SOD POLYSTYRENE SULFONATE SUSP 15 GM/60 ML BTL ONE (20:49)
[2020-04-25] MEDS: ONDANSETRON HCL INJ 2MG/ML 2ML 2 MG/ML VIAL IV PRN (21:36)
[2020-04-25] MEDS ORDERED: ONDANSETRON HCL INJ 2MG/ML 2ML 2 MG/ML VIAL ONE (21:41)
[2020-04-25] MEDS: INSULIN REGULAR, HUMAN 100 UNIT/1 ML 3ML VIAL SQ SCH (21:50)
[2020-04-25] MEDS: PIPERACILLIN/TAZOBACTAM 2.25 GM in SODIUM CHLORIDE 0.9% 50ML 50 ML IV SCH (22:17)
[2020-04-25] MEDS ORDERED: PIPERACILLIN/TAZOBACTAM SOD 2.25 GM VIAL ONE (22:18)
[2020-04-25 22:54] VITALS: BP 95/82
[2020-04-25 23:00] VITALS: BP 95/82
[2020-04-26] VITALS (7 sets, daily range): BP systolic 118–153; BP diastolic 76–94
[2020-04-26] MEDS: INSULIN REGULAR, HUMAN 100 UNIT/1 ML 3ML VIAL SQ SCH ×4 (07:30→21:00)
[2020-04-26 07:41] LABS: BASOPHILS # (AUTO) 0.1 (0.0-0.1); BASOPHILS % 0.5 % (0.0-1.0); EOSINOPHILS # (AUTO) 0.1 (0.0-0.4); EOSINOPHILS % 0.6 % (0.0-6.0); HEMATOCRIT 28.2 % (38.2-49.6); LYMPHOCYTES # (AUTO) 0.9 (1.0-3.2); LYMPHOCYTES % 6.7 % (18.0-39.1); MEAN CORPUSCULAR HEMOGLOBIN 33.7 pg (28-32); MEAN CORPUSCULAR HGB CONC 31.9 g/dL (31-35); MEAN CORPUSCULAR VOLUME 105.6 fL (81-99); MONOCYTES # (AUTO) 1.2 (0.2-0.8); MONOCYTES % 8.3 % (4.4-11.3); NEUTROPHILS # (AUTO) 11.6 (2.1-6.9); NEUTROPHILS % 82.9 % (38.7-80.0); PLATELET COUNT 192 x10e3/uL (140-360); RED BLOOD COUNT 2.67 x10e6/uL (4.3-5.7); RED CELL DISTRIBUTION WIDTH 23.6 % (11.7-14.4)
[2020-04-26 08:05] LABS: ALBUMIN 3.2 g/dL (3.5-5.0); ANION GAP 22.4 mmol/L (8-16); CALCIUM 8.2 mg/dL (8.4-10.2); CREATININE, SERUM 7.75 mg/dL (0.72-1.25)
[2020-04-26 08:08] LABS: POTASSIUM 5.4 mmol/L (3.5-5.1)
[2020-04-26] MEDS: SEVELAMER CARBONATE 800 MG TAB PO SCH ×3 (08:20→17:12)
[2020-04-26] MEDS ORDERED: PIPERACILLIN/TAZOBACTAM SOD 2.25 GM VIAL ONE ×2 (08:52→22:20)
[2020-04-26] MEDS ORDERED: SODIUM CHLORIDE 0.9% 50ML 50 ML ONE (08:53)
[2020-04-26] MEDS: METOPROLOL SUCCINATE 25 MG TAB XL PO SCH (09:00)
[2020-04-26] MEDS: AMLODIPINE BESYLATE 10 MG TAB PO SCH (09:00)
[2020-04-26] MEDS: PIPERACILLIN/TAZOBACTAM 2.25 GM in SODIUM CHLORIDE 0.9% 50ML 50 ML IV SCH ×2 (09:22→21:00)
[2020-04-26] MEDS: ASPIRIN 81 MG CHEW TAB PO SCH (09:22)
[2020-04-26] MEDS: ATORVASTATIN 20 MG TAB PO SCH (09:22)
[2020-04-26] MEDS: CLOPIDOGREL BISULFATE 75 MG TAB PO SCH (09:22)
[2020-04-26] MEDS: TRAMADOL HCL 50 MG TAB PO PRN ×2 (16:30→22:42)
[2020-04-27] VITALS (8 sets, daily range): BP systolic 97–153; BP diastolic 75–85
[2020-04-27] MEDS: TRAMADOL HCL 50 MG TAB PO PRN ×2 (02:50→11:26)
[2020-04-27] MEDS: INSULIN REGULAR, HUMAN 100 UNIT/1 ML 3ML VIAL SQ SCH ×4 (07:30→20:47)
[2020-04-27] MEDS: SEVELAMER CARBONATE 800 MG TAB PO SCH ×3 (08:00→16:30)
[2020-04-27] MEDS ORDERED: PIPERACILLIN/TAZOBACTAM SOD 2.25 GM VIAL ONE ×2 (08:30→21:38)
[2020-04-27] MEDS: PIPERACILLIN/TAZOBACTAM 2.25 GM in SODIUM CHLORIDE 0.9% 50ML 50 ML IV SCH ×2 (09:00→21:45)
[2020-04-27] MEDS: CLOPIDOGREL BISULFATE 75 MG TAB PO SCH (09:00)
[2020-04-27] MEDS: ASPIRIN 81 MG CHEW TAB PO SCH (09:00)
[2020-04-27] MEDS: METOPROLOL SUCCINATE 25 MG TAB XL PO SCH (09:00)
[2020-04-27] MEDS: MUPIROCIN 2% OINT 22 GM TUBE TOP SCH (09:00)
[2020-04-27] MEDS: AMLODIPINE BESYLATE 10 MG TAB PO SCH (09:00)
[2020-04-27] MEDS: ATORVASTATIN 20 MG TAB PO SCH (09:00)
[2020-04-27] MEDS ORDERED: SODIUM CHLORIDE 0.9% 50ML 50 ML ONE ×2 (09:34→21:38)
[2020-04-27] MEDS: ONDANSETRON HCL INJ 2MG/ML 2ML 2 MG/ML VIAL IV PRN (11:23)
[2020-04-28] VITALS: BP_SYST 107; BP_SYST 215; BP_DIAS 153; BP_DIAS 71
[2020-04-28] MEDS: TRAMADOL HCL 50 MG TAB PO PRN ×2 (02:52→11:15)
[2020-04-28 04:00] VITALS: BP 154/89
[2020-04-28] MEDS: INSULIN REGULAR, HUMAN 100 UNIT/1 ML 3ML VIAL SQ SCH ×4 (07:30→21:00)
[2020-04-28] MEDS ORDERED: PIPERACILLIN/TAZOBACTAM SOD 2.25 GM VIAL ONE ×2 (07:37→21:28)
[2020-04-28 08:00] VITALS: BP 154/89
[2020-04-28] MEDS: SEVELAMER CARBONATE 800 MG TAB PO SCH ×3 (08:00→17:00)
[2020-04-28] MEDS: MUPIROCIN 2% OINT 22 GM TUBE TOP SCH (09:00)
[2020-04-28] MEDS: ATORVASTATIN 20 MG TAB PO SCH (09:00)
[2020-04-28] MEDS: METOPROLOL SUCCINATE 25 MG TAB XL PO SCH (09:00)
[2020-04-28] MEDS: PIPERACILLIN/TAZOBACTAM 2.25 GM in SODIUM CHLORIDE 0.9% 50ML 50 ML IV SCH ×2 (09:00→21:00)
[2020-04-28] MEDS: ASPIRIN 81 MG CHEW TAB PO SCH (09:00)
[2020-04-28] MEDS: AMLODIPINE BESYLATE 10 MG TAB PO SCH (09:00)
[2020-04-28] MEDS: CLOPIDOGREL BISULFATE 75 MG TAB PO SCH (09:00)
[2020-04-28] MEDS ORDERED: SODIUM CHLORIDE 0.9% 50ML 150 ML ONE (09:27)
[2020-04-28 10:00] VITALS: BP 120/75
[2020-04-28] MEDS ORDERED: SODIUM CHLORIDE 0.9% 100 ML ONE (15:15)
[2020-04-28] MEDS ORDERED: IOPAMIDOL 370 MG/ML 200 ML INFUS..BTL INJ ONE (15:16)
[2020-04-28 20:00] VITALS: BP 105/72
[2020-04-28 21:00] VITALS: BP 105/72
[2020-04-28] MEDS ORDERED: SODIUM CHLORIDE 0.9% 50ML 50 ML ONE (21:33)
[2020-04-29] VITALS (7 sets, daily range): BP systolic 99–150; BP diastolic 62–90
[2020-04-29] MEDS: INSULIN REGULAR, HUMAN 100 UNIT/1 ML 3ML VIAL SQ SCH ×4 (07:30→21:00)
[2020-04-29] MEDS: SEVELAMER CARBONATE 800 MG TAB PO SCH ×3 (08:00→17:27)
[2020-04-29] MEDS ORDERED: SODIUM CHLORIDE 0.9% 50ML 50 ML ONE (08:23)
[2020-04-29] MEDS ORDERED: PIPERACILLIN/TAZOBACTAM SOD 2.25 GM VIAL ONE ×2 (08:23→19:40)
[2020-04-29] MEDS ORDERED: SODIUM CHLORIDE 0.9% 1000ML 2,000 ML ONE (08:33)
[2020-04-29 08:51] LABS: BASOPHILS # (AUTO) 0.1 (0.0-0.1); BASOPHILS % 0.7 % (0.0-1.0); EOSINOPHILS # (AUTO) 0.2 (0.0-0.4); EOSINOPHILS % 1.5 % (0.0-6.0); HEMATOCRIT 26.9 % (38.2-49.6); HEMOGLOBIN 8.3 g/dL (14.0-18.0); LYMPHOCYTES # (AUTO) 0.9 (1.0-3.2); LYMPHOCYTES % 6.3 % (18.0-39.1); MEAN CORPUSCULAR HEMOGLOBIN 33.6 pg (28-32); MEAN CORPUSCULAR HGB CONC 30.9 g/dL (31-35); MEAN CORPUSCULAR VOLUME 108.9 fL (81-99); MONOCYTES # (AUTO) 0.8 (0.2-0.8); MONOCYTES % 6.2 % (4.4-11.3); NEUTROPHILS # (AUTO) 11.4 (2.1-6.9); NEUTROPHILS % 84.2 % (38.7-80.0); PLATELET COUNT 191 x10e3/uL (140-360); RED BLOOD COUNT 2.47 x10e6/uL (4.3-5.7); RED CELL DISTRIBUTION WIDTH 23.7 % (11.7-14.4)
[2020-04-29 09:01] LABS: ANION GAP 24.6 mmol/L (8-16); CALCIUM 8.2 mg/dL (8.4-10.2); CREATININE, SERUM 10.23 mg/dL (0.72-1.25)
[2020-04-29 09:14] LABS: POTASSIUM 6.6 mmol/L (3.5-5.1)
[2020-04-29] MEDS: CLOPIDOGREL BISULFATE 75 MG TAB PO SCH (13:25)
[2020-04-29] MEDS: PIPERACILLIN/TAZOBACTAM 2.25 GM in SODIUM CHLORIDE 0.9% 50ML 50 ML IV SCH ×2 (13:25→20:49)
[2020-04-29] MEDS: ASPIRIN 81 MG CHEW TAB PO SCH (13:25)
[2020-04-29] MEDS: ATORVASTATIN 20 MG TAB PO SCH (13:25)
[2020-04-29] MEDS: AMLODIPINE BESYLATE 10 MG TAB PO SCH (13:25)
[2020-04-29] MEDS: MUPIROCIN 2% OINT 22 GM TUBE TOP SCH (13:26)
[2020-04-29] MEDS: METOPROLOL SUCCINATE 25 MG TAB XL PO SCH (13:26)
[2020-04-29 17:16] LABS: ABG HCO3 29 mmol/L (22-26); ABG PCO2 45 mmHg (35-45); ABG PH 7.42 (7.35-7.45); ABG PO2 57 mmHg (80-105); ABG TCO2 31
[2020-04-29] MEDS: LACTULOSE SYRUP 20 GM/30 ML UDC PO SCH (17:27)
[2020-04-29 19:29] LABS: ABG HCO3 29 mmol/L (22-26); ABG PCO2 46 mmHg (35-45); ABG PH 7.41 (7.35-7.45); ABG PO2 129 mmHg (80-105); ABG TCO2 30
[2020-04-30] VITALS (7 sets, daily range): BP systolic 108–132; BP diastolic 56–95
[2020-04-30] MEDS: TRAMADOL HCL 50 MG TAB PO PRN ×2 (01:01→05:33)
[2020-04-30] MEDS: LACTULOSE SYRUP 20 GM/30 ML UDC PO SCH ×4 (05:22→16:54)
[2020-04-30 05:54] LABS: BASOPHILS # (AUTO) 0.1 (0.0-0.1); BASOPHILS % 0.4 % (0.0-1.0); EOSINOPHILS # (AUTO) 0.3 (0.0-0.4); EOSINOPHILS % 2.2 % (0.0-6.0); HEMATOCRIT 25.3 % (38.2-49.6); LYMPHOCYTES # (AUTO) 0.6 (1.0-3.2); LYMPHOCYTES % 5.3 % (18.0-39.1); MEAN CORPUSCULAR HGB CONC 31.6 g/dL (31-35); MEAN CORPUSCULAR VOLUME 107.7 fL (81-99); MONOCYTES # (AUTO) 0.7 (0.2-0.8); MONOCYTES % 5.6 % (4.4-11.3); NEUTROPHILS # (AUTO) 10.1 (2.1-6.9); NEUTROPHILS % 84.6 % (38.7-80.0); PLATELET COUNT 188 x10e3/uL (140-360); RED BLOOD COUNT 2.35 x10e6/uL (4.3-5.7); RED CELL DISTRIBUTION WIDTH 23.6 % (11.7-14.4)
[2020-04-30 06:16] LABS: ALBUMIN 2.9 g/dL (3.5-5.0); ALBUMIN/GLOBULIN RATIO 0.9 (0.8-2.0); ANION GAP 19.7 mmol/L (8-16); CALCIUM 8.3 mg/dL (8.4-10.2); CREATININE, SERUM 6.46 mg/dL (0.72-1.25); POTASSIUM 4.7 mmol/L (3.5-5.1)
[2020-04-30] MEDS: INSULIN REGULAR, HUMAN 100 UNIT/1 ML 3ML VIAL SQ SCH ×4 (07:30→20:30)
[2020-04-30] MEDS ORDERED: PIPERACILLIN/TAZOBACTAM SOD 2.25 GM VIAL ONE ×2 (08:26→20:41)
[2020-04-30] MEDS ORDERED: SODIUM CHLORIDE 0.9% 50ML 50 ML ONE ×2 (08:27→20:42)
[2020-04-30] MEDS: SEVELAMER CARBONATE 800 MG TAB PO SCH ×3 (10:29→16:54)
[2020-04-30] MEDS: ATORVASTATIN 20 MG TAB PO SCH (10:29)
[2020-04-30] MEDS: PIPERACILLIN/TAZOBACTAM 2.25 GM in SODIUM CHLORIDE 0.9% 50ML 50 ML IV SCH ×2 (10:29→21:00)
[2020-04-30] MEDS: ASPIRIN 81 MG CHEW TAB PO SCH (10:29)
[2020-04-30] MEDS: METOPROLOL SUCCINATE 25 MG TAB XL PO SCH (10:30)
[2020-04-30] MEDS: AMLODIPINE BESYLATE 10 MG TAB PO SCH (10:30)
[2020-04-30] MEDS: MUPIROCIN 2% OINT 22 GM TUBE TOP SCH (10:30)
[2020-04-30] MEDS: CLOPIDOGREL BISULFATE 75 MG TAB PO SCH (10:30)
[2020-04-30] MEDS ORDERED: SODIUM CHLORIDE 0.9% 250ML 250 ML IV ONE (10:45)
[2020-04-30] MEDS: DEXAMETHASONE SOD PHOS 10 MG/1 ML VIAL IV SCH (13:48)
[2020-05-01] VITALS (10 sets, daily range): BP systolic 120–147; BP diastolic 45–100
[2020-05-01] MEDS: LACTULOSE SYRUP 20 GM/30 ML UDC PO SCH ×4 (00:17→18:00)
[2020-05-01] MEDS: TRAMADOL HCL 50 MG TAB PO PRN (01:30)
[2020-05-01 06:35] LABS: BASOPHILS # (AUTO) 0.1 (0.0-0.1); BASOPHILS % 0.6 % (0.0-1.0); EOSINOPHILS # (AUTO) 0.3 (0.0-0.4); EOSINOPHILS % 3.1 % (0.0-6.0); HEMATOCRIT 28.1 % (38.2-49.6); HEMOGLOBIN 8.9 g/dL (14.0-18.0); LYMPHOCYTES # (AUTO) 0.6 (1.0-3.2); MEAN CORPUSCULAR HEMOGLOBIN 32.7 pg (28-32); MEAN CORPUSCULAR HGB CONC 31.7 g/dL (31-35); MONOCYTES # (AUTO) 0.7 (0.2-0.8); NEUTROPHILS # (AUTO) 8.5 (2.1-6.9); NEUTROPHILS % 81.8 % (38.7-80.0); PLATELET COUNT 173 x10e3/uL (140-360); RED BLOOD COUNT 2.72 x10e6/uL (4.3-5.7); RED CELL DISTRIBUTION WIDTH 25.2 % (11.7-14.4)
[2020-05-01] MEDS ORDERED: BUPIVACAINE HCL 0.5% INJ 30 ML VIAL INJ ONE (06:45)
[2020-05-01] MEDS ORDERED: LIDOCAINE HCL 1% LOCAL INJ 20 ML VIAL ONE (06:45)
[2020-05-01] MEDS ORDERED: BETAMETHASONE DISODIUM PHOS 6 MG/ML VIAL ONE (06:45)
[2020-05-01 06:46] LABS: MEAN CORPUSCULAR VOLUME 103.3 fL (81-99)
[2020-05-01 06:52] LABS: ALBUMIN/GLOBULIN RATIO 0.9 (0.8-2.0); CALCIUM 8.3 mg/dL (8.4-10.2); CREATININE, SERUM 7.6 mg/dL (0.72-1.25)
[2020-05-01] MEDS: INSULIN REGULAR, HUMAN 100 UNIT/1 ML 3ML VIAL SQ SCH ×4 (07:30→21:00)
[2020-05-01] MEDS: SEVELAMER CARBONATE 800 MG TAB PO SCH ×3 (08:00→17:16)
[2020-05-01] MEDS: METOPROLOL SUCCINATE 25 MG TAB XL PO SCH (09:00)
[2020-05-01] MEDS: AMLODIPINE BESYLATE 10 MG TAB PO SCH (09:00)
[2020-05-01] MEDS: ASPIRIN 81 MG CHEW TAB PO SCH (09:00)
[2020-05-01] MEDS: CLOPIDOGREL BISULFATE 75 MG TAB PO SCH (09:00)
[2020-05-01] MEDS: ATORVASTATIN 20 MG TAB PO SCH (09:45)
[2020-05-01] MEDS: DEXAMETHASONE SOD PHOS 10 MG/1 ML VIAL IV SCH (09:45)
[2020-05-01] MEDS: PIPERACILLIN/TAZOBACTAM 2.25 GM in SODIUM CHLORIDE 0.9% 50ML 50 ML IV SCH ×2 (09:45→22:42)
[2020-05-01] MEDS ORDERED: PIPERACILLIN/TAZOBACTAM SOD 2.25 GM VIAL ONE ×2 (10:08→22:15)
[2020-05-01] MEDS: MUPIROCIN 2% OINT 22 GM TUBE TOP SCH (10:23)
[2020-05-01] MEDS ORDERED: SODIUM CHLORIDE 0.9% 50ML 50 ML ONE ×2 (10:35→22:15)
[2020-05-01] MEDS ORDERED: SEVOFLURANE INHAL SOLN 250 ML PEN BTL ONE (12:55)
[2020-05-01] MEDS ORDERED: LIDOCAINE HCL 2% LOCAL INJ 5 ML SDV VIAL INJ ONE (12:55)
[2020-05-01] MEDS ORDERED: PROPOFOL IV EMULSION 10 MG/ML 20 ML VIAL ONE (12:55)
[2020-05-01] MEDS ORDERED: SODIUM CHLORIDE 0.9% 1000ML 2,000 ML ONE (14:15)
[2020-05-01] MEDS ORDERED: SODIUM CHLORIDE 0.9% 1000ML 2,000 ML IV PRN (14:15)
[2020-05-01] MEDS ORDERED: ALBUMIN 25% 12.5GM 0.25 GM/ML BTL IV PRN (14:15)
[2020-05-01] MEDS ORDERED: SODIUM CHLORIDE 0.9% 250ML 750 ML IV PRN (14:15)
[2020-05-02] VITALS (9 sets, daily range): BP systolic 115–130; BP diastolic 71–94
[2020-05-02] MEDS: LACTULOSE SYRUP 20 GM/30 ML UDC PO SCH ×5 (06:30→23:03)
[2020-05-02] MEDS: INSULIN REGULAR, HUMAN 100 UNIT/1 ML 3ML VIAL SQ SCH ×4 (08:30→20:35)
[2020-05-02] MEDS: ASPIRIN 81 MG CHEW TAB PO SCH (08:35)
[2020-05-02] MEDS: ATORVASTATIN 20 MG TAB PO SCH (08:35)
[2020-05-02] MEDS: MUPIROCIN 2% OINT 22 GM TUBE TOP SCH (08:36)
[2020-05-02] MEDS: CLOPIDOGREL BISULFATE 75 MG TAB PO SCH (08:36)
[2020-05-02] MEDS: METOPROLOL SUCCINATE 25 MG TAB XL PO SCH (08:36)
[2020-05-02] MEDS: AMLODIPINE BESYLATE 10 MG TAB PO SCH (08:36)
[2020-05-02] MEDS: DEXAMETHASONE SOD PHOS 10 MG/1 ML VIAL IV SCH (08:37)
[2020-05-02] MEDS: PIPERACILLIN/TAZOBACTAM 2.25 GM in SODIUM CHLORIDE 0.9% 50ML 50 ML IV SCH ×2 (08:37→20:45)
[2020-05-02] MEDS: SEVELAMER CARBONATE 800 MG TAB PO SCH ×3 (08:37→17:14)
[2020-05-02] MEDS: TRAMADOL HCL 50 MG TAB PO PRN (13:27)
[2020-05-02] MEDS ORDERED: SODIUM CHLORIDE 0.9% 250ML 250 ML ONE (20:50)
[2020-05-03] VITALS (7 sets, daily range): BP systolic 138–160; BP diastolic 80–93
[2020-05-03] MEDS: TRAMADOL HCL 50 MG TAB PO PRN (01:17)
[2020-05-03] MEDS: LACTULOSE SYRUP 20 GM/30 ML UDC PO SCH ×4 (05:35→23:56)
[2020-05-03] MEDS: ASPIRIN 81 MG CHEW TAB PO SCH (08:29)
[2020-05-03] MEDS: SEVELAMER CARBONATE 800 MG TAB PO SCH ×3 (08:29→17:12)
[2020-05-03] MEDS: CLOPIDOGREL BISULFATE 75 MG TAB PO SCH (08:29)
[2020-05-03] MEDS: ATORVASTATIN 20 MG TAB PO SCH (08:29)
[2020-05-03] MEDS: PIPERACILLIN/TAZOBACTAM 2.25 GM in SODIUM CHLORIDE 0.9% 50ML 50 ML IV SCH ×2 (08:29→20:35)
[2020-05-03] MEDS: DEXAMETHASONE SOD PHOS 10 MG/1 ML VIAL IV SCH (08:29)
[2020-05-03] MEDS: AMLODIPINE BESYLATE 10 MG TAB PO SCH (09:00)
[2020-05-03] MEDS: METOPROLOL SUCCINATE 25 MG TAB XL PO SCH (09:00)
[2020-05-03] MEDS: INSULIN REGULAR, HUMAN 100 UNIT/1 ML 3ML VIAL SQ SCH ×4 (09:04→20:41)
[2020-05-03] MEDS: MUPIROCIN 2% OINT 22 GM TUBE TOP SCH (09:44)
[2020-05-03] MEDS ORDERED: INSULIN LISPRO 100 UNIT/1 ML 3ML VIAL SQ ONE (20:45)
[2020-05-04] VITALS (8 sets, daily range): BP systolic 126–177; BP diastolic 76–105
[2020-05-04] MEDS: LACTULOSE SYRUP 20 GM/30 ML UDC PO SCH ×4 (05:09→22:40)
[2020-05-04 05:59] LABS: BASOPHILS # (AUTO) 0.1 (0.0-0.1); BASOPHILS % 0.3 % (0.0-1.0); EOSINOPHILS # (AUTO) 0.1 (0.0-0.4); EOSINOPHILS % 0.3 % (0.0-6.0); HEMATOCRIT 32.6 % (38.2-49.6); HEMOGLOBIN 10.1 g/dL (14.0-18.0); LYMPHOCYTES # (AUTO) 1.2 (1.0-3.2); LYMPHOCYTES % 8.1 % (18.0-39.1); MEAN CORPUSCULAR HEMOGLOBIN 32.6 pg (28-32); MEAN CORPUSCULAR VOLUME 105.2 fL (81-99); MONOCYTES # (AUTO) 0.8 (0.2-0.8); MONOCYTES % 5.1 % (4.4-11.3); NEUTROPHILS # (AUTO) 12.8 (2.1-6.9); NEUTROPHILS % 83.8 % (38.7-80.0); PLATELET COUNT 182 x10e3/uL (140-360); RED CELL DISTRIBUTION WIDTH 22.9 % (11.7-14.4)
[2020-05-04] MEDS ORDERED: ALBUTEROL SULFATE HFA 8GM INHALATION AEROSOL INH PRN (07:30)
[2020-05-04] MEDS: INSULIN REGULAR, HUMAN 100 UNIT/1 ML 3ML VIAL SQ SCH ×4 (07:30→21:30)
[2020-05-04] MEDS: CLOPIDOGREL BISULFATE 75 MG TAB PO SCH (09:56)
[2020-05-04] MEDS: PIPERACILLIN/TAZOBACTAM 2.25 GM in SODIUM CHLORIDE 0.9% 50ML 50 ML IV SCH ×2 (09:56→21:37)
[2020-05-04] MEDS: DEXAMETHASONE SOD PHOS 10 MG/1 ML VIAL IV SCH (09:56)
[2020-05-04] MEDS: SEVELAMER CARBONATE 800 MG TAB PO SCH ×3 (09:56→17:15)
[2020-05-04] MEDS: ATORVASTATIN 20 MG TAB PO SCH (09:56)
[2020-05-04] MEDS: AMLODIPINE BESYLATE 10 MG TAB PO SCH (09:56)
[2020-05-04] MEDS: ASPIRIN 81 MG CHEW TAB PO SCH (09:56)
[2020-05-04] MEDS: METOPROLOL SUCCINATE 25 MG TAB XL PO SCH (09:57)
[2020-05-04] MEDS: HYDROCODONE/APAP 5MG-325MG TAB PO PRN (22:41)
[2020-05-05] VITALS (8 sets, daily range): BP systolic 110–145; BP diastolic 78–92
[2020-05-05] MEDS: LACTULOSE SYRUP 20 GM/30 ML UDC PO SCH ×4 (05:14→20:44)
[2020-05-05 06:29] LABS: BASOPHILS % 0.2 % (0.0-1.0); EOSINOPHILS % 0.2 % (0.0-6.0); HEMOGLOBIN 9.4 g/dL (14.0-18.0); LYMPHOCYTES # (AUTO) 1.2 (1.0-3.2); LYMPHOCYTES % 8.6 % (18.0-39.1); MEAN CORPUSCULAR HEMOGLOBIN 35.2 pg (28-32); MEAN CORPUSCULAR HGB CONC 32.4 g/dL (31-35); MEAN CORPUSCULAR VOLUME 108.6 fL (81-99); MONOCYTES # (AUTO) 0.8 (0.2-0.8); MONOCYTES % 5.6 % (4.4-11.3); NEUTROPHILS # (AUTO) 11.2 (2.1-6.9); PLATELET COUNT 163 x10e3/uL (140-360); RED BLOOD COUNT 2.67 x10e6/uL (4.3-5.7); RED CELL DISTRIBUTION WIDTH 23.4 % (11.7-14.4)
[2020-05-05 07:07] LABS: CALCIUM 8.1 mg/dL (8.4-10.2); CREATININE, SERUM 5.22 mg/dL (0.72-1.25)
[2020-05-05] MEDS: INSULIN REGULAR, HUMAN 100 UNIT/1 ML 3ML VIAL SQ SCH ×4 (07:30→21:45)
[2020-05-05] MEDS: DEXAMETHASONE SOD PHOS 10 MG/1 ML VIAL IV SCH (09:03)
[2020-05-05] MEDS: SEVELAMER CARBONATE 800 MG TAB PO SCH ×3 (09:03→17:19)
[2020-05-05] MEDS: PIPERACILLIN/TAZOBACTAM 2.25 GM in SODIUM CHLORIDE 0.9% 50ML 50 ML IV SCH (09:04)
[2020-05-05] MEDS: ATORVASTATIN 20 MG TAB PO SCH (09:04)
[2020-05-05] MEDS: ASPIRIN 81 MG CHEW TAB PO SCH (09:04)
[2020-05-05] MEDS: AMLODIPINE BESYLATE 10 MG TAB PO SCH (09:04)
[2020-05-05] MEDS: METOPROLOL SUCCINATE 25 MG TAB XL PO SCH (09:05)
[2020-05-05] MEDS: CLOPIDOGREL BISULFATE 75 MG TAB PO SCH (09:05)
[2020-05-05] MEDS: HYDROCODONE/APAP 5MG-325MG TAB PO PRN (21:30)
[2020-05-06] VITALS: BP 128/97
[2020-05-06] MEDS: LACTULOSE SYRUP 20 GM/30 ML UDC PO SCH ×2 (00:16→12:00)
[2020-05-06 04:00] VITALS: BP 132/68
[2020-05-06] MEDS: INSULIN REGULAR, HUMAN 100 UNIT/1 ML 3ML VIAL SQ SCH ×2 (07:51→11:30)
[2020-05-06] MEDS: SEVELAMER CARBONATE 800 MG TAB PO SCH ×2 (08:00→13:29)
[2020-05-06 08:36] VITALS: BP 118/88
[2020-05-06 08:39] VITALS: BP 118/88
[2020-05-06 12:21] VITALS: BP 167/90
[2020-05-06] MEDS: DEXAMETHASONE SOD PHOS 10 MG/1 ML VIAL IV SCH (13:28)
[2020-05-06] MEDS: ATORVASTATIN 20 MG TAB PO SCH (13:28)
[2020-05-06] MEDS: ASPIRIN 81 MG CHEW TAB PO SCH (13:28)
[2020-05-06] MEDS: CLOPIDOGREL BISULFATE 75 MG TAB PO SCH (13:29)
[2020-05-06] MEDS: AMLODIPINE BESYLATE 10 MG TAB PO SCH (13:29)
[2020-05-06] MEDS: METOPROLOL SUCCINATE 25 MG TAB XL PO SCH (13:30)
== END 2020-05-06 15:30 | disposition home or self-care (01) | DRG 239 ==
LOC: ER 17:55 → ERHOLD 20:47 → MED/SURG3 22:55 → IMCU 05-01 23:27
PROVIDERS: ADMIT Internal Medicine; ATTEND Internal Medicine
PROC: 5A1D70Z Performance of Urinary Filtration, Intermittent, Less than 6 Hours Per Day (ICD-10-PCS; 2020-04-26)
PROC: 0KBV0ZZ Excision of Right Foot Muscle, Open Approach (ICD-10-PCS; 2020-04-27)
PROC: 0Y6Q0Z0 Detachment at Left 1st Toe, Complete, Open Approach (ICD-10-PCS; principal; 2020-04-28)
PROC: 0Y6N0Z9 Detachment at Left Foot, Partial 1st Ray, Open Approach (ICD-10-PCS; 2020-04-28)
PROC: 5A1D70Z Performance of Urinary Filtration, Intermittent, Less than 6 Hours Per Day (ICD-10-PCS; 2020-04-29)
PROC: 30233N1 Transfusion of Nonautologous Red Blood Cells into Peripheral Vein, Percutaneous Approach (ICD-10-PCS; 2020-04-30)
PROC: 5A1D70Z Performance of Urinary Filtration, Intermittent, Less than 6 Hours Per Day (ICD-10-PCS; 2020-05-01)
PROC: 5A1D70Z Performance of Urinary Filtration, Intermittent, Less than 6 Hours Per Day (ICD-10-PCS; 2020-05-03)
PROC: 5A1D70Z Performance of Urinary Filtration, Intermittent, Less than 6 Hours Per Day (ICD-10-PCS; 2020-05-06)
DX: E11.52 Type 2 diabetes mellitus with diabetic peripheral angiopathy with gangrene (principal); U07.1 COVID-19; J12.82 Pneumonia due to coronavirus disease 2019; N18.6 End stage renal disease; G93.41 Metabolic encephalopathy; I96 Gangrene, not elsewhere classified; L03.116 Cellulitis of left lower limb; M86.172 Other acute osteomyelitis, left ankle and foot; I70.262 Atherosclerosis of native arteries of extremities with gangrene, left leg; E11.69 Type 2 diabetes mellitus with other specified complication; L03.032 Cellulitis of left toe; D64.9 Anemia, unspecified; E87.5 Hyperkalemia; E11.621 Type 2 diabetes mellitus with foot ulcer; Z85.6 Personal history of leukemia; Z88.8 Allergy status to other drugs, medicaments and biological substances; Z82.49 Family history of ischemic heart disease and other diseases of the circulatory system; L97.529 Non-pressure chronic ulcer of other part of left foot with unspecified severity; E11.22 Type 2 diabetes mellitus with diabetic chronic kidney disease; Z99.2 Dependence on renal dialysis; E78.5 Hyperlipidemia, unspecified; E11.42 Type 2 diabetes mellitus with diabetic polyneuropathy; Z83.3 Family history of diabetes mellitus; I72.2 Aneurysm of renal artery; G25.3 Myoclonus; B96.89 Other specified bacterial agents as the cause of diseases classified elsewhere; B96.4 Proteus (mirabilis) (morganii) as the cause of diseases classified elsewhere; B95.2 Enterococcus as the cause of diseases classified elsewhere; E66.9 Obesity, unspecified; Z68.31 Body mass index [BMI] 31.0-31.9, adult; L97.524 Non-pressure chronic ulcer of other part of left foot with necrosis of bone
CPT/HCPCS: 36415; 36600; 70450; 71045; 75635; 80048; 80053; 82140; 82550; 82553; 82805; 82948; 83880; 84484; 85025; 86140; 86704; 86706; 86850; 86900; 86920; 87040; 87071; 87075; 87186; 87205; 87340; 88305; 88311; 90962; 93005; 93925; 96372; 97139; 99284; J0610; J0720; J1100; J1817; J2001; J2405; J2543; J7030; J7050; J7799; P9016; Q9967; U0002

== ENCOUNTER 2020-08-12 16:00 | Inpatient (IN) | payer MEDICARE, OTHER ==
[~2020-08-12] VITALS: Ht 172.7 cm; Wt 92.5 kg
[2020-08-12] MEDS ORDERED: SODIUM CHLORIDE 0.9% 1000ML 1,000 ML IV STA ×2 (17:06→17:28)
[2020-08-12] MEDS ORDERED: MORPHINE SULFATE INJ 2 MG/ML SYR IV PRN (17:30)
[2020-08-12 17:44] LABS: BASOPHILS # (AUTO) 0.1 (0.0-0.1); BASOPHILS % 0.7 % (0.0-1.0); EOSINOPHILS # (AUTO) 0.1 (0.0-0.4); EOSINOPHILS % 0.9 % (0.0-6.0); HEMATOCRIT 30.8 % (38.2-49.6); HEMOGLOBIN 9.6 g/dL (14.0-18.0); LYMPHOCYTES # (AUTO) 0.7 (1.0-3.2); LYMPHOCYTES % 5.4 % (18.0-39.1); MEAN CORPUSCULAR HEMOGLOBIN 30.6 pg (28-32); MEAN CORPUSCULAR HGB CONC 31.2 g/dL (31-35); MEAN CORPUSCULAR VOLUME 98.1 fL (81-99); MONOCYTES # (AUTO) 1.1 (0.2-0.8); MONOCYTES % 7.8 % (4.4-11.3); NEUTROPHILS # (AUTO) 11.3 (2.1-6.9); NEUTROPHILS % 84.5 % (38.7-80.0); PLATELET COUNT 175 x10e3/uL (140-360); RED BLOOD COUNT 3.14 x10e6/uL (4.3-5.7); RED CELL DISTRIBUTION WIDTH 17.6 % (11.7-14.4)
[2020-08-12 18:05] LABS: ALBUMIN 3.1 g/dL (3.5-5.0); ALBUMIN/GLOBULIN RATIO 0.8 (0.8-2.0); ANION GAP 20.7 mmol/L (8-16); CALCIUM 9.5 mg/dL (8.4-10.2); CREATININE, SERUM 4.31 mg/dL (0.72-1.25); POTASSIUM 3.7 mmol/L (3.5-5.1)
[2020-08-12 18:11] LABS: B-TYPE NATRIURETIC PEPTIDE2 1349.1 pg/mL (0-100)
[2020-08-12 18:13] LABS: CREATINE KINASE MB 6.9 ng/mL (0-5.0)
[2020-08-12] MEDS: PIPERACILLIN/TAZOBACTAM 3.375 GM in SODIUM CHLORIDE 0.9% 50ML 50 ML IV SCH (18:17)
[2020-08-12] MEDS: MORPHINE SULFATE INJ 4 MG/ML INJ 1ML IV PRN (18:17)
[2020-08-12] MEDS: ONDANSETRON HCL INJ 2MG/ML 2ML 2 MG/ML VIAL IV PRN (18:18)
[2020-08-12] MEDS: SODIUM CHLORIDE 0.9% 1000ML 1,000 ML IV SCH (21:50)
[2020-08-13] MEDS: PIPERACILLIN/TAZOBACTAM 3.375 GM in SODIUM CHLORIDE 0.9% 50ML 50 ML IV SCH ×3 (01:49→20:00)
[2020-08-13] MEDS: SODIUM CHLORIDE 0.9% 1000ML 1,000 ML IV SCH ×2 (01:49→06:19)
[2020-08-13] MEDS: MORPHINE SULFATE INJ 4 MG/ML INJ 1ML IV PRN ×2 (01:50→09:43)
[2020-08-13 03:00] LABS: CREATINE KINASE MB 7.2 ng/mL (0-5.0)
[2020-08-13 04:12] LABS: BASOPHILS # (AUTO) 0.1 (0.0-0.1); BASOPHILS % 1.1 % (0.0-1.0); EOSINOPHILS # (AUTO) 0.2 (0.0-0.4); EOSINOPHILS % 1.7 % (0.0-6.0); HEMATOCRIT 30.2 % (38.2-49.6); HEMOGLOBIN 9.2 g/dL (14.0-18.0); LYMPHOCYTES # (AUTO) 0.5 (1.0-3.2); LYMPHOCYTES % 3.9 % (18.0-39.1); MEAN CORPUSCULAR HEMOGLOBIN 30.5 pg (28-32); MEAN CORPUSCULAR HGB CONC 30.5 g/dL (31-35); MONOCYTES # (AUTO) 1.1 (0.2-0.8); NEUTROPHILS # (AUTO) 11.3 (2.1-6.9); NEUTROPHILS % 84.5 % (38.7-80.0); PLATELET COUNT 184 x10e3/uL (140-360); RED BLOOD COUNT 3.02 x10e6/uL (4.3-5.7); RED CELL DISTRIBUTION WIDTH 17.9 % (11.7-14.4)
[2020-08-13 04:31] LABS: ALBUMIN 2.8 g/dL (3.5-5.0); ALBUMIN/GLOBULIN RATIO 0.8 (0.8-2.0); ANION GAP 22.9 mmol/L (8-16); CALCIUM 8.7 mg/dL (8.4-10.2); CREATININE, SERUM 4.66 mg/dL (0.72-1.25); POTASSIUM 3.9 mmol/L (3.5-5.1)
[2020-08-13] MEDS ORDERED: ATORVASTATIN 40 MG TAB PO SCH (09:00)
[2020-08-13] MEDS: ASPIRIN 81 MG CHEW TAB PO SCH (09:43)
[2020-08-13] MEDS: ONDANSETRON HCL INJ 2MG/ML 2ML 2 MG/ML VIAL IV PRN (09:43)
[2020-08-13] MEDS ORDERED: VANCOMYCIN 1GM/NS 250 ML 250 ML IV ONE (09:45)
[2020-08-13] MEDS ORDERED: EPOETIN ALFA-EPBX 10,000 UNIT/ML VIAL SC ONE ×2 (11:00→16:30)
[2020-08-13 12:00] LABS: CREATINE KINASE MB 10.7 ng/mL (0-5.0)
[2020-08-13] MEDS: SEVELAMER CARBONATE 800 MG TAB PO SCH ×2 (12:41→18:21)
[2020-08-13 15:15] VITALS: BP 126/83
[2020-08-13 15:38] VITALS: BP 126/83
[2020-08-13 16:50] LABS: PROTHROMBIN TIME 10.8 seconds (11.9-14.5)
[2020-08-13 16:51] LABS: INR 0.97; PARTIAL THROMBOPLASTIN TIME 28.9 seconds (23.8-35.5)
[2020-08-13 20:17] VITALS: BP 89/57
[2020-08-13] MEDS ORDERED: SODIUM CHLORIDE 0.9% 1000ML 1,000 ML ONE (20:40)
[2020-08-13] MEDS: ATORVASTATIN 40 MG TAB PO SCH (20:48)
[2020-08-13] MEDS: HYDROCODONE/APAP 10MG-325MG TAB PO PRN (20:48)
[2020-08-13 23:25] VITALS: BP 89/57
[2020-08-14 00:09] VITALS: BP 106/69
[2020-08-14] MEDS: ONDANSETRON HCL INJ 2MG/ML 2ML 2 MG/ML VIAL IV PRN (01:52)
[2020-08-14] MEDS: MORPHINE SULFATE INJ 4 MG/ML INJ 1ML IV PRN (01:52)
[2020-08-14 04:54] VITALS: BP 95/62
[2020-08-14 06:46] LABS: BASOPHILS # (AUTO) 0.2 (0.0-0.1); EOSINOPHILS # (AUTO) 0.5 (0.0-0.4); EOSINOPHILS % 4.5 % (0.0-6.0); HEMATOCRIT 30.6 % (38.2-49.6); HEMOGLOBIN 9.3 g/dL (14.0-18.0); LYMPHOCYTES % 9.2 % (18.0-39.1); MEAN CORPUSCULAR HEMOGLOBIN 31.4 pg (28-32); MEAN CORPUSCULAR HGB CONC 30.4 g/dL (31-35); MONOCYTES # (AUTO) 1.2 (0.2-0.8); MONOCYTES % 10.9 % (4.4-11.3); NEUTROPHILS # (AUTO) 7.9 (2.1-6.9); NEUTROPHILS % 72.3 % (38.7-80.0); PLATELET COUNT 149 x10e3/uL (140-360); RED BLOOD COUNT 2.96 x10e6/uL (4.3-5.7); RED CELL DISTRIBUTION WIDTH 18.1 % (11.7-14.4)
[2020-08-14 06:58] LABS: MEAN CORPUSCULAR VOLUME 103.4 fL (81-99)
[2020-08-14] MEDS ORDERED: LIDOCAINE HCL 1% LOCAL INJ 20 ML VIAL ONE (07:02)
[2020-08-14] MEDS ORDERED: BETAMETHASONE DISODIUM PHOS 6 MG/ML VIAL ONE (07:02)
[2020-08-14] MEDS ORDERED: BUPIVACAINE HCL 0.5% INJ 30 ML VIAL INJ ONE (07:03)
[2020-08-14 07:07] LABS: ALBUMIN 2.8 g/dL (3.5-5.0); ALBUMIN/GLOBULIN RATIO 0.7 (0.8-2.0); ANION GAP 23.7 mmol/L (8-16); CALCIUM 9.4 mg/dL (8.4-10.2); CREATININE, SERUM 6.33 mg/dL (0.72-1.25)
[2020-08-14 07:09] LABS: POTASSIUM 4.7 mmol/L (3.5-5.1)
[2020-08-14] MEDS ORDERED: MUPIROCIN 2% OINT 22 GM TUBE ONE (07:51)
[2020-08-14] MEDS: SEVELAMER CARBONATE 800 MG TAB PO SCH ×4 (08:00→17:22)
[2020-08-14] MEDS ORDERED: Vancomycin IV 500 MG ONE (08:16)
[2020-08-14] MEDS: ASPIRIN 81 MG CHEW TAB PO SCH (09:00)
[2020-08-14 09:25] VITALS: BP 113/76
[2020-08-14] MEDS: PIPERACILLIN/TAZOBACTAM 3.375 GM in SODIUM CHLORIDE 0.9% 50ML 50 ML IV SCH ×2 (10:01→20:00)
[2020-08-14] MEDS ORDERED: PROPOFOL IV EMULSION 10 MG/ML 20 ML VIAL ONE (11:29)
[2020-08-14] MEDS ORDERED: SEVOFLURANE INHAL SOLN 250 ML PEN BTL ONE (11:29)
[2020-08-14] MEDS ORDERED: POVIDONE IODINE 0.05% 0.05 % ML PO ONE (11:29)
[2020-08-14] MEDS ORDERED: ONDANSETRON HCL INJ 2MG/ML 2ML 2 MG/ML VIAL ONE (11:29)
[2020-08-14] MEDS ORDERED: LIDOCAINE HCL 2% LOCAL INJ 5 ML SDV VIAL INJ ONE (11:29)
[2020-08-14 13:06] VITALS: BP 99/71
[2020-08-14] MEDS ORDERED: MIDAZOLAM HCL 2 MG/2 ML VIAL ONE (13:27)
[2020-08-14 16:41] VITALS: BP 109/59
[2020-08-14] MEDS: VANCOMYCIN 1GM/NS 250 ML 250 ML IV SCH (17:00)
[2020-08-14] MEDS: HYDROCODONE/APAP 10MG-325MG TAB PO PRN ×2 (17:24→22:45)
[2020-08-14 20:18] VITALS: BP 90/78
[2020-08-14] MEDS: ATORVASTATIN 40 MG TAB PO SCH (21:00)
[2020-08-15] VITALS (10 sets, daily range): BP systolic 90–107; BP diastolic 56–76
[2020-08-15] MEDS: MORPHINE SULFATE INJ 4 MG/ML INJ 1ML IV PRN ×2 (06:53→21:12)
[2020-08-15] MEDS: ONDANSETRON HCL INJ 2MG/ML 2ML 2 MG/ML VIAL IV PRN (06:54)
[2020-08-15] MEDS: SEVELAMER CARBONATE 800 MG TAB PO SCH ×2 (08:00→12:00)
[2020-08-15] MEDS: PIPERACILLIN/TAZOBACTAM 3.375 GM in SODIUM CHLORIDE 0.9% 50ML 50 ML IV SCH ×2 (08:00→20:18)
[2020-08-15] MEDS: ASPIRIN 81 MG CHEW TAB PO SCH (09:00)
[2020-08-15] MEDS: ATORVASTATIN 40 MG TAB PO SCH (21:12)
[2020-08-16] VITALS (9 sets, daily range): BP systolic 90–129; BP diastolic 61–117
[2020-08-16] MEDS: SEVELAMER CARBONATE 800 MG TAB PO SCH ×3 (08:00→17:00)
[2020-08-16 08:28] LABS: ANION GAP 21.7 mmol/L (8-16); CALCIUM 9.3 mg/dL (8.4-10.2); CREATININE, SERUM 6.35 mg/dL (0.72-1.25); POTASSIUM 4.7 mmol/L (3.5-5.1)
[2020-08-16] MEDS ORDERED: BENZOCAINE 20% SPR 60 ML CAN ONE (09:06)
[2020-08-16] MEDS ORDERED: SODIUM CHLORIDE 0.9% 1000ML 1,000 ML ONE (09:06)
[2020-08-16] MEDS: MORPHINE SULFATE INJ 4 MG/ML INJ 1ML IV PRN (10:20)
[2020-08-16] MEDS ORDERED: DIPHENHYDRAMINE HCL INJ 50 MG/ML VIAL IV ONE (11:00)
[2020-08-16] MEDS: PIPERACILLIN/TAZOBACTAM 3.375 GM in SODIUM CHLORIDE 0.9% 50ML 50 ML IV SCH ×2 (12:29→23:34)
[2020-08-16] MEDS: MUPIROCIN 2% OINT 22 GM TUBE TOP SCH ×2 (12:29→17:00)
[2020-08-16] MEDS: ASPIRIN 81 MG CHEW TAB PO SCH (12:29)
[2020-08-16] MEDS: VANCOMYCIN 1GM/NS 250 ML 250 ML IV SCH (16:00)
[2020-08-16] MEDS: ATORVASTATIN 40 MG TAB PO SCH (21:02)
[2020-08-16] MEDS ORDERED: SODIUM CHLORIDE 0.9% 250ML 250 ML ONE (23:35)
[2020-08-16] MEDS ORDERED: BISACODYL 5 MG TAB EC PO PRN (23:45)
[2020-08-17] VITALS (8 sets, daily range): BP systolic 96–125; BP diastolic 39–94
[2020-08-17] MEDS: LORAZEPAM INJ 2 MG/ML VIAL IV PRN (02:17)
[2020-08-17 06:47] LABS: CLARITY,URINE TURBID (CLEAR); COLOR,URINE YELLOW (YELLOW)
[2020-08-17 06:48] LABS: KETONES,URINE 1+ (NEGATIVE); LEUKOCYTE ESTERASE ,URINE SMALL (NEGATIVE); NITRITE,URINE NEGATIVE (NEGATIVE); PROTEIN,URINE DIPSTICK 2+ (NEGATIVE); URINE UROBILINOGEN 0.2 mg/dL (0.2 - 1)
[2020-08-17 07:08] LABS: BACTERIA,URINE RARE /HPF; WBC,URINE (MAN) >50 /HPF (0-5)
[2020-08-17] MEDS: SEVELAMER CARBONATE 800 MG TAB PO SCH ×3 (08:00→17:00)
[2020-08-17] MEDS: MORPHINE SULFATE INJ 4 MG/ML INJ 1ML IV PRN (08:04)
[2020-08-17] MEDS: ASPIRIN 81 MG CHEW TAB PO SCH (09:00)
[2020-08-17] MEDS: MUPIROCIN 2% OINT 22 GM TUBE TOP SCH ×3 (09:00→19:59)
[2020-08-17] MEDS: HYDROXYZINE HCL 25 MG TAB PO PRN ×2 (09:31→22:59)
[2020-08-17] MEDS: PIPERACILLIN/TAZOBACTAM 3.375 GM in SODIUM CHLORIDE 0.9% 50ML 50 ML IV SCH ×2 (12:00→23:37)
[2020-08-17] MEDS: ATORVASTATIN 40 MG TAB PO SCH (19:58)
[2020-08-17] MEDS: HYDROCODONE/APAP 10MG-325MG TAB PO PRN (19:59)
[2020-08-18] VITALS (8 sets, daily range): BP systolic 76–116; BP diastolic 44–74
[2020-08-18] MEDS: HYDROCODONE/APAP 10MG-325MG TAB PO PRN ×2 (05:41→18:24)
[2020-08-18] MEDS: SEVELAMER CARBONATE 800 MG TAB PO SCH ×3 (08:00→16:28)
[2020-08-18] MEDS: ASPIRIN 81 MG CHEW TAB PO SCH (08:20)
[2020-08-18] MEDS: HYDROXYZINE HCL 25 MG TAB PO PRN (08:23)
[2020-08-18] MEDS: MUPIROCIN 2% OINT 22 GM TUBE TOP SCH ×4 (08:26→17:00)
[2020-08-18] MEDS: PIPERACILLIN/TAZOBACTAM 3.375 GM in SODIUM CHLORIDE 0.9% 50ML 50 ML IV SCH (12:19)
[2020-08-18] MEDS: ATORVASTATIN 40 MG TAB PO SCH (22:27)
[2020-08-18] MEDS: MORPHINE SULFATE INJ 4 MG/ML INJ 1ML IV PRN (22:33)
[2020-08-19] VITALS (10 sets, daily range): BP systolic 120–154; BP diastolic 68–79
[2020-08-19] MEDS: PIPERACILLIN/TAZOBACTAM 3.375 GM in SODIUM CHLORIDE 0.9% 50ML 50 ML IV SCH (00:50)
[2020-08-19] MEDS: MORPHINE SULFATE INJ 4 MG/ML INJ 1ML IV PRN (03:05)
[2020-08-19] MEDS: SEVELAMER CARBONATE 800 MG TAB PO SCH ×3 (08:00→17:00)
[2020-08-19 08:15] LABS: BASOPHILS # (AUTO) 0.3 (0.0-0.1); BASOPHILS % 1.2 % (0.0-1.0); EOSINOPHILS # (AUTO) 1.3 (0.0-0.4); EOSINOPHILS % 5.5 % (0.0-6.0); HEMOGLOBIN 9.5 g/dL (14.0-18.0); LYMPHOCYTES # (AUTO) 1.5 (1.0-3.2); LYMPHOCYTES % 6.6 % (18.0-39.1); MEAN CORPUSCULAR HEMOGLOBIN 30.3 pg (28-32); MEAN CORPUSCULAR HGB CONC 30.6 g/dL (31-35); MEAN CORPUSCULAR VOLUME 98.7 fL (81-99); MONOCYTES # (AUTO) 2.1 (0.2-0.8); MONOCYTES % 9.3 % (4.4-11.3); NEUTROPHILS # (AUTO) 14.4 (2.1-6.9); NEUTROPHILS % 63.6 % (38.7-80.0); PLATELET COUNT 196 x10e3/uL (140-360); RED BLOOD COUNT 3.14 x10e6/uL (4.3-5.7); RED CELL DISTRIBUTION WIDTH 17.4 % (11.7-14.4)
[2020-08-19 08:33] LABS: ALBUMIN 3.1 g/dL (3.5-5.0); ALBUMIN/GLOBULIN RATIO 0.8 (0.8-2.0); ANION GAP 21.1 mmol/L (8-16); CALCIUM 9.8 mg/dL (8.4-10.2); CREATININE, SERUM 7.71 mg/dL (0.72-1.25); POTASSIUM 5.1 mmol/L (3.5-5.1)
[2020-08-19] MEDS: MUPIROCIN 2% OINT 22 GM TUBE TOP SCH ×4 (09:00→17:00)
[2020-08-19] MEDS: ASPIRIN 81 MG CHEW TAB PO SCH (09:00)
[2020-08-19] MEDS: GABAPENTIN 100 MG CAP PO SCH ×3 (09:00→21:00)
[2020-08-19] MEDS ORDERED: MIDAZOLAM HCL 2 MG/2 ML VIAL ONE ×3 (10:14→19:40)
[2020-08-19] MEDS ORDERED: FENTANYL CITRATE/PF 100MCG/2 ML INJ ONE (10:15)
[2020-08-19] MEDS ORDERED: LIDOCAINE HCL 2% LOCAL 20 ML VIAL ONE ×2 (10:15→15:31)
[2020-08-19] MEDS ORDERED: HEPARIN SOD/SOD CHLORIDE 2,000 ML ONE (10:16)
[2020-08-19] MEDS ORDERED: IOPAMIDOL 370 MG/ML 200 ML INFUS..BTL INJ ONE (10:16)
[2020-08-19 11:13] LABS: BAND NEUTROPHILS % (MANUAL) 3 %; EOSINOPHILS % (MANUAL) 6 % (0-7); LYMPHOCYTES % (MANUAL) 9 % (19-48); MONOCYTES % (MANUAL) 6 % (3.4-9.0); MYELOCYTES % (MANUAL) 3 % (0-0); NEUTROPHILS % (MANUAL) 69 % (40-74); NUCLEATED RED BLOOD CELLS 1
[2020-08-19 11:14] LABS: ANISOCYTOSIS SLIGHT; OVALOCYTES FEW; PLATELET ESTIMATE ADEQUATE; PLATELET MORPHOLOGY COMMENT NORMAL
[2020-08-19 11:15] LABS: RBC MORPHOLOGY COMMENT ABNORMAL
[2020-08-19] MEDS ORDERED: LIDOCAINE HCL 2% LOCAL INJ 5 ML SDV VIAL INJ ONE (12:16)
[2020-08-19] MEDS ORDERED: PROPOFOL IV EMULSION 10 MG/ML 20 ML VIAL ONE (12:16)
[2020-08-19] MEDS ORDERED: POVIDONE IODINE 0.05% 0.05 % ML PO ONE (12:16)
[2020-08-19] MEDS: METRONIDAZOLE 500MG/NS 100ML 100 ML IV SCH ×2 (14:00→22:00)
[2020-08-19] MEDS ORDERED: SODIUM CHLORIDE 0.9% 1000ML 2,000 ML ONE (14:33)
[2020-08-19] MEDS ORDERED: SODIUM CHLORIDE 0.9% 1000ML 1,000 ML ONE ×2 (15:20→16:07)
[2020-08-19] MEDS ORDERED: HEPARIN SOD (PORCINE) 1000 UNIT/ML 30ML ONE (16:07)
[2020-08-19] MEDS ORDERED: VERAPAMIL HCL 2.5 MG/ML 2 ML VIAL ONE (16:07)
[2020-08-19] MEDS ORDERED: CLOPIDOGREL BISULFATE 75 MG TAB ONE (16:53)
[2020-08-19] MEDS ORDERED: ASPIRIN 325 MG TAB ONE (16:53)
[2020-08-19 18:34] LABS: BASOPHILS # (AUTO) 0.3 (0.0-0.1); BASOPHILS % 1.5 % (0.0-1.0); EOSINOPHILS # (AUTO) 1.2 (0.0-0.4); EOSINOPHILS % 5.3 % (0.0-6.0); HEMATOCRIT 32.6 % (38.2-49.6); HEMOGLOBIN 9.9 g/dL (14.0-18.0); LYMPHOCYTES # (AUTO) 1.7 (1.0-3.2); LYMPHOCYTES % 7.5 % (18.0-39.1); MEAN CORPUSCULAR HEMOGLOBIN 29.8 pg (28-32); MEAN CORPUSCULAR HGB CONC 30.4 g/dL (31-35); MEAN CORPUSCULAR VOLUME 98.2 fL (81-99); MONOCYTES % 9.1 % (4.4-11.3); NEUTROPHILS # (AUTO) 13.3 (2.1-6.9); NEUTROPHILS % 60.3 % (38.7-80.0); PLATELET COUNT 204 x10e3/uL (140-360); RED BLOOD COUNT 3.32 x10e6/uL (4.3-5.7); RED CELL DISTRIBUTION WIDTH 17.5 % (11.7-14.4)
[2020-08-19] MEDS: ATORVASTATIN 40 MG TAB PO SCH (21:00)
[2020-08-20] VITALS (10 sets, daily range): BP systolic 103–145; BP diastolic 61–86
[2020-08-20] MEDS: HYDROCODONE/APAP 10MG-325MG TAB PO PRN ×2 (02:41→20:57)
[2020-08-20] MEDS: LORAZEPAM INJ 2 MG/ML VIAL IV PRN (04:17)
[2020-08-20] MEDS: METRONIDAZOLE 500MG/NS 100ML 100 ML IV SCH ×3 (05:55→21:27)
[2020-08-20] MEDS: CEFTRIAXONE 1 GM in SODIUM CHLORIDE 0.9% 50ML 50 ML IV SCH (08:55)
[2020-08-20] MEDS: ASPIRIN 81 MG CHEW TAB PO SCH (08:55)
[2020-08-20] MEDS: GABAPENTIN 100 MG CAP PO SCH (08:55)
[2020-08-20] MEDS: SEVELAMER CARBONATE 800 MG TAB PO SCH ×3 (09:43→17:39)
[2020-08-20] MEDS ORDERED: SODIUM CHLORIDE 0.9% 1000ML 2,000 ML ONE (10:46)
[2020-08-20] MEDS: MUPIROCIN 2% OINT 22 GM TUBE TOP SCH ×4 (13:07→17:46)
[2020-08-20] MEDS: Vancomycin IV 1 GM in SODIUM CHLORIDE 0.9% 250ML 250 ML IV SCH (13:33)
[2020-08-20 19:45] LABS: INR 1.11; PROTHROMBIN TIME 14.9 seconds (11.9-14.5)
[2020-08-20] MEDS: ATORVASTATIN 40 MG TAB PO SCH (20:18)
[2020-08-20] MEDS: HYDROXYZINE HCL 25 MG TAB PO PRN (20:57)
[2020-08-21] VITALS (9 sets, daily range): BP systolic 99–140; BP diastolic 55–73
[2020-08-21] MEDS ORDERED: SODIUM CHLORIDE 0.9% 250ML 250 ML ONE (04:11)
[2020-08-21] MEDS: HYDROCODONE/APAP 10MG-325MG TAB PO PRN ×2 (04:15→23:22)
[2020-08-21] MEDS: METRONIDAZOLE 500MG/NS 100ML 100 ML IV SCH ×3 (05:05→21:27)
[2020-08-21 05:20] LABS: BASOPHILS # (AUTO) 0.4 (0.0-0.1); BASOPHILS % 1.5 % (0.0-1.0); EOSINOPHILS # (AUTO) 1.2 (0.0-0.4); EOSINOPHILS % 5.2 % (0.0-6.0); HEMATOCRIT 29.5 % (38.2-49.6); HEMOGLOBIN 9.2 g/dL (14.0-18.0); LYMPHOCYTES # (AUTO) 1.5 (1.0-3.2); LYMPHOCYTES % 6.2 % (18.0-39.1); MEAN CORPUSCULAR HEMOGLOBIN 30.3 pg (28-32); MEAN CORPUSCULAR HGB CONC 31.2 g/dL (31-35); MONOCYTES # (AUTO) 2.7 (0.2-0.8); MONOCYTES % 11.3 % (4.4-11.3); NEUTROPHILS # (AUTO) 14.5 (2.1-6.9); NEUTROPHILS % 60.2 % (38.7-80.0); PLATELET COUNT 186 x10e3/uL (140-360); RED BLOOD COUNT 3.04 x10e6/uL (4.3-5.7); RED CELL DISTRIBUTION WIDTH 17.2 % (11.7-14.4)
[2020-08-21 06:11] LABS: ALBUMIN 2.7 g/dL (3.5-5.0); ALBUMIN/GLOBULIN RATIO 0.8 (0.8-2.0); ANION GAP 20.1 mmol/L (8-16); CALCIUM 8.8 mg/dL (8.4-10.2); CREATININE, SERUM 6.66 mg/dL (0.72-1.25); POTASSIUM 4.1 mmol/L (3.5-5.1)
[2020-08-21] MEDS: ASPIRIN 81 MG CHEW TAB PO SCH (08:24)
[2020-08-21] MEDS: CEFTRIAXONE 1 GM in SODIUM CHLORIDE 0.9% 50ML 50 ML IV SCH (08:24)
[2020-08-21] MEDS: SEVELAMER CARBONATE 800 MG TAB PO SCH ×3 (08:24→16:52)
[2020-08-21] MEDS: HYDROXYZINE HCL 25 MG TAB PO PRN (08:25)
[2020-08-21 08:59] LABS: BAND NEUTROPHILS % (MANUAL) 4 %; EOSINOPHILS % (MANUAL) 3 % (0-7); LYMPHOCYTES % (MANUAL) 5 % (19-48); METAMYELOCYTES % (MANUAL) 5 % (0-0); MONOCYTES % (MANUAL) 8 % (3.4-9.0); MYELOCYTES % (MANUAL) 2 % (0-0); NEUTROPHILS % (MANUAL) 73 % (40-74)
[2020-08-21 09:01] LABS: ANISOCYTOSIS MODERATE; HYPOCHROMASIA SLIGHT; PLATELET ESTIMATE ADEQUATE; PLATELET MORPHOLOGY COMMENT NORMAL; POLYCHROMASIA FEW; RBC MORPHOLOGY COMMENT ABNORMAL
[2020-08-21] MEDS: MUPIROCIN 2% OINT 22 GM TUBE TOP SCH ×4 (11:43→17:35)
[2020-08-21] MEDS: Vancomycin IV 1 GM in SODIUM CHLORIDE 0.9% 250ML 250 ML IV SCH (16:10)
[2020-08-21] MEDS: ATORVASTATIN 40 MG TAB PO SCH (20:14)
[2020-08-22] MEDS: HYDROCODONE/APAP 10MG-325MG TAB PO PRN ×3 (03:36→23:30)
[2020-08-22 05:06] VITALS: BP 119/54
[2020-08-22] MEDS: METRONIDAZOLE 500MG/NS 100ML 100 ML IV SCH ×3 (05:18→22:53)
[2020-08-22] MEDS: SEVELAMER CARBONATE 800 MG TAB PO SCH ×3 (08:00→17:27)
[2020-08-22 08:06] VITALS: BP 124/66
[2020-08-22 08:39] VITALS: BP 124/66
[2020-08-22] MEDS ORDERED: SODIUM CHLORIDE 0.9% 1000ML 2,000 ML ONE (08:40)
[2020-08-22] MEDS: ASPIRIN 81 MG CHEW TAB PO SCH (09:00)
[2020-08-22] MEDS: CEFTRIAXONE 1 GM in SODIUM CHLORIDE 0.9% 50ML 50 ML IV SCH (09:00)
[2020-08-22] MEDS: MUPIROCIN 2% OINT 22 GM TUBE TOP SCH ×4 (09:00→17:16)
[2020-08-22] MEDS: Vancomycin IV 1 GM in SODIUM CHLORIDE 0.9% 250ML 250 ML IV SCH (13:30)
[2020-08-22] MEDS: MORPHINE SULFATE INJ 2 MG/ML SYR IV PRN ×2 (13:58→20:35)
[2020-08-22 16:15] VITALS: BP 138/70
[2020-08-22] MEDS ORDERED: ALBUTEROL SULFATE HFA 8GM INHALATION AEROSOL INH PRN (16:15)
[2020-08-22 20:25] VITALS: BP 116/60
[2020-08-22] MEDS: ATORVASTATIN 40 MG TAB PO SCH (20:35)
[2020-08-22 21:00] VITALS: BP 116/60
[2020-08-23] VITALS (7 sets, daily range): BP systolic 109–143; BP diastolic 60–76
[2020-08-23] MEDS: MORPHINE SULFATE INJ 2 MG/ML SYR IV PRN ×4 (01:52→20:49)
[2020-08-23] MEDS: METRONIDAZOLE 500MG/NS 100ML 100 ML IV SCH ×3 (05:36→21:59)
[2020-08-23 06:01] LABS: BASOPHILS # (AUTO) 0.3 (0.0-0.1); BASOPHILS % 1.4 % (0.0-1.0); EOSINOPHILS # (AUTO) 0.9 (0.0-0.4); EOSINOPHILS % 3.6 % (0.0-6.0); HEMATOCRIT 26.9 % (38.2-49.6); HEMOGLOBIN 8.3 g/dL (14.0-18.0); LYMPHOCYTES # (AUTO) 1.7 (1.0-3.2); LYMPHOCYTES % 7.1 % (18.0-39.1); MEAN CORPUSCULAR HEMOGLOBIN 30.5 pg (28-32); MEAN CORPUSCULAR HGB CONC 30.9 g/dL (31-35); MEAN CORPUSCULAR VOLUME 98.9 fL (81-99); MONOCYTES # (AUTO) 2.5 (0.2-0.8); MONOCYTES % 10.4 % (4.4-11.3); NEUTROPHILS # (AUTO) 14.1 (2.1-6.9); NEUTROPHILS % 58.2 % (38.7-80.0); PLATELET COUNT 171 x10e3/uL (140-360); RED BLOOD COUNT 2.72 x10e6/uL (4.3-5.7); RED CELL DISTRIBUTION WIDTH 17.2 % (11.7-14.4)
[2020-08-23 06:39] LABS: ALBUMIN 2.7 g/dL (3.5-5.0); ALBUMIN/GLOBULIN RATIO 0.8 (0.8-2.0); ANION GAP 16.6 mmol/L (8-16); CREATININE, SERUM 5.03 mg/dL (0.72-1.25); POTASSIUM 3.6 mmol/L (3.5-5.1)
[2020-08-23] MEDS ORDERED: LIDOCAINE HCL 1% LOCAL INJ 20 ML VIAL ONE (06:46)
[2020-08-23] MEDS ORDERED: MUPIROCIN 2% OINT 22 GM TUBE ONE (06:47)
[2020-08-23] MEDS ORDERED: BUPIVACAINE HCL 0.5% INJ 30 ML VIAL INJ ONE (06:47)
[2020-08-23] MEDS ORDERED: BETAMETHASONE DISODIUM PHOS 6 MG/ML VIAL ONE (06:47)
[2020-08-23] MEDS ORDERED: Vancomycin IV 500 MG ONE (07:06)
[2020-08-23] MEDS: SEVELAMER CARBONATE 800 MG TAB PO SCH ×3 (08:00→16:30)
[2020-08-23 08:12] LABS: BAND NEUTROPHILS % (MANUAL) 6 %; EOSINOPHILS % (MANUAL) 6 % (0-7); LYMPHOCYTES % (MANUAL) 3 % (19-48); MONOCYTES % (MANUAL) 8 % (3.4-9.0); MYELOCYTES % (MANUAL) 10 % (0-0); NEUTROPHILS % (MANUAL) 67 % (40-74); NUCLEATED RED BLOOD CELLS 1
[2020-08-23 08:13] LABS: ANISOCYTOSIS SLIGHT; PLATELET ESTIMATE ADEQUATE; PLATELET MORPHOLOGY COMMENT NORMAL
[2020-08-23 08:14] LABS: POLYCHROMASIA FEW; RBC MORPHOLOGY COMMENT NORMAL
[2020-08-23] MEDS ORDERED: MORPHINE SULFATE INJ 4 MG/ML INJ 1ML ONE (08:50)
[2020-08-23] MEDS: MUPIROCIN 2% OINT 22 GM TUBE TOP SCH ×2 (09:00→16:30)
[2020-08-23] MEDS: ASPIRIN 81 MG CHEW TAB PO SCH (10:00)
[2020-08-23] MEDS: CEFTRIAXONE 1 GM in SODIUM CHLORIDE 0.9% 50ML 50 ML IV SCH (10:00)
[2020-08-23] MEDS: HYDROXYZINE HCL 25 MG TAB PO PRN ×2 (10:54→20:49)
[2020-08-23] MEDS: Vancomycin IV 1 GM in SODIUM CHLORIDE 0.9% 250ML 250 ML IV SCH (17:00)
[2020-08-23 17:59] LABS: INR 1.05; PROTHROMBIN TIME 14.3 seconds (11.9-14.5)
[2020-08-23] MEDS ORDERED: POVIDONE IODINE 0.05% 0.05 % ML PO ONE (18:02)
[2020-08-23] MEDS ORDERED: PROPOFOL IV EMULSION 10 MG/ML 20 ML VIAL ONE (18:02)
[2020-08-23] MEDS ORDERED: LIDOCAINE HCL 2% LOCAL INJ 5 ML SDV VIAL INJ ONE (18:02)
[2020-08-23] MEDS ORDERED: SEVOFLURANE INHAL SOLN 250 ML PEN BTL ONE (18:02)
[2020-08-23] MEDS: ATORVASTATIN 40 MG TAB PO SCH (20:49)
[2020-08-23] MEDS: HYDROCODONE/APAP 10MG-325MG TAB PO PRN (21:59)
[2020-08-24] VITALS (8 sets, daily range): BP systolic 97–119; BP diastolic 58–93
[2020-08-24] MEDS: MORPHINE SULFATE INJ 2 MG/ML SYR IV PRN (03:38)
[2020-08-24] MEDS ORDERED: HYDROCODONE/APAP 10MG-325MG TAB PO SCH (06:00)
[2020-08-24] MEDS: METRONIDAZOLE 500MG/NS 100ML 100 ML IV SCH ×3 (06:29→23:21)
[2020-08-24] MEDS: HYDROCODONE/APAP 10MG-325MG TAB PO PRN ×3 (06:29→22:08)
[2020-08-24 08:11] LABS: BASOPHILS # (AUTO) 0.3 (0.0-0.1); BASOPHILS % 0.9 % (0.0-1.0); EOSINOPHILS # (AUTO) 0.8 (0.0-0.4); EOSINOPHILS % 2.3 % (0.0-6.0); HEMATOCRIT 22.4 % (38.2-49.6); LYMPHOCYTES # (AUTO) 1.8 (1.0-3.2); LYMPHOCYTES % 5.5 % (18.0-39.1); MEAN CORPUSCULAR HEMOGLOBIN 30.2 pg (28-32); MEAN CORPUSCULAR HGB CONC 30.4 g/dL (31-35); MEAN CORPUSCULAR VOLUME 99.6 fL (81-99); MONOCYTES # (AUTO) 3.7 (0.2-0.8); MONOCYTES % 11.5 % (4.4-11.3); NEUTROPHILS # (AUTO) 20.1 (2.1-6.9); NEUTROPHILS % 62.2 % (38.7-80.0); PLATELET COUNT 200 x10e3/uL (140-360); RED BLOOD COUNT 2.25 x10e6/uL (4.3-5.7); RED CELL DISTRIBUTION WIDTH 17.5 % (11.7-14.4)
[2020-08-24 08:15] LABS: HEMOGLOBIN 6.8 g/dL (14.0-18.0)
[2020-08-24] MEDS: SEVELAMER CARBONATE 800 MG TAB PO SCH ×4 (09:15→17:00)
[2020-08-24] MEDS: HYDROXYZINE HCL 25 MG TAB PO PRN ×3 (09:16→22:08)
[2020-08-24] MEDS: ASPIRIN 81 MG CHEW TAB PO SCH (09:16)
[2020-08-24] MEDS: CEFTRIAXONE 1 GM in SODIUM CHLORIDE 0.9% 50ML 50 ML IV SCH (09:16)
[2020-08-24] MEDS: MUPIROCIN 2% OINT 22 GM TUBE TOP SCH ×2 (09:16→17:14)
[2020-08-24] MEDS ORDERED: SODIUM CHLORIDE 0.9% 250ML 250 ML IV ONE (10:45)
[2020-08-24 10:53] LABS: BAND NEUTROPHILS % (MANUAL) 8 %; EOSINOPHILS % (MANUAL) 2 % (0-7); LYMPHOCYTES % (MANUAL) 5 % (19-48); METAMYELOCYTES % (MANUAL) 2 % (0-0); MONOCYTES % (MANUAL) 2 % (3.4-9.0); MYELOCYTES % (MANUAL) 6 % (0-0); NEUTROPHILS % (MANUAL) 75 % (40-74); PLATELET ESTIMATE ADEQUATE; PLATELET MORPHOLOGY COMMENT NORMAL; RBC MORPHOLOGY COMMENT NORMAL
[2020-08-24] MEDS ORDERED: SODIUM CHLORIDE 0.9% 500ML 500 ML ONE (15:02)
[2020-08-24] MEDS ORDERED: SALINE 0.65% NAS SOLN 1 SPRAY BTL PRN (18:15)
[2020-08-24] MEDS ORDERED: SODIUM CHLORIDE 0.9% 250ML 250 ML ONE ×2 (21:50→23:05)
[2020-08-24] MEDS ORDERED: ACETAMINOPHEN 325 MG TAB PO PRN (23:15)
[2020-08-24] MEDS: ATORVASTATIN 40 MG TAB PO SCH (23:21)
[2020-08-25 00:16] VITALS: BP 92/59
[2020-08-25] MEDS: METRONIDAZOLE 500MG/NS 100ML 100 ML IV SCH ×3 (06:00→22:20)
[2020-08-25] MEDS: MORPHINE SULFATE INJ 2 MG/ML SYR IV PRN ×2 (06:08→12:30)
[2020-08-25] MEDS: HYDROCODONE/APAP 10MG-325MG TAB PO PRN ×2 (08:07→18:47)
[2020-08-25] MEDS: ASPIRIN 81 MG CHEW TAB PO SCH (08:08)
[2020-08-25] MEDS: SEVELAMER CARBONATE 800 MG TAB PO SCH ×3 (08:08→17:00)
[2020-08-25] MEDS: HYDROXYZINE HCL 25 MG TAB PO PRN ×2 (08:08→15:20)
[2020-08-25] MEDS ORDERED: CEFEPIME 1 GM in SODIUM CHLORIDE 0.9% 50ML 50 ML IV SCH (09:00)
[2020-08-25 11:38] LABS: BASOPHILS # (AUTO) 0.6 (0.0-0.1); BASOPHILS % 1.3 % (0.0-1.0); EOSINOPHILS # (AUTO) 0.6 (0.0-0.4); EOSINOPHILS % 1.3 % (0.0-6.0); HEMATOCRIT 25.2 % (38.2-49.6); LYMPHOCYTES % 4.6 % (18.0-39.1); MEAN CORPUSCULAR HEMOGLOBIN 30.7 pg (28-32); MEAN CORPUSCULAR HGB CONC 31.7 g/dL (31-35); MEAN CORPUSCULAR VOLUME 96.6 fL (81-99); MONOCYTES # (AUTO) 5.6 (0.2-0.8); MONOCYTES % 12.7 % (4.4-11.3); NEUTROPHILS # (AUTO) 27.1 (2.1-6.9); NEUTROPHILS % 61.2 % (38.7-80.0); PLATELET COUNT 240 x10e3/uL (140-360); RED BLOOD COUNT 2.61 x10e6/uL (4.3-5.7); RED CELL DISTRIBUTION WIDTH 17.5 % (11.7-14.4)
[2020-08-25 11:56] LABS: ALBUMIN 2.7 g/dL (3.5-5.0); ALBUMIN/GLOBULIN RATIO 0.9 (0.8-2.0); ANION GAP 17.3 mmol/L (8-16); CREATININE, SERUM 7.01 mg/dL (0.72-1.25); POTASSIUM 4.3 mmol/L (3.5-5.1)
[2020-08-25 12:27] LABS: BAND NEUTROPHILS % (MANUAL) 3 %; EOSINOPHILS % (MANUAL) 2 % (0-7); LYMPHOCYTES % (MANUAL) 5 % (19-48); METAMYELOCYTES % (MANUAL) 5 % (0-0); MONOCYTES % (MANUAL) 6 % (3.4-9.0); MYELOCYTES % (MANUAL) 5 % (0-0); NEUTROPHILS % (MANUAL) 73 % (40-74)
[2020-08-25 12:28] LABS: ANISOCYTOSIS SLIGHT; PLATELET ESTIMATE ADEQUATE; PLATELET MORPHOLOGY COMMENT FEW LARGE; RBC MORPHOLOGY COMMENT NORMAL
[2020-08-25] MEDS ORDERED: HYDROCODONE/APAP 10MG-325MG TAB PO PRN (21:00)
[2020-08-25] MEDS: ATORVASTATIN 40 MG TAB PO SCH (21:00)
[2020-08-26] MEDS: METRONIDAZOLE 500MG/NS 100ML 100 ML IV SCH (05:43)
[2020-08-26 05:53] LABS: BASOPHILS # (AUTO) 0.6 (0.0-0.1); BASOPHILS % 1.3 % (0.0-1.0); EOSINOPHILS # (AUTO) 0.4 (0.0-0.4); EOSINOPHILS % 0.9 % (0.0-6.0); HEMATOCRIT 24.4 % (38.2-49.6); HEMOGLOBIN 7.6 g/dL (14.0-18.0); LYMPHOCYTES # (AUTO) 2.5 (1.0-3.2); LYMPHOCYTES % 5.9 % (18.0-39.1); MEAN CORPUSCULAR HEMOGLOBIN 30.5 pg (28-32); MEAN CORPUSCULAR HGB CONC 31.1 g/dL (31-35); MONOCYTES # (AUTO) 5.2 (0.2-0.8); MONOCYTES % 12.2 % (4.4-11.3); NEUTROPHILS # (AUTO) 26.2 (2.1-6.9); NEUTROPHILS % 61.6 % (38.7-80.0); PLATELET COUNT 232 x10e3/uL (140-360); RED BLOOD COUNT 2.49 x10e6/uL (4.3-5.7); RED CELL DISTRIBUTION WIDTH 17.2 % (11.7-14.4)
[2020-08-26 06:21] LABS: ALBUMIN 2.8 g/dL (3.5-5.0); ALBUMIN/GLOBULIN RATIO 0.9 (0.8-2.0); ANION GAP 20.5 mmol/L (8-16); CALCIUM 9.3 mg/dL (8.4-10.2); CREATININE, SERUM 7.87 mg/dL (0.72-1.25); POTASSIUM 4.5 mmol/L (3.5-5.1)
[2020-08-26 06:57] LABS: ANISOCYTOSIS SLIGHT; BAND NEUTROPHILS % (MANUAL) 4 %; LYMPHOCYTES % (MANUAL) 7 % (19-48); METAMYELOCYTES % (MANUAL) 1 % (0-0); MONOCYTES % (MANUAL) 9 % (3.4-9.0); MYELOCYTES % (MANUAL) 9 % (0-0); NEUTROPHILS % (MANUAL) 70 % (40-74); NUCLEATED RED BLOOD CELLS 1
[2020-08-26 06:58] LABS: POLYCHROMASIA FEW
[2020-08-26 06:59] LABS: PLATELET ESTIMATE ADEQUATE; PLATELET MORPHOLOGY COMMENT NORMAL; RBC MORPHOLOGY COMMENT NORMAL
[2020-08-26] MEDS ORDERED: GABAPENTIN 300 MG CAP PO ONE (10:15)
[2020-08-26] MEDS: Vancomycin IV 1 GM in SODIUM CHLORIDE 0.9% 250ML 250 ML IV SCH (17:00)
[2020-08-26] MEDS: ATORVASTATIN 40 MG TAB PO SCH (21:00)
[2020-08-27 08:00] VITALS: BP 116/79
[2020-08-27] MEDS: SEVELAMER CARBONATE 800 MG TAB PO SCH ×3 (08:00→16:53)
[2020-08-27] MEDS: ASPIRIN 81 MG CHEW TAB PO SCH (09:00)
[2020-08-27] MEDS: GABAPENTIN 300 MG CAP PO SCH (09:00)
[2020-08-27 12:00] VITALS: BP 127/84
[2020-08-27 13:22] LABS: ALBUMIN/GLOBULIN RATIO 0.8 (0.8-2.0); ANION GAP 18.3 mmol/L (8-16); CALCIUM 9.7 mg/dL (8.4-10.2); CREATININE, SERUM 5.89 mg/dL (0.72-1.25); HEMATOCRIT 28.6 % (38.2-49.6); HEMOGLOBIN 8.8 g/dL (14.0-18.0); MEAN CORPUSCULAR VOLUME 98.3 fL (81-99); POTASSIUM 4.3 mmol/L (3.5-5.1); RED BLOOD COUNT 2.91 x10e6/uL (4.3-5.7)
[2020-08-27 13:23] LABS: BASOPHILS # (AUTO) 0.7 (0.0-0.1); BASOPHILS % 1.5 % (0.0-1.0); EOSINOPHILS # (AUTO) 0.2 (0.0-0.4); EOSINOPHILS % 0.5 % (0.0-6.0); LYMPHOCYTES # (AUTO) 2.3 (1.0-3.2); LYMPHOCYTES % 4.9 % (18.0-39.1); MEAN CORPUSCULAR HEMOGLOBIN 30.2 pg (28-32); MEAN CORPUSCULAR HGB CONC 30.8 g/dL (31-35); MONOCYTES # (AUTO) 5.6 (0.2-0.8); MONOCYTES % 11.9 % (4.4-11.3); NEUTROPHILS # (AUTO) 28.5 (2.1-6.9); NEUTROPHILS % 61.2 % (38.7-80.0); PLATELET COUNT 250 x10e3/uL (140-360); RED CELL DISTRIBUTION WIDTH 17.2 % (11.7-14.4)
[2020-08-27 16:00] VITALS: BP 110/73
[2020-08-27] MEDS ORDERED: ONDANSETRON HCL INJ 2MG/ML 2ML 2 MG/ML VIAL IV PRN (19:45)
[2020-08-27] MEDS: ATORVASTATIN 40 MG TAB PO SCH (19:57)
[2020-08-27] MEDS: HYDROXYZINE HCL 25 MG TAB PO PRN (19:57)
[2020-08-27 20:00] VITALS: BP 143/64
[2020-08-27] MEDS: HYDROCODONE/APAP 10MG-325MG TAB PO PRN (20:12)
[2020-08-27 23:46] VITALS: BP 120/82
[2020-08-28] VITALS (8 sets, daily range): BP systolic 91–124; BP diastolic 62–82
[2020-08-28] MEDS: MORPHINE SULFATE INJ 2 MG/ML SYR IV PRN ×2 (00:35→04:07)
[2020-08-28] MEDS: ONDANSETRON HCL INJ 2MG/ML 2ML 2 MG/ML VIAL IV PRN (01:22)
[2020-08-28] MEDS: HYDROCODONE/APAP 10MG-325MG TAB PO PRN ×4 (01:22→14:04)
[2020-08-28] MEDS: HYDROXYZINE HCL 25 MG TAB PO PRN ×2 (06:37→15:21)
[2020-08-28 07:19] LABS: ALBUMIN 2.8 g/dL (3.5-5.0); ALBUMIN/GLOBULIN RATIO 0.8 (0.8-2.0); ANION GAP 18.5 mmol/L (8-16); CALCIUM 9.2 mg/dL (8.4-10.2); CREATININE, SERUM 7.05 mg/dL (0.72-1.25); POTASSIUM 4.5 mmol/L (3.5-5.1)
[2020-08-28] MEDS: SEVELAMER CARBONATE 800 MG TAB PO SCH ×5 (08:00→16:08)
[2020-08-28] MEDS: GABAPENTIN 300 MG CAP PO SCH (08:35)
[2020-08-28] MEDS: ASPIRIN 81 MG CHEW TAB PO SCH (08:35)
[2020-08-28] MEDS ORDERED: SODIUM CHLORIDE 0.9% 1000ML 2,000 ML ONE (10:07)
[2020-08-28] MEDS ORDERED: ALPRAZOLAM 0.25 MG TAB PO PRN (10:45)
[2020-08-28 11:37] LABS: BASOPHILS # (AUTO) 0.6 (0.0-0.1); BASOPHILS % 1.4 % (0.0-1.0); EOSINOPHILS # (AUTO) 0.2 (0.0-0.4); EOSINOPHILS % 0.4 % (0.0-6.0); HEMATOCRIT 24.7 % (38.2-49.6); HEMOGLOBIN 7.5 g/dL (14.0-18.0); LYMPHOCYTES # (AUTO) 1.9 (1.0-3.2); LYMPHOCYTES % 4.5 % (18.0-39.1); MEAN CORPUSCULAR HEMOGLOBIN 29.5 pg (28-32); MEAN CORPUSCULAR HGB CONC 30.4 g/dL (31-35); MEAN CORPUSCULAR VOLUME 97.2 fL (81-99); MONOCYTES # (AUTO) 5.7 (0.2-0.8); MONOCYTES % 13.7 % (4.4-11.3); NEUTROPHILS # (AUTO) 24.6 (2.1-6.9); NEUTROPHILS % 59.2 % (38.7-80.0); PLATELET COUNT 261 x10e3/uL (140-360); RED BLOOD COUNT 2.54 x10e6/uL (4.3-5.7); RED CELL DISTRIBUTION WIDTH 17.3 % (11.7-14.4)
[2020-08-28] MEDS ORDERED: KETOROLAC TROMETHAMINE 30 MG/ML VIAL IV ONE (11:40)
[2020-08-28] MEDS ORDERED: DEXTROSE 50% SYRINGE 50 ML IV PRN (11:45)
[2020-08-28] MEDS ORDERED: INSULIN REGULAR, HUMAN 100 UNIT/1 ML 3ML VIAL SQ SCH (12:00)
[2020-08-28 12:52] LABS: BAND NEUTROPHILS % (MANUAL) 3 %; EOSINOPHILS % (MANUAL) 3 % (0-7); LYMPHOCYTES % (MANUAL) 8 % (19-48); MONOCYTES % (MANUAL) 12 % (3.4-9.0); MYELOCYTES % (MANUAL) 11 % (0-0); NEUTROPHILS % (MANUAL) 63 % (40-74)
[2020-08-28 12:53] LABS: ANISOCYTOSIS SLIGHT; PLATELET ESTIMATE ADEQUATE; PLATELET MORPHOLOGY COMMENT NORMAL; RBC MORPHOLOGY COMMENT NORMAL
[2020-08-28 15:24] LABS: FREE T4 (FREE THYROXINE) 1.01 ng/dL (0.8-1.8); THYROID STIMULATING HORMONE 0.218 uIU/mL (0.350-4.940)
[2020-08-28] MEDS: Vancomycin IV 1 GM in SODIUM CHLORIDE 0.9% 250ML 250 ML IV SCH (15:25)
[2020-08-28] MEDS: INSULIN LISPRO 100 UNIT/1 ML 3ML VIAL SQ SCH ×2 (15:56→20:44)
[2020-08-28] MEDS: ATORVASTATIN 40 MG TAB PO SCH (20:44)
[2020-08-28] MEDS ORDERED: INSULIN GLARGINE 100 UNITS/ML VIAL SQ SCH (21:00)
[2020-08-29] VITALS (8 sets, daily range): BP systolic 99–132; BP diastolic 55–96
[2020-08-29] MEDS: MORPHINE SULFATE INJ 2 MG/ML SYR IV PRN (03:30)
[2020-08-29] MEDS: HYDROCODONE/APAP 10MG-325MG TAB PO PRN ×2 (07:12→21:11)
[2020-08-29] MEDS ORDERED: INSULIN GLARGINE 100 UNITS/ML VIAL SQ SCH (09:00)
[2020-08-29] MEDS: ASPIRIN 81 MG CHEW TAB PO SCH (09:05)
[2020-08-29] MEDS: GABAPENTIN 300 MG CAP PO SCH (09:05)
[2020-08-29] MEDS: INSULIN LISPRO 100 UNIT/1 ML 3ML VIAL SQ SCH ×4 (09:26→21:00)
[2020-08-29] MEDS: SEVELAMER CARBONATE 800 MG TAB PO SCH (17:12)
[2020-08-29] MEDS: ATORVASTATIN 40 MG TAB PO SCH (21:00)
[2020-08-30 00:24] VITALS: BP 145/81
[2020-08-30] MEDS: HYDROCODONE/APAP 10MG-325MG TAB PO PRN ×2 (01:13→05:15)
[2020-08-30 05:01] VITALS: BP 120/73
[2020-08-30 07:27] LABS: BASOPHILS # (AUTO) 0.8 (0.0-0.1); BASOPHILS % 1.7 % (0.0-1.0); EOSINOPHILS # (AUTO) 0.7 (0.0-0.4); EOSINOPHILS % 1.4 % (0.0-6.0); HEMATOCRIT 26.6 % (38.2-49.6); LYMPHOCYTES # (AUTO) 2.4 (1.0-3.2); LYMPHOCYTES % 4.9 % (18.0-39.1); MEAN CORPUSCULAR HEMOGLOBIN 29.7 pg (28-32); MEAN CORPUSCULAR HGB CONC 30.1 g/dL (31-35); MEAN CORPUSCULAR VOLUME 98.9 fL (81-99); MONOCYTES # (AUTO) 5.7 (0.2-0.8); MONOCYTES % 11.6 % (4.4-11.3); NEUTROPHILS # (AUTO) 27.5 (2.1-6.9); NEUTROPHILS % 56.4 % (38.7-80.0); PLATELET COUNT 280 x10e3/uL (140-360); RED BLOOD COUNT 2.69 x10e6/uL (4.3-5.7); RED CELL DISTRIBUTION WIDTH 17.2 % (11.7-14.4)
[2020-08-30] MEDS: INSULIN LISPRO 100 UNIT/1 ML 3ML VIAL SQ SCH ×3 (07:30→16:30)
[2020-08-30 07:54] LABS: ALBUMIN 2.7 g/dL (3.5-5.0); ALBUMIN/GLOBULIN RATIO 0.8 (0.8-2.0); ANION GAP 14.3 mmol/L (8-16); CALCIUM 9.1 mg/dL (8.4-10.2); CREATININE, SERUM 5.9 mg/dL (0.72-1.25); POTASSIUM 4.3 mmol/L (3.5-5.1)
[2020-08-30] MEDS ORDERED: INSULIN GLARGINE 100 UNITS/ML VIAL SQ SCH (09:00)
[2020-08-30] MEDS ORDERED: CLOPIDOGREL BISULFATE 75 MG TAB PO SCH (09:00)
[2020-08-30] MEDS ORDERED: SODIUM CHLORIDE 0.9% 1000ML 2,000 ML ONE (09:23)
[2020-08-30] MEDS: GABAPENTIN 300 MG CAP PO SCH (09:37)
[2020-08-30] MEDS: ASPIRIN 81 MG CHEW TAB PO SCH (09:37)
[2020-08-30] MEDS: HYDROXYZINE HCL 25 MG TAB PO PRN (09:37)
[2020-08-30] MEDS: SEVELAMER CARBONATE 800 MG TAB PO SCH ×3 (09:37→16:39)
[2020-08-30 09:47] VITALS: BP 123/74
[2020-08-30 10:38] LABS: BAND NEUTROPHILS % (MANUAL) 15 %; EOSINOPHILS % (MANUAL) 1 % (0-7); LYMPHOCYTES % (MANUAL) 6 % (19-48); METAMYELOCYTES % (MANUAL) 1 % (0-0); MONOCYTES % (MANUAL) 9 % (3.4-9.0); MYELOCYTES % (MANUAL) 6 % (0-0); NEUTROPHILS % (MANUAL) 62 % (40-74); PLATELET ESTIMATE ADEQUATE; PLATELET MORPHOLOGY COMMENT NORMAL; RBC MORPHOLOGY COMMENT NORMAL
[2020-08-30 12:19] VITALS: BP 126/72
[2020-08-30] MEDS: MORPHINE SULFATE INJ 2 MG/ML SYR IV PRN (12:36)
[2020-08-30] MEDS: Vancomycin IV 1 GM in SODIUM CHLORIDE 0.9% 250ML 250 ML IV SCH (12:38)
[2020-08-30 15:33] VITALS: BP 131/80
[2020-08-30] MEDS ORDERED: LEVOFLOXACIN 500MG/D5W 100ML 100 ML IV SCH (16:00)
== END 2020-08-30 20:13 | DRG 853 ==
LOC: ER 16:56 → ERHOLD 17:33 → IMCU 08-13 15:16 → MED/SURG3 08-13 18:56
PROVIDERS: ADMIT Internal Medicine; ATTEND Internal Medicine
PROC: 0Y6S0Z0 Detachment at Left 2nd Toe, Complete, Open Approach (ICD-10-PCS; principal; 2020-08-13)
PROC: 0QBP0ZZ Excision of Left Metatarsal, Open Approach (ICD-10-PCS; 2020-08-13)
PROC: 0J9R0ZZ Drainage of Left Foot Subcutaneous Tissue and Fascia, Open Approach (ICD-10-PCS; 2020-08-13)
PROC: 5A1D70Z Performance of Urinary Filtration, Intermittent, Less than 6 Hours Per Day (ICD-10-PCS; 2020-08-14)
PROC: 5A1D70Z Performance of Urinary Filtration, Intermittent, Less than 6 Hours Per Day (ICD-10-PCS; 2020-08-16)
PROC: 047L3Z1 Dilation of Left Femoral Artery using Drug-Coated Balloon, Percutaneous Approach (ICD-10-PCS; 2020-08-19)
PROC: B40DYZZ Plain Radiography of Aorta and Bilateral Lower Extremity Arteries using Other Contrast (ICD-10-PCS; 2020-08-19)
PROC: 04CL3ZZ Extirpation of Matter from Left Femoral Artery, Percutaneous Approach (ICD-10-PCS; 2020-08-19)
PROC: 5A1D70Z Performance of Urinary Filtration, Intermittent, Less than 6 Hours Per Day (ICD-10-PCS; 2020-08-20)
PROC: 5A1D70Z Performance of Urinary Filtration, Intermittent, Less than 6 Hours Per Day (ICD-10-PCS; 2020-08-22)
PROC: 0Y6N0Z9 Detachment at Left Foot, Partial 1st Ray, Open Approach (ICD-10-PCS; 2020-08-23)
PROC: 0Y6N0ZB Detachment at Left Foot, Partial 2nd Ray, Open Approach (ICD-10-PCS; 2020-08-23)
PROC: 0Y6N0ZC Detachment at Left Foot, Partial 3rd Ray, Open Approach (ICD-10-PCS; 2020-08-23)
PROC: 0Y6N0ZD Detachment at Left Foot, Partial 4th Ray, Open Approach (ICD-10-PCS; 2020-08-23)
PROC: 0Y6N0ZF Detachment at Left Foot, Partial 5th Ray, Open Approach (ICD-10-PCS; 2020-08-23)
PROC: 02HV33Z Insertion of Infusion Device into Superior Vena Cava, Percutaneous Approach (ICD-10-PCS; 2020-08-23)
PROC: 5A1D70Z Performance of Urinary Filtration, Intermittent, Less than 6 Hours Per Day (ICD-10-PCS; 2020-08-24)
PROC: 02HV33Z Insertion of Infusion Device into Superior Vena Cava, Percutaneous Approach (ICD-10-PCS; 2020-08-25)
PROC: 5A1D70Z Performance of Urinary Filtration, Intermittent, Less than 6 Hours Per Day (ICD-10-PCS; 2020-08-26)
PROC: 5A1D70Z Performance of Urinary Filtration, Intermittent, Less than 6 Hours Per Day (ICD-10-PCS; 2020-08-28)
PROC: 5A1D70Z Performance of Urinary Filtration, Intermittent, Less than 6 Hours Per Day (ICD-10-PCS; 2020-08-30)
DX: A41.02 Sepsis due to Methicillin resistant Staphylococcus aureus (principal); N18.6 End stage renal disease; G92 Toxic encephalopathy; J18.0 Bronchopneumonia, unspecified organism; I21.A1 Myocardial infarction type 2; I12.0 Hypertensive chronic kidney disease with stage 5 chronic kidney disease or end stage renal disease; E11.52 Type 2 diabetes mellitus with diabetic peripheral angiopathy with gangrene; L02.612 Cutaneous abscess of left foot; I70.92 Chronic total occlusion of artery of the extremities; I70.263 Atherosclerosis of native arteries of extremities with gangrene, bilateral legs; M86.172 Other acute osteomyelitis, left ankle and foot; C92.10 Chronic myeloid leukemia, BCR/ABL-positive, not having achieved remission; L03.116 Cellulitis of left lower limb; L03.115 Cellulitis of right lower limb; L97.518 Non-pressure chronic ulcer of other part of right foot with other specified severity; E11.69 Type 2 diabetes mellitus with other specified complication; E11.22 Type 2 diabetes mellitus with diabetic chronic kidney disease; Z99.2 Dependence on renal dialysis; R65.20 Severe sepsis without septic shock; Z88.1 Allergy status to other antibiotic agents; Z88.8 Allergy status to other drugs, medicaments and biological substances; T87.81 Dehiscence of amputation stump; Z20.822 Contact with and (suspected) exposure to COVID-19; E78.5 Hyperlipidemia, unspecified; D63.1 Anemia in chronic kidney disease; G89.4 Chronic pain syndrome; I25.10 Atherosclerotic heart disease of native coronary artery without angina pectoris; Z95.5 Presence of coronary angioplasty implant and graft; E11.42 Type 2 diabetes mellitus with diabetic polyneuropathy; R53.81 Other malaise; E11.621 Type 2 diabetes mellitus with foot ulcer; L97.524 Non-pressure chronic ulcer of other part of left foot with necrosis of bone; Z91.19 Patient's noncompliance with other medical treatment and regimen; D72.823 Leukemoid reaction; E88.09 Other disorders of plasma-protein metabolism, not elsewhere classified; R77.1 Abnormality of globulin; N28.1 Cyst of kidney, acquired; K57.30 Diverticulosis of large intestine without perforation or abscess without bleeding; R16.1 Splenomegaly, not elsewhere classified
CPT/HCPCS: 36415; 71045; 71250; 74176; 80048; 80053; 80202; 81001; 82550; 82553; 82784; 82948; 83036; 83605; 83880; 83970; 84100; 84439; 84443; 84484; 85025; 85347; 85610; 85730; 86078; 86705; 86706; 86850; 86900; 86920; 87040; 87071; 87075; 87186; 87205; 87340; 88304; 88305; 88307; 88311; 93306; 93307; 93312; 93325; 96367; 96376; 99251; 99284; J0692; J0696; J0720; J1200; J1644; J1815; J1885; J1956; J2001; J2060; J2250; J2270; J2405; J2543; J3010; J3370; J3410; J7030; J7040; J7050; P9016; Q9967; U0002

== ENCOUNTER 2020-10-14 12:48 | Inpatient (IN) | payer MEDICARE, OTHER ==
[~2020-10-14] VITALS: Ht 172.7 cm; Wt 103.9 kg
[2020-10-14] MEDS ORDERED: ZINC-22050 MG PO (13:22)
[2020-10-14] MEDS ORDERED: NEURONTIN100 MG PO (13:22)
[2020-10-14] MEDS ORDERED: ATIVAN1 MG PO (13:22)
[2020-10-14] MEDS ORDERED: ADMELOG SO100 UNIT/1 (13:22)
[2020-10-14] MEDS ORDERED: BASAGLAR K100 UNIT/1 (13:22)
[2020-10-14] MEDS ORDERED: GABAPENTIN300 MG PO (13:22)
[2020-10-14] MEDS ORDERED: SODIUM CHLORIDE 0.9% 500ML 500 ML IV ONE (13:30)
[2020-10-14 13:38] LABS: BASOPHILS # (AUTO) 0.2 (0.0-0.1); BASOPHILS % 1.4 % (0.0-1.0); EOSINOPHILS # (AUTO) 0.2 (0.0-0.4); EOSINOPHILS % 1.5 % (0.0-6.0); HEMATOCRIT 24.3 % (38.2-49.6); HEMOGLOBIN 7.2 g/dL (14.0-18.0); LYMPHOCYTES # (AUTO) 1.1 (1.0-3.2); LYMPHOCYTES % 7.4 % (18.0-39.1); MEAN CORPUSCULAR HEMOGLOBIN 29.3 pg (28-32); MEAN CORPUSCULAR HGB CONC 29.6 g/dL (31-35); MEAN CORPUSCULAR VOLUME 98.8 fL (81-99); MONOCYTES # (AUTO) 1.7 (0.2-0.8); MONOCYTES % 11.8 % (4.4-11.3); NEUTROPHILS # (AUTO) 9.4 (2.1-6.9); NEUTROPHILS % 64.3 % (38.7-80.0); PLATELET COUNT 98 x10e3/uL (140-360); RED BLOOD COUNT 2.46 x10e6/uL (4.3-5.7); RED CELL DISTRIBUTION WIDTH 21.5 % (11.7-14.4)
[2020-10-14] MEDS ORDERED: CEFEPIME 1 GM in SODIUM CHLORIDE 0.9% 50ML 50 ML IV ONE (13:45)
[2020-10-14 13:59] LABS: INR 1.06
[2020-10-14 14:00] LABS: PARTIAL THROMBOPLASTIN TIME 33.8 seconds (23.8-35.5)
[2020-10-14] MEDS ORDERED: VANCOMYCIN 250MG/5ML ORAL SOLN PO SCH (14:00)
[2020-10-14] MEDS ORDERED: Vancomycin IV 1 GM in SODIUM CHLORIDE 0.9% 250ML 250 ML IV ONE (14:00)
[2020-10-14 14:09] LABS: ALBUMIN 3.1 g/dL (3.5-5.0); ALBUMIN/GLOBULIN RATIO 1.1 (0.8-2.0); ANION GAP 14.1 mmol/L (8-16); CREATININE, SERUM 5.84 mg/dL (0.72-1.25); POTASSIUM 5.1 mmol/L (3.5-5.1)
[2020-10-15] MEDS: HYDROCODONE/APAP 10MG-325MG TAB PO PRN ×5 (00:05→20:44)
[2020-10-15] MEDS ORDERED: ALBUTEROL SULFATE HFA 8GM INHALATION AEROSOL INH PRN (05:30)
[2020-10-15] MEDS ORDERED: DEXTROSE 50% SYRINGE 50 ML IV PRN (05:30)
[2020-10-15 07:20] LABS: BASOPHILS # (AUTO) 0.2 (0.0-0.1); BASOPHILS % 1.2 % (0.0-1.0); EOSINOPHILS # (AUTO) 0.2 (0.0-0.4); EOSINOPHILS % 1.2 % (0.0-6.0); HEMATOCRIT 24.9 % (38.2-49.6); HEMOGLOBIN 7.4 g/dL (14.0-18.0); LYMPHOCYTES # (AUTO) 0.9 (1.0-3.2); LYMPHOCYTES % 5.3 % (18.0-39.1); MEAN CORPUSCULAR HEMOGLOBIN 29.2 pg (28-32); MEAN CORPUSCULAR HGB CONC 29.7 g/dL (31-35); MEAN CORPUSCULAR VOLUME 98.4 fL (81-99); MONOCYTES % 11.5 % (4.4-11.3); NEUTROPHILS # (AUTO) 11.6 (2.1-6.9); NEUTROPHILS % 67.3 % (38.7-80.0); PLATELET COUNT 98 x10e3/uL (140-360); RED BLOOD COUNT 2.53 x10e6/uL (4.3-5.7); RED CELL DISTRIBUTION WIDTH 21.6 % (11.7-14.4)
[2020-10-15 07:34] LABS: ALBUMIN 3.2 g/dL (3.5-5.0); ANION GAP 18.2 mmol/L (8-16); CALCIUM 8.9 mg/dL (8.4-10.2); CREATININE, SERUM 6.42 mg/dL (0.72-1.25); POTASSIUM 5.2 mmol/L (3.5-5.1)
[2020-10-15] MEDS ORDERED: GABAPENTIN 100 MG CAP PO SCH (09:00)
[2020-10-15] MEDS: ASPIRIN 81 MG CHEW TAB PO SCH (09:24)
[2020-10-15] MEDS: CLOPIDOGREL BISULFATE 75 MG TAB PO SCH (09:24)
[2020-10-15] MEDS: ATORVASTATIN 40 MG TAB PO SCH (09:24)
[2020-10-15] MEDS: INSULIN LISPRO 100 UNIT/1 ML 3ML VIAL SQ SCH ×4 (09:24→20:45)
[2020-10-15 09:41] LABS: BAND NEUTROPHILS % (MANUAL) 1 %; EOSINOPHILS % (MANUAL) 1 % (0-7); LYMPHOCYTES % (MANUAL) 5 % (19-48); METAMYELOCYTES % (MANUAL) 2 % (0-0); MONOCYTES % (MANUAL) 12 % (3.4-9.0); MYELOCYTES % (MANUAL) 8 % (0-0); NEUTROPHILS % (MANUAL) 65 % (40-74); NUCLEATED RED BLOOD CELLS 2; PROMYELOCYTES % (MANUAL) 3 % (0-0)
[2020-10-15 09:43] LABS: ANISOCYTOSIS MODERATE; HYPOCHROMASIA MODERATE; PLATELET ESTIMATE MODERATELY DECREASED; PLATELET MORPHOLOGY COMMENT NORMAL; RBC MORPHOLOGY COMMENT ABNORMAL
[2020-10-15] MEDS: CEFEPIME 1 GM in SODIUM CHLORIDE 0.9% 50ML 50 ML IV SCH ×2 (11:00→22:35)
[2020-10-15] MEDS ORDERED: SODIUM CHLORIDE 0.9% 250ML 500 ML IV PRN (12:00)
[2020-10-15] MEDS: IRON SUCROSE 100 MG in SODIUM CHLORIDE 0.9% 100 ML 100 ML IV SCH (12:00)
[2020-10-15] MEDS: SEVELAMER CARBONATE 800 MG TAB PO SCH ×2 (12:00→16:20)
[2020-10-15] MEDS ORDERED: ALBUMIN 25% 12.5GM 0.25 GM/ML BTL IV PRN (12:00)
[2020-10-15] MEDS ORDERED: SODIUM CHLORIDE 0.9% 1000ML 2,000 ML IV PRN (12:00)
[2020-10-15 12:35] VITALS: BP 91/63
[2020-10-15] MEDS: EPOETIN ALFA-EPBX 10,000 UNIT/ML VIAL SC SCH (13:40)
[2020-10-15 14:07] VITALS: BP 91/63
[2020-10-15 15:46] VITALS: BP 106/58
[2020-10-15] MEDS: GABAPENTIN 300 MG CAP PO SCH (20:44)
[2020-10-15 21:12] VITALS: BP 123/109
[2020-10-15 22:24] VITALS: BP 124/67
[2020-10-16] VITALS (8 sets, daily range): BP systolic 93–120; BP diastolic 57–77
[2020-10-16] MEDS: HYDROCODONE/APAP 10MG-325MG TAB PO PRN ×4 (02:22→21:44)
[2020-10-16 06:03] LABS: BASOPHILS # (AUTO) 0.3 (0.0-0.1); BASOPHILS % 1.8 % (0.0-1.0); EOSINOPHILS # (AUTO) 0.2 (0.0-0.4); EOSINOPHILS % 1.4 % (0.0-6.0); HEMATOCRIT 26.1 % (38.2-49.6); HEMOGLOBIN 7.8 g/dL (14.0-18.0); LYMPHOCYTES # (AUTO) 1.2 (1.0-3.2); LYMPHOCYTES % 6.9 % (18.0-39.1); MEAN CORPUSCULAR HEMOGLOBIN 29.7 pg (28-32); MEAN CORPUSCULAR HGB CONC 29.9 g/dL (31-35); MEAN CORPUSCULAR VOLUME 99.2 fL (81-99); MONOCYTES # (AUTO) 2.2 (0.2-0.8); MONOCYTES % 13.2 % (4.4-11.3); NEUTROPHILS # (AUTO) 10.4 (2.1-6.9); NEUTROPHILS % 61.3 % (38.7-80.0); PLATELET COUNT 92 x10e3/uL (140-360); RED BLOOD COUNT 2.63 x10e6/uL (4.3-5.7); RED CELL DISTRIBUTION WIDTH 22.1 % (11.7-14.4)
[2020-10-16 06:33] LABS: ALBUMIN 3.1 g/dL (3.5-5.0); ALBUMIN/GLOBULIN RATIO 0.9 (0.8-2.0); ANION GAP 19.8 mmol/L (8-16); CREATININE, SERUM 5.54 mg/dL (0.72-1.25); POTASSIUM 4.8 mmol/L (3.5-5.1)
[2020-10-16] MEDS: INSULIN LISPRO 100 UNIT/1 ML 3ML VIAL SQ SCH ×4 (07:30→21:45)
[2020-10-16 08:06] LABS: BAND NEUTROPHILS % (MANUAL) 3 %; LYMPHOCYTES % (MANUAL) 9 % (19-48); METAMYELOCYTES % (MANUAL) 5 % (0-0); MONOCYTES % (MANUAL) 8 % (3.4-9.0); MYELOCYTES % (MANUAL) 6 % (0-0); NEUTROPHILS % (MANUAL) 68 % (40-74); NUCLEATED RED BLOOD CELLS 1
[2020-10-16 08:07] LABS: ANISOCYTOSIS MODERATE; HYPOCHROMASIA MODERATE; PLATELET ESTIMATE MODERATELY DECREASED; PLATELET MORPHOLOGY COMMENT NORMAL; RBC MORPHOLOGY COMMENT ABNORMAL
[2020-10-16 08:08] LABS: OVALOCYTES FEW; POLYCHROMASIA FEW
[2020-10-16] MEDS: CLOPIDOGREL BISULFATE 75 MG TAB PO SCH (08:39)
[2020-10-16] MEDS: ASPIRIN 81 MG CHEW TAB PO SCH (08:39)
[2020-10-16] MEDS: ATORVASTATIN 40 MG TAB PO SCH (08:39)
[2020-10-16] MEDS: SEVELAMER CARBONATE 800 MG TAB PO SCH ×3 (08:39→16:48)
[2020-10-16] MEDS: CEFEPIME 1 GM in SODIUM CHLORIDE 0.9% 50ML 50 ML IV SCH ×2 (12:10→22:40)
[2020-10-16] MEDS: IRON SUCROSE 100 MG in SODIUM CHLORIDE 0.9% 100 ML 100 ML IV SCH (12:52)
[2020-10-16] MEDS: COLLAGENASE 5 GM TUBE TP SCH (13:32)
[2020-10-16] MEDS: GABAPENTIN 300 MG CAP PO SCH (21:44)
[2020-10-17] VITALS (8 sets, daily range): BP systolic 98–134; BP diastolic 51–76
[2020-10-17] MEDS: HYDROCODONE/APAP 10MG-325MG TAB PO PRN ×4 (02:00→20:55)
[2020-10-17 05:40] LABS: BASOPHILS # (AUTO) 0.4 (0.0-0.1); BASOPHILS % 1.7 % (0.0-1.0); EOSINOPHILS # (AUTO) 0.3 (0.0-0.4); EOSINOPHILS % 1.3 % (0.0-6.0); LYMPHOCYTES # (AUTO) 1.5 (1.0-3.2); LYMPHOCYTES % 7.5 % (18.0-39.1); MEAN CORPUSCULAR HEMOGLOBIN 29.4 pg (28-32); MEAN CORPUSCULAR HGB CONC 29.6 g/dL (31-35); MEAN CORPUSCULAR VOLUME 99.3 fL (81-99); MONOCYTES # (AUTO) 2.2 (0.2-0.8); NEUTROPHILS # (AUTO) 11.7 (2.1-6.9); NEUTROPHILS % 57.5 % (38.7-80.0); PLATELET COUNT 97 x10e3/uL (140-360); RED BLOOD COUNT 2.72 x10e6/uL (4.3-5.7); RED CELL DISTRIBUTION WIDTH 21.7 % (11.7-14.4)
[2020-10-17 06:06] LABS: ALBUMIN 3.3 g/dL (3.5-5.0); ALBUMIN/GLOBULIN RATIO 1.1 (0.8-2.0); ANION GAP 21.1 mmol/L (8-16); CALCIUM 9.1 mg/dL (8.4-10.2); CREATININE, SERUM 6.43 mg/dL (0.72-1.25); POTASSIUM 5.1 mmol/L (3.5-5.1)
[2020-10-17] MEDS: INSULIN LISPRO 100 UNIT/1 ML 3ML VIAL SQ SCH ×4 (07:30→21:20)
[2020-10-17 07:31] LABS: BAND NEUTROPHILS % (MANUAL) 1 %; EOSINOPHILS % (MANUAL) 3 % (0-7); LYMPHOCYTES % (MANUAL) 4 % (19-48); METAMYELOCYTES % (MANUAL) 5 % (0-0); MONOCYTES % (MANUAL) 9 % (3.4-9.0); MYELOCYTES % (MANUAL) 14 % (0-0); NEUTROPHILS % (MANUAL) 59 % (40-74); NUCLEATED RED BLOOD CELLS 3; PROMYELOCYTES % (MANUAL) 2 % (0-0)
[2020-10-17 07:33] LABS: ANISOCYTOSIS MODERATE; HYPOCHROMASIA MODERATE; PLATELET ESTIMATE MODERATELY DECREASED; PLATELET MORPHOLOGY COMMENT FEW LARGE; POLYCHROMASIA FEW; RBC MORPHOLOGY COMMENT ABNORMAL
[2020-10-17] MEDS: SEVELAMER CARBONATE 800 MG TAB PO SCH ×3 (08:16→16:50)
[2020-10-17] MEDS: ASPIRIN 81 MG CHEW TAB PO SCH (08:16)
[2020-10-17] MEDS: ATORVASTATIN 40 MG TAB PO SCH (08:17)
[2020-10-17] MEDS: COLLAGENASE 5 GM TUBE TP SCH (08:50)
[2020-10-17] MEDS: HYDROMORPHONE 1MG/1ML INJ IV PRN (10:00)
[2020-10-17] MEDS: CEFEPIME 1 GM in SODIUM CHLORIDE 0.9% 50ML 50 ML IV SCH ×2 (13:14→22:24)
[2020-10-17] MEDS: EPOETIN ALFA-EPBX 10,000 UNIT/ML VIAL SC SCH (13:50)
[2020-10-17] MEDS: CLOPIDOGREL BISULFATE 75 MG TAB PO SCH (14:36)
[2020-10-17] MEDS: IRON SUCROSE 100 MG in SODIUM CHLORIDE 0.9% 100 ML 100 ML IV SCH (14:36)
[2020-10-17] MEDS: Vancomycin IV 1 GM in SODIUM CHLORIDE 0.9% 250ML 250 ML IV SCH (16:50)
[2020-10-17] MEDS ORDERED: ONDANSETRON HCL INJ 2MG/ML 2ML 2 MG/ML VIAL IV PRN (18:00)
[2020-10-17] MEDS: GABAPENTIN 300 MG CAP PO SCH (20:55)
[2020-10-18] VITALS (11 sets, daily range): BP systolic 93–122; BP diastolic 22–76
[2020-10-18] MEDS: HYDROCODONE/APAP 10MG-325MG TAB PO PRN ×3 (01:17→14:30)
[2020-10-18 07:06] LABS: BASOPHILS # (AUTO) 0.4 (0.0-0.1); BASOPHILS % 1.6 % (0.0-1.0); EOSINOPHILS # (AUTO) 0.4 (0.0-0.4); EOSINOPHILS % 1.6 % (0.0-6.0); HEMATOCRIT 24.9 % (38.2-49.6); HEMOGLOBIN 7.4 g/dL (14.0-18.0); LYMPHOCYTES # (AUTO) 1.3 (1.0-3.2); LYMPHOCYTES % 5.4 % (18.0-39.1); MEAN CORPUSCULAR HGB CONC 29.7 g/dL (31-35); MEAN CORPUSCULAR VOLUME 100.8 fL (81-99); MONOCYTES # (AUTO) 3.3 (0.2-0.8); MONOCYTES % 13.3 % (4.4-11.3); NEUTROPHILS # (AUTO) 13.7 (2.1-6.9); NEUTROPHILS % 55.2 % (38.7-80.0); PLATELET COUNT 110 x10e3/uL (140-360); RED BLOOD COUNT 2.47 x10e6/uL (4.3-5.7); RED CELL DISTRIBUTION WIDTH 22.3 % (11.7-14.4)
[2020-10-18 07:25] LABS: ALBUMIN 3.2 g/dL (3.5-5.0); ALBUMIN/GLOBULIN RATIO 1.1 (0.8-2.0); ANION GAP 16.3 mmol/L (8-16); CALCIUM 9.2 mg/dL (8.4-10.2); CREATININE, SERUM 4.52 mg/dL (0.72-1.25); POTASSIUM 4.3 mmol/L (3.5-5.1)
[2020-10-18] MEDS: INSULIN LISPRO 100 UNIT/1 ML 3ML VIAL SQ SCH ×4 (07:30→21:00)
[2020-10-18] MEDS: SEVELAMER CARBONATE 800 MG TAB PO SCH ×3 (08:00→17:00)
[2020-10-18] MEDS: CLOPIDOGREL BISULFATE 75 MG TAB PO SCH (09:00)
[2020-10-18] MEDS: ASPIRIN 81 MG CHEW TAB PO SCH (09:00)
[2020-10-18] MEDS: COLLAGENASE 5 GM TUBE TP SCH (09:00)
[2020-10-18] MEDS: ATORVASTATIN 40 MG TAB PO SCH (09:00)
[2020-10-18] MEDS: CEFEPIME 1 GM in SODIUM CHLORIDE 0.9% 50ML 50 ML IV SCH ×2 (11:00→23:11)
[2020-10-18 11:06] LABS: ANISOCYTOSIS MODERATE; BAND NEUTROPHILS % (MANUAL) 3 %; EOSINOPHILS % (MANUAL) 3 % (0-7); HYPOCHROMASIA MODERATE; LYMPHOCYTES % (MANUAL) 7 % (19-48); METAMYELOCYTES % (MANUAL) 1 % (0-0); MONOCYTES % (MANUAL) 11 % (3.4-9.0); MYELOCYTES % (MANUAL) 12 % (0-0); NEUTROPHILS % (MANUAL) 63 % (40-74)
[2020-10-18 11:07] LABS: OVALOCYTES FEW; PLATELET ESTIMATE MODERATELY DECREASED; PLATELET MORPHOLOGY COMMENT FEW LARGE; STOMATOCYTES SLIGHT
[2020-10-18] MEDS: IRON SUCROSE 100 MG in SODIUM CHLORIDE 0.9% 100 ML 100 ML IV SCH (12:00)
[2020-10-18] MEDS: HYDROMORPHONE 1MG/1ML INJ IV PRN (14:04)
[2020-10-18] MEDS ORDERED: SODIUM CHLORIDE 0.9% 250ML 250 ML IV ONE (17:00)
[2020-10-18 18:22] LABS: BASOPHILS # (AUTO) 0.3 (0.0-0.1); BASOPHILS % 1.4 % (0.0-1.0); EOSINOPHILS # (AUTO) 0.4 (0.0-0.4); EOSINOPHILS % 1.6 % (0.0-6.0); HEMATOCRIT 24.2 % (38.2-49.6); HEMOGLOBIN 7.3 g/dL (14.0-18.0); LYMPHOCYTES # (AUTO) 1.3 (1.0-3.2); LYMPHOCYTES % 5.1 % (18.0-39.1); MEAN CORPUSCULAR HGB CONC 30.2 g/dL (31-35); MEAN CORPUSCULAR VOLUME 99.6 fL (81-99); MONOCYTES % 12.3 % (4.4-11.3); NEUTROPHILS % 57.1 % (38.7-80.0); PLATELET COUNT 107 x10e3/uL (140-360); RED BLOOD COUNT 2.43 x10e6/uL (4.3-5.7); RED CELL DISTRIBUTION WIDTH 22.4 % (11.7-14.4)
[2020-10-18] MEDS: GABAPENTIN 300 MG CAP PO SCH (21:00)
[2020-10-19] VITALS (7 sets, daily range): BP systolic 82–130; BP diastolic 57–84
[2020-10-19] MEDS: INSULIN LISPRO 100 UNIT/1 ML 3ML VIAL SQ SCH ×4 (07:30→20:40)
[2020-10-19] MEDS: SEVELAMER CARBONATE 800 MG TAB PO SCH ×3 (08:00→16:52)
[2020-10-19] MEDS: COLLAGENASE 5 GM TUBE TP SCH (09:00)
[2020-10-19] MEDS: ATORVASTATIN 40 MG TAB PO SCH (09:00)
[2020-10-19] MEDS: ASPIRIN 81 MG CHEW TAB PO SCH (09:00)
[2020-10-19] MEDS: HYDROCODONE/APAP 10MG-325MG TAB PO PRN ×2 (09:55→20:10)
[2020-10-19] MEDS: CEFEPIME 1 GM in SODIUM CHLORIDE 0.9% 50ML 50 ML IV SCH ×2 (11:00→23:00)
[2020-10-19] MEDS: IRON SUCROSE 100 MG in SODIUM CHLORIDE 0.9% 100 ML 100 ML IV SCH (12:00)
[2020-10-19] MEDS: EPOETIN ALFA-EPBX 10,000 UNIT/ML VIAL SC SCH (14:00)
[2020-10-19] MEDS: Vancomycin IV 1 GM in SODIUM CHLORIDE 0.9% 250ML 250 ML IV SCH (16:50)
[2020-10-19] MEDS: GABAPENTIN 300 MG CAP PO SCH (20:40)
[2020-10-20] VITALS (9 sets, daily range): BP systolic 115–140; BP diastolic 57–88
[2020-10-20] MEDS: HYDROCODONE/APAP 10MG-325MG TAB PO PRN (00:35)
[2020-10-20] MEDS: HYDROMORPHONE 1MG/1ML INJ IV PRN ×2 (03:10→21:50)
[2020-10-20 06:05] LABS: BASOPHILS # (AUTO) 0.6 (0.0-0.1); EOSINOPHILS # (AUTO) 0.6 (0.0-0.4); EOSINOPHILS % 1.7 % (0.0-6.0); HEMATOCRIT 28.3 % (38.2-49.6); HEMOGLOBIN 8.4 g/dL (14.0-18.0); LYMPHOCYTES # (AUTO) 1.7 (1.0-3.2); LYMPHOCYTES % 5.2 % (18.0-39.1); MEAN CORPUSCULAR HEMOGLOBIN 29.3 pg (28-32); MEAN CORPUSCULAR HGB CONC 29.7 g/dL (31-35); MEAN CORPUSCULAR VOLUME 98.6 fL (81-99); MONOCYTES # (AUTO) 3.6 (0.2-0.8); MONOCYTES % 11.1 % (4.4-11.3); NEUTROPHILS # (AUTO) 17.1 (2.1-6.9); NEUTROPHILS % 52.5 % (38.7-80.0); PLATELET COUNT 107 x10e3/uL (140-360); RED BLOOD COUNT 2.87 x10e6/uL (4.3-5.7); RED CELL DISTRIBUTION WIDTH 22.5 % (11.7-14.4)
[2020-10-20 06:39] LABS: ANION GAP 15.5 mmol/L (8-16); CALCIUM 8.9 mg/dL (8.4-10.2); CREATININE, SERUM 3.86 mg/dL (0.72-1.25); POTASSIUM 3.5 mmol/L (3.5-5.1)
[2020-10-20] MEDS: COLLAGENASE 5 GM TUBE TP SCH (09:00)
[2020-10-20] MEDS: ASPIRIN 81 MG CHEW TAB PO SCH (09:00)
[2020-10-20] MEDS: ATORVASTATIN 40 MG TAB PO SCH (09:08)
[2020-10-20] MEDS: SEVELAMER CARBONATE 800 MG TAB PO SCH ×3 (09:08→16:29)
[2020-10-20] MEDS: INSULIN LISPRO 100 UNIT/1 ML 3ML VIAL SQ SCH ×4 (09:34→21:00)
[2020-10-20] MEDS: CEFEPIME 1 GM in SODIUM CHLORIDE 0.9% 50ML 50 ML IV SCH ×2 (11:39→22:25)
[2020-10-20] MEDS: IRON SUCROSE 100 MG in SODIUM CHLORIDE 0.9% 100 ML 100 ML IV SCH (12:05)
[2020-10-20] MEDS: GABAPENTIN 300 MG CAP PO SCH (21:38)
[2020-10-21] VITALS (7 sets, daily range): BP systolic 103–121; BP diastolic 59–73
[2020-10-21] MEDS: HYDROMORPHONE 1MG/1ML INJ IV PRN ×4 (02:30→17:11)
[2020-10-21 06:46] LABS: BASOPHILS # (AUTO) 0.8 (0.0-0.1); BASOPHILS % 1.9 % (0.0-1.0); EOSINOPHILS # (AUTO) 0.6 (0.0-0.4); EOSINOPHILS % 1.4 % (0.0-6.0); HEMATOCRIT 27.7 % (38.2-49.6); HEMOGLOBIN 8.3 g/dL (14.0-18.0); LYMPHOCYTES # (AUTO) 2.5 (1.0-3.2); LYMPHOCYTES % 6.2 % (18.0-39.1); MEAN CORPUSCULAR HEMOGLOBIN 29.4 pg (28-32); MEAN CORPUSCULAR VOLUME 98.2 fL (81-99); MONOCYTES # (AUTO) 3.6 (0.2-0.8); MONOCYTES % 8.9 % (4.4-11.3); NEUTROPHILS # (AUTO) 21.9 (2.1-6.9); NEUTROPHILS % 54.3 % (38.7-80.0); PLATELET COUNT 104 x10e3/uL (140-360); RED BLOOD COUNT 2.82 x10e6/uL (4.3-5.7); RED CELL DISTRIBUTION WIDTH 22.3 % (11.7-14.4)
[2020-10-21] MEDS: INSULIN LISPRO 100 UNIT/1 ML 3ML VIAL SQ SCH ×4 (07:30→20:52)
[2020-10-21 07:43] LABS: BAND NEUTROPHILS % (MANUAL) 6 %; EOSINOPHILS % (MANUAL) 1 % (0-7); LYMPHOCYTES % (MANUAL) 9 % (19-48); METAMYELOCYTES % (MANUAL) 2 % (0-0); MONOCYTES % (MANUAL) 4 % (3.4-9.0); MYELOCYTES % (MANUAL) 8 % (0-0); NEUTROPHILS % (MANUAL) 69 % (40-74); NUCLEATED RED BLOOD CELLS 3; PROMYELOCYTES % (MANUAL) 1 % (0-0)
[2020-10-21 07:44] LABS: ANISOCYTOSIS MODERATE; HYPOCHROMASIA SLIGHT; PLATELET ESTIMATE SLIGHTLY DECREASED; PLATELET MORPHOLOGY COMMENT NORMAL; POLYCHROMASIA FEW; RBC MORPHOLOGY COMMENT ABNORMAL
[2020-10-21] MEDS: SEVELAMER CARBONATE 800 MG TAB PO SCH ×3 (08:00→17:07)
[2020-10-21 08:27] LABS: ALBUMIN 3.3 g/dL (3.5-5.0); ALBUMIN/GLOBULIN RATIO 1.1 (0.8-2.0); CALCIUM 9.3 mg/dL (8.4-10.2); CREATININE, SERUM 4.98 mg/dL (0.72-1.25)
[2020-10-21] MEDS: ASPIRIN 81 MG CHEW TAB PO SCH (11:07)
[2020-10-21] MEDS: ATORVASTATIN 40 MG TAB PO SCH (11:07)
[2020-10-21] MEDS: CEFEPIME 1 GM in SODIUM CHLORIDE 0.9% 50ML 50 ML IV SCH ×2 (11:13→23:00)
[2020-10-21] MEDS: IRON SUCROSE 100 MG in SODIUM CHLORIDE 0.9% 100 ML 100 ML IV SCH (12:56)
[2020-10-21] MEDS: COLLAGENASE 5 GM TUBE TP SCH (15:11)
[2020-10-21] MEDS: GABAPENTIN 300 MG CAP PO SCH (20:38)
[2020-10-22] VITALS (9 sets, daily range): BP systolic 109–148; BP diastolic 62–86
[2020-10-22] MEDS: HYDROMORPHONE 1MG/1ML INJ IV PRN ×2 (02:30→21:38)
[2020-10-22 05:21] LABS: BASOPHILS # (AUTO) 1.1 (0.0-0.1); BASOPHILS % 2.4 % (0.0-1.0); EOSINOPHILS # (AUTO) 0.7 (0.0-0.4); EOSINOPHILS % 1.5 % (0.0-6.0); HEMATOCRIT 28.6 % (38.2-49.6); HEMOGLOBIN 8.5 g/dL (14.0-18.0); LYMPHOCYTES # (AUTO) 3.3 (1.0-3.2); MEAN CORPUSCULAR HEMOGLOBIN 29.6 pg (28-32); MEAN CORPUSCULAR HGB CONC 29.7 g/dL (31-35); MEAN CORPUSCULAR VOLUME 99.7 fL (81-99); MONOCYTES # (AUTO) 4.1 (0.2-0.8); MONOCYTES % 8.8 % (4.4-11.3); NEUTROPHILS # (AUTO) 24.3 (2.1-6.9); NEUTROPHILS % 52.2 % (38.7-80.0); PLATELET COUNT 107 x10e3/uL (140-360); RED BLOOD COUNT 2.87 x10e6/uL (4.3-5.7); RED CELL DISTRIBUTION WIDTH 21.9 % (11.7-14.4)
[2020-10-22 05:38] LABS: INR 1.12; PROTHROMBIN TIME 14.6 seconds (11.9-14.5)
[2020-10-22 05:54] LABS: ALBUMIN 3.1 g/dL (3.5-5.0); ANION GAP 19.5 mmol/L (8-16); CALCIUM 9.1 mg/dL (8.4-10.2); CREATININE, SERUM 5.84 mg/dL (0.72-1.25); POTASSIUM 4.5 mmol/L (3.5-5.1)
[2020-10-22] MEDS: INSULIN LISPRO 100 UNIT/1 ML 3ML VIAL SQ SCH ×4 (07:30→21:43)
[2020-10-22] MEDS: ATORVASTATIN 40 MG TAB PO SCH (09:03)
[2020-10-22] MEDS: ASPIRIN 81 MG CHEW TAB PO SCH (09:03)
[2020-10-22] MEDS: SEVELAMER CARBONATE 800 MG TAB PO SCH ×3 (09:03→17:00)
[2020-10-22 10:32] LABS: BAND NEUTROPHILS % (MANUAL) 3 %; EOSINOPHILS % (MANUAL) 1 % (0-7); LYMPHOCYTES % (MANUAL) 9 % (19-48); METAMYELOCYTES % (MANUAL) 1 % (0-0); MONOCYTES % (MANUAL) 2 % (3.4-9.0); MYELOCYTES % (MANUAL) 4 % (0-0); NEUTROPHILS % (MANUAL) 76 % (40-74); NUCLEATED RED BLOOD CELLS 3; PROMYELOCYTES % (MANUAL) 2 % (0-0)
[2020-10-22 10:33] LABS: MICROCYTOSIS SLIGHT; POLYCHROMASIA FEW
[2020-10-22] MEDS: CEFEPIME 1 GM in SODIUM CHLORIDE 0.9% 50ML 50 ML IV SCH (11:00)
[2020-10-22] MEDS: IRON SUCROSE 100 MG in SODIUM CHLORIDE 0.9% 100 ML 100 ML IV SCH (12:00)
[2020-10-22] MEDS ORDERED: SODIUM CHLORIDE 0.9% 1000ML 1,000 ML ONE (14:07)
[2020-10-22] MEDS: Vancomycin IV 1 GM in SODIUM CHLORIDE 0.9% 250ML 250 ML IV SCH (17:00)
[2020-10-22] MEDS: COLLAGENASE 5 GM TUBE TP SCH (18:40)
[2020-10-22] MEDS ORDERED: IRON SUCROSE 100 MG in SODIUM CHLORIDE 0.9% 100 ML 100 ML IV SCH (18:45)
[2020-10-22] MEDS: GABAPENTIN 300 MG CAP PO SCH (21:36)
[2020-10-23] VITALS (8 sets, daily range): BP systolic 110–135; BP diastolic 58–80
[2020-10-23] MEDS: HYDROMORPHONE 1MG/1ML INJ IV PRN (03:38)
[2020-10-23] MEDS: CEFEPIME 1 GM in SODIUM CHLORIDE 0.9% 50ML 50 ML IV SCH ×4 (03:38→23:58)
[2020-10-23 06:19] LABS: BASOPHILS # (AUTO) 0.9 (0.0-0.1); EOSINOPHILS # (AUTO) 0.8 (0.0-0.4); EOSINOPHILS % 1.8 % (0.0-6.0); HEMATOCRIT 27.6 % (38.2-49.6); HEMOGLOBIN 8.1 g/dL (14.0-18.0); LYMPHOCYTES # (AUTO) 2.4 (1.0-3.2); LYMPHOCYTES % 5.7 % (18.0-39.1); MEAN CORPUSCULAR HEMOGLOBIN 29.7 pg (28-32); MEAN CORPUSCULAR HGB CONC 29.3 g/dL (31-35); MEAN CORPUSCULAR VOLUME 101.1 fL (81-99); MONOCYTES # (AUTO) 3.8 (0.2-0.8); NEUTROPHILS # (AUTO) 22.9 (2.1-6.9); NEUTROPHILS % 53.8 % (38.7-80.0); PLATELET COUNT 96 x10e3/uL (140-360); RED BLOOD COUNT 2.73 x10e6/uL (4.3-5.7)
[2020-10-23 06:35] LABS: ALBUMIN 2.9 g/dL (3.5-5.0); ANION GAP 15.9 mmol/L (8-16); CALCIUM 9.2 mg/dL (8.4-10.2); CREATININE, SERUM 4.62 mg/dL (0.72-1.25); POTASSIUM 3.9 mmol/L (3.5-5.1)
[2020-10-23] MEDS: INSULIN LISPRO 100 UNIT/1 ML 3ML VIAL SQ SCH ×4 (07:30→21:38)
[2020-10-23] MEDS: COLLAGENASE 5 GM TUBE TP SCH (09:00)
[2020-10-23] MEDS: SEVELAMER CARBONATE 800 MG TAB PO SCH ×3 (09:16→17:02)
[2020-10-23] MEDS: ASPIRIN 81 MG CHEW TAB PO SCH (09:16)
[2020-10-23] MEDS: ATORVASTATIN 40 MG TAB PO SCH (09:16)
[2020-10-23] MEDS ORDERED: SODIUM CHLORIDE 0.9% 250ML 250 ML IV ONE (10:30)
[2020-10-23] MEDS: IRON SUCROSE 100 MG in SODIUM CHLORIDE 0.9% 100 ML 100 ML IV SCH (12:00)
[2020-10-23] MEDS: CARVEDILOL 3.125 MG TAB PO SCH (17:03)
[2020-10-23 20:42] LABS: BASOPHILS # (AUTO) 1.1 (0.0-0.1); BASOPHILS % 2.3 % (0.0-1.0); EOSINOPHILS # (AUTO) 0.4 (0.0-0.4); EOSINOPHILS % 0.9 % (0.0-6.0); HEMATOCRIT 31.2 % (38.2-49.6); HEMOGLOBIN 9.5 g/dL (14.0-18.0); LYMPHOCYTES # (AUTO) 1.6 (1.0-3.2); LYMPHOCYTES % 3.6 % (18.0-39.1); MEAN CORPUSCULAR HEMOGLOBIN 29.9 pg (28-32); MEAN CORPUSCULAR HGB CONC 30.4 g/dL (31-35); MEAN CORPUSCULAR VOLUME 98.1 fL (81-99); MONOCYTES # (AUTO) 4.7 (0.2-0.8); MONOCYTES % 10.2 % (4.4-11.3); NEUTROPHILS # (AUTO) 26.4 (2.1-6.9); NEUTROPHILS % 57.4 % (38.7-80.0); PLATELET COUNT 100 x10e3/uL (140-360); RED BLOOD COUNT 3.18 x10e6/uL (4.3-5.7); RED CELL DISTRIBUTION WIDTH 22.5 % (11.7-14.4)
[2020-10-23 21:07] LABS: ALBUMIN 3.1 g/dL (3.5-5.0); ANION GAP 16.9 mmol/L (8-16); CALCIUM 9.3 mg/dL (8.4-10.2); CREATININE, SERUM 3.92 mg/dL (0.72-1.25); POTASSIUM 3.9 mmol/L (3.5-5.1)
[2020-10-23] MEDS: GABAPENTIN 300 MG CAP PO SCH (21:18)
[2020-10-24] VITALS (9 sets, daily range): BP systolic 100–137; BP diastolic 55–82
[2020-10-24] MEDS ORDERED: SODIUM CHLORIDE 0.9% 500ML 500 ML ONE (06:55)
[2020-10-24] MEDS ORDERED: BETAMETHASONE DISODIUM PHOS 6 MG/ML VIAL ONE (07:18)
[2020-10-24] MEDS ORDERED: LIDOCAINE HCL 1% 30ML-PF VIAL ONE ×2 (07:19)
[2020-10-24] MEDS ORDERED: MUPIROCIN 2% OINT 22 GM TUBE ONE (07:19)
[2020-10-24] MEDS: INSULIN LISPRO 100 UNIT/1 ML 3ML VIAL SQ SCH ×4 (07:30→22:22)
[2020-10-24 07:33] LABS: ANION GAP 15.8 mmol/L (8-16); CALCIUM 9.4 mg/dL (8.4-10.2); CREATININE, SERUM 4.69 mg/dL (0.72-1.25); POTASSIUM 3.8 mmol/L (3.5-5.1)
[2020-10-24] MEDS: COLLAGENASE 5 GM TUBE TP SCH (09:00)
[2020-10-24] MEDS: ATORVASTATIN 40 MG TAB PO SCH (09:30)
[2020-10-24] MEDS: SEVELAMER CARBONATE 800 MG TAB PO SCH ×3 (09:30→17:35)
[2020-10-24] MEDS: CARVEDILOL 3.125 MG TAB PO SCH ×2 (09:30→17:35)
[2020-10-24] MEDS: ASPIRIN 81 MG CHEW TAB PO SCH (09:30)
[2020-10-24] MEDS: CEFEPIME 1 GM in SODIUM CHLORIDE 0.9% 50ML 50 ML IV SCH (11:59)
[2020-10-24] MEDS: IRON SUCROSE 100 MG in SODIUM CHLORIDE 0.9% 100 ML 100 ML IV SCH (13:07)
[2020-10-24] MEDS: HYDROMORPHONE 1MG/1ML INJ IV PRN ×2 (14:07→18:19)
[2020-10-24] MEDS: Vancomycin IV 1 GM in SODIUM CHLORIDE 0.9% 250ML 250 ML IV SCH (17:35)
[2020-10-24] MEDS: GABAPENTIN 300 MG CAP PO SCH (22:16)
[2020-10-25] VITALS (7 sets, daily range): BP systolic 102–131; BP diastolic 63–93
[2020-10-25 05:27] LABS: BASOPHILS % 1.7 % (0.0-1.0); EOSINOPHILS # (AUTO) 0.2 (0.0-0.4); EOSINOPHILS % 0.4 % (0.0-6.0); HEMATOCRIT 28.9 % (38.2-49.6); HEMOGLOBIN 8.6 g/dL (14.0-18.0); LYMPHOCYTES % 5.4 % (18.0-39.1); MEAN CORPUSCULAR HGB CONC 29.8 g/dL (31-35); MEAN CORPUSCULAR VOLUME 100.7 fL (81-99); MONOCYTES # (AUTO) 4.8 (0.2-0.8); MONOCYTES % 8.7 % (4.4-11.3); NEUTROPHILS # (AUTO) 33.3 (2.1-6.9); NEUTROPHILS % 60.5 % (38.7-80.0); PLATELET COUNT 104 x10e3/uL (140-360); RED BLOOD COUNT 2.87 x10e6/uL (4.3-5.7); RED CELL DISTRIBUTION WIDTH 22.6 % (11.7-14.4)
[2020-10-25 05:53] LABS: ALBUMIN 3.1 g/dL (3.5-5.0); ALBUMIN/GLOBULIN RATIO 0.9 (0.8-2.0); ANION GAP 18.6 mmol/L (8-16); CALCIUM 9.5 mg/dL (8.4-10.2); CREATININE, SERUM 5.85 mg/dL (0.72-1.25)
[2020-10-25 06:21] LABS: POTASSIUM 4.6 mmol/L (3.5-5.1)
[2020-10-25] MEDS: INSULIN LISPRO 100 UNIT/1 ML 3ML VIAL SQ SCH ×4 (08:30→21:00)
[2020-10-25] MEDS: CARVEDILOL 3.125 MG TAB PO SCH ×2 (08:55→19:09)
[2020-10-25] MEDS: ASPIRIN 81 MG CHEW TAB PO SCH (08:56)
[2020-10-25] MEDS: SEVELAMER CARBONATE 800 MG TAB PO SCH ×3 (08:56→19:09)
[2020-10-25] MEDS: COLLAGENASE 5 GM TUBE TP SCH (08:56)
[2020-10-25] MEDS: ATORVASTATIN 40 MG TAB PO SCH (08:56)
[2020-10-25] MEDS: HYDROMORPHONE 1MG/1ML INJ IV PRN (08:57)
[2020-10-25 12:00] LABS: BAND NEUTROPHILS % (MANUAL) 1 %; LYMPHOCYTES % (MANUAL) 10 % (19-48); METAMYELOCYTES % (MANUAL) 1 % (0-0); MONOCYTES % (MANUAL) 5 % (3.4-9.0); MYELOCYTES % (MANUAL) 1 % (0-0); NEUTROPHILS % (MANUAL) 74 % (40-74); NUCLEATED RED BLOOD CELLS 2; SMUDGE CELLS FEW
[2020-10-25 12:04] LABS: POLYCHROMASIA FEW; SPHEROCYTES FEW
[2020-10-25 12:05] LABS: ANISOCYTOSIS SLIG; PLATELET ESTIMATE ADEQUATE; PLATELET MORPHOLOGY COMMENT NORMAL; POIKILOCYTOSIS SLIGHT; RBC MORPHOLOGY COMMENT NORMAL
[2020-10-25] MEDS: IRON SUCROSE 100 MG in SODIUM CHLORIDE 0.9% 100 ML 100 ML IV SCH (13:00)
[2020-10-25] MEDS ORDERED: CEFEPIME 1 GM in SODIUM CHLORIDE 0.9% 50ML 50 ML IV SCH (17:00)
[2020-10-25] MEDS: ZIPRASIDONE 20 MG VIAL IM PRN (21:00)
[2020-10-26] VITALS (8 sets, daily range): BP systolic 97–122; BP diastolic 61–76
[2020-10-26] MEDS: HYDROMORPHONE 1MG/1ML INJ IV PRN ×5 (01:15→22:25)
[2020-10-26] MEDS: CEFEPIME 1 GM in SODIUM CHLORIDE 0.9% 50ML 50 ML IV SCH (04:00)
[2020-10-26 06:16] LABS: BASOPHILS # (AUTO) 1.2 (0.0-0.1); BASOPHILS % 2.2 % (0.0-1.0); EOSINOPHILS # (AUTO) 0.2 (0.0-0.4); EOSINOPHILS % 0.3 % (0.0-6.0); HEMATOCRIT 29.3 % (38.2-49.6); HEMOGLOBIN 8.8 g/dL (14.0-18.0); LYMPHOCYTES # (AUTO) 2.3 (1.0-3.2); LYMPHOCYTES % 4.1 % (18.0-39.1); MEAN CORPUSCULAR HEMOGLOBIN 29.9 pg (28-32); MEAN CORPUSCULAR VOLUME 99.7 fL (81-99); MONOCYTES % 10.6 % (4.4-11.3); NEUTROPHILS # (AUTO) 33.2 (2.1-6.9); NEUTROPHILS % 58.6 % (38.7-80.0); PLATELET COUNT 111 x10e3/uL (140-360); RED BLOOD COUNT 2.94 x10e6/uL (4.3-5.7)
[2020-10-26 06:34] LABS: ALBUMIN/GLOBULIN RATIO 0.9 (0.8-2.0); ANION GAP 19.3 mmol/L (8-16); CALCIUM 9.4 mg/dL (8.4-10.2); CREATININE, SERUM 4.64 mg/dL (0.72-1.25); POTASSIUM 4.3 mmol/L (3.5-5.1)
[2020-10-26 09:00] LABS: BAND NEUTROPHILS % (MANUAL) 2 %; LYMPHOCYTES % (MANUAL) 9 % (19-48); METAMYELOCYTES % (MANUAL) 1 % (0-0); MONOCYTES % (MANUAL) 5 % (3.4-9.0); MYELOCYTES % (MANUAL) 1 % (0-0); NEUTROPHILS % (MANUAL) 78 % (40-74); NUCLEATED RED BLOOD CELLS 2
[2020-10-26] MEDS: SEVELAMER CARBONATE 800 MG TAB PO SCH ×3 (09:00→17:57)
[2020-10-26] MEDS: INSULIN LISPRO 100 UNIT/1 ML 3ML VIAL SQ SCH ×4 (09:22→20:57)
[2020-10-26] MEDS: ATORVASTATIN 40 MG TAB PO SCH (10:00)
[2020-10-26] MEDS: COLLAGENASE 5 GM TUBE TP SCH (10:00)
[2020-10-26] MEDS: ASPIRIN 81 MG CHEW TAB PO SCH (10:00)
[2020-10-26] MEDS: CARVEDILOL 3.125 MG TAB PO SCH ×2 (10:00→17:57)
[2020-10-26] MEDS: ZIPRASIDONE 20 MG VIAL IM PRN ×2 (12:22→20:57)
[2020-10-26] MEDS: Vancomycin IV 1 GM in SODIUM CHLORIDE 0.9% 250ML 250 ML IV SCH (17:56)
[2020-10-27] VITALS: BP 103/56
[2020-10-27] MEDS ORDERED: LORAZEPAM INJ 2 MG/ML VIAL IV PRN (01:45)
[2020-10-27] MEDS: HYDROMORPHONE 1MG/1ML INJ IV PRN (03:41)
[2020-10-27] MEDS: CEFEPIME 1 GM in SODIUM CHLORIDE 0.9% 50ML 50 ML IV SCH (04:00)
== END 2020-10-27 15:18 | disposition expired | DRG 853 ==
LOC: ER 13:11 → ERHOLD 14:25 → MED/SURG3 10-15 12:32
PROVIDERS: ADMIT Internal Medicine; ATTEND Internal Medicine
PROC: 5A1D70Z Performance of Urinary Filtration, Intermittent, Less than 6 Hours Per Day (ICD-10-PCS; 2020-10-14)
PROC: 0QBP0ZZ Excision of Left Metatarsal, Open Approach (ICD-10-PCS; 2020-10-17)
PROC: 0QBN0ZZ Excision of Right Metatarsal, Open Approach (ICD-10-PCS; 2020-10-17)
PROC: 30233N1 Transfusion of Nonautologous Red Blood Cells into Peripheral Vein, Percutaneous Approach (ICD-10-PCS; 2020-10-19)
PROC: 0Y6N0Z0 Detachment at Left Foot, Complete, Open Approach (ICD-10-PCS; 2020-10-24)
PROC: 0JXR0ZC Transfer Left Foot Subcutaneous Tissue and Fascia with Skin, Subcutaneous Tissue and Fascia, Open Approach (ICD-10-PCS; 2020-10-24)
PROC: 0LXW0ZZ Transfer Left Foot Tendon, Open Approach (ICD-10-PCS; 2020-10-24)
PROC: 0L8W0ZZ Division of Left Foot Tendon, Open Approach (ICD-10-PCS; 2020-10-24)
PROC: 0J9R0ZZ Drainage of Left Foot Subcutaneous Tissue and Fascia, Open Approach (ICD-10-PCS; principal; 2020-10-24 07:11)
PROC: 5A12012 Performance of Cardiac Output, Single, Manual (ICD-10-PCS; 2020-10-27)
DX: A41.02 Sepsis due to Methicillin resistant Staphylococcus aureus (principal); R65.21 Severe sepsis with septic shock; N18.6 End stage renal disease; M86.8X7 Other osteomyelitis, ankle and foot; E11.52 Type 2 diabetes mellitus with diabetic peripheral angiopathy with gangrene; I96 Gangrene, not elsewhere classified; N25.81 Secondary hyperparathyroidism of renal origin; I13.2 Hypertensive heart and chronic kidney disease with heart failure and with stage 5 chronic kidney disease, or end stage renal disease; I50.42 Chronic combined systolic (congestive) and diastolic (congestive) heart failure; C91.10 Chronic lymphocytic leukemia of B-cell type not having achieved remission; Z99.2 Dependence on renal dialysis; Z79.899 Other long term (current) drug therapy; J44.9 Chronic obstructive pulmonary disease, unspecified; E11.69 Type 2 diabetes mellitus with other specified complication; Z91.19 Patient's noncompliance with other medical treatment and regimen; I25.10 Atherosclerotic heart disease of native coronary artery without angina pectoris; E11.319 Type 2 diabetes mellitus with unspecified diabetic retinopathy without macular edema; E87.5 Hyperkalemia; F41.9 Anxiety disorder, unspecified; M16.10 Unilateral primary osteoarthritis, unspecified hip; M17.10 Unilateral primary osteoarthritis, unspecified knee; Z86.73 Personal history of transient ischemic attack (TIA), and cerebral infarction without residual deficits; Z96.659 Presence of unspecified artificial knee joint; Z96.649 Presence of unspecified artificial hip joint; T87.81 Dehiscence of amputation stump; I70.0 Atherosclerosis of aorta; E66.9 Obesity, unspecified; Z68.34 Body mass index [BMI] 34.0-34.9, adult; D69.59 Other secondary thrombocytopenia; E11.22 Type 2 diabetes mellitus with diabetic chronic kidney disease; R45.1 Restlessness and agitation
CPT/HCPCS: 36415; 70450; 71045; 80048; 80053; 82948; 83605; 84100; 85025; 85610; 85730; 86704; 86705; 86706; 86707; 86850; 86900; 86920; 87040; 87071; 87075; 87186; 87205; 87340; 87350; 88304; 88311; 93005; 93970; 96372; 99251; 99284; C1713; J0692; J0720; J1170; J1756; J2001; J2060; J2405; J3370; J3486; J7030; J7040; J7050; J7799; P9016; U0002